=== PATIENT | male | born 1935 | race Caucasian/White ===

== ENCOUNTER → 2016-08-30 | Outpatient (CLI) | payer MEDICARE ==
[2016-08-30 12:40] LABS: Anion Gap 11 mmol/L; Blood Urea Nitrogen 26 mg/dL (9-20); Carbon Dioxide 28 mmol/L (22-30); Chloride 105 mmol/L (98-107); Non-African American GFR(MDRD) >60 (>60 ml/min/1.73 sqM); Potassium 4.6 mmol/L (3.5-5.1); Sodium 144 mmol/L (137-145)
[2016-08-30 12:48] LABS: CH 29.6; CHCM 31.4; HCT 37.3 % (39.0-53.0); HDW 2.33; HGB 11.6 gm/dL (13.0-17.5); MCH 29.5 pg (25.0-35.0); MCHC 31.1 g/dL (31.0-37.0); MCV 94.7 fL (80.0-100.0); Mean Platelet Volume 7.1; RBC 3.94 m/uL (4.30-5.90); RDW 13.8 % (11.5-15.5); WBC 5.5 k/uL (3.8-10.6)
== END | disposition home or self-care (01) ==
LOC: LABPAT 11:54
PROVIDERS: ATTEND Internal Medicine Interventional Cardiology
DX: Z01.812 Encounter for preprocedural laboratory examination (principal); I25.10 Atherosclerotic heart disease of native coronary artery without angina pectoris
CPT/HCPCS: 36415; 80051; 82565; 84520; 85027

== ENCOUNTER 2016-09-08 05:51 | Day surgery (SDC) | payer MEDICARE ==
[2016-09-05 14:41] VITALS: BMI 21.2
[2016-09-08] MEDS ORDERED: ALPRAZolam 0.5 MG TAB PO PRN (05:53)
[2016-09-08] MEDS ORDERED: NITROGLYCERIN SL TABS 0.4 MG TAB SUBLINGUAL PRN (05:53)
[2016-09-08] MEDS ORDERED: ATORVASTATIN 80 MG TAB PO STA (05:53)
[2016-09-08] MEDS ORDERED: ALPRAZolam 0.25 MG TAB PO PRN (05:53)
[2016-09-08] MEDS ORDERED: ASPIRIN 325 MG TAB PO STA (05:53)
[2016-09-08] MEDS ORDERED: SODIUM CHLORIDE 0.9% 1,000 ML in EMPTY BAG 1 BAG IV ONE (05:53)
[2016-09-08 06:21] VITALS: RESP 16; TEMP 98.1
[2016-09-08 06:25] LABS: Glucose,Whole Blood 92 mg/dL (75-99)
[2016-09-08] MEDS ORDERED: MIDAZOLAM 2 MG/2 ML VIAL ONE (06:40)
[2016-09-08] MEDS ORDERED: fentaNYL (PF) 50 MCG/ML 2 ML AMP ONE (06:41)
[2016-09-08] MEDS: BENZOCAINE SPRAY 100 APPLIC/CAN MUCOUS MEM ONE ×2 (06:55→07:00)
[2016-09-08] MEDS ORDERED: SODIUM CHLORIDE 0.9% 1,000 ML IV ONE (07:05)
[2016-09-08] MEDS ORDERED: fentaNYL (PF) 50 MCG/ML 2 ML AMP IV ONE (07:11)
[2016-09-08] MEDS ORDERED: MIDAZOLAM 2 MG/2 ML VIAL IVP ONE (07:11)
[2016-09-08] MEDS ORDERED: LIDOCAINE 2% INJ 20 MG/ML (20 ML MDV) ONE (07:19)
[2016-09-08] MEDS ORDERED: LIDOCAINE 2% INJ 20 MG/ML SQ ONE (07:50)
[2016-09-08] MEDS ORDERED: IOHEXOL 350 MG/ML 125ML BOTTLE INJ ONE (08:24)
[2016-09-08 08:35] LABS: Site PA
[2016-09-08 08:36] LABS: Site RA
[2016-09-08 08:36] LABS: Site FA
[2016-09-08] MEDS ORDERED: RX INFO: IV CONTRAST WAS GIVEN 1 EACH MISC MISCELLANE PRN (08:42)
[2016-09-08] MEDS ORDERED: SODIUM CHLORIDE 0.9% 1,000 ML IV SCH (08:45)
[2016-09-08] MEDS ORDERED: FERROUS SULFATE 325 MG TAB PO SCH (09:00)
[2016-09-08] MEDS ORDERED: HYDROCHLOROTHIAZIDE 12.5 MG CAP PO SCH (09:00)
[2016-09-08] MEDS ORDERED: NON-FORMULARY DRUG (Ubidecarenone [Co Q-10] 200 MG) PO SCH (09:00)
[2016-09-08] MEDS ORDERED: CHOLECALCIFEROL 1,000 UNIT TAB PO SCH (09:00)
[2016-09-08 13:29] VITALS: BP 121/58; PULSE 60
--- NOTE | 2016-09-08 17:30 | CC ---
DATE OF SERVICE: Mr. Contreras is an 81-year-old male who was noted to have progression of his aortic valve stenosis. In view of that, recommendation was made regarding cardiac catheterization. The procedure as well as risks and complications were discussed with the patient, who was in full understanding and agreement. PROCEDURE: Patient was brought to botany laboratory assistant in a fasting, semi-sedated state after receiving fentanyl and Benadryl and achieving moderate conscious sedated state. Using Xylocaine anesthesia and Seldinger technique, a 6 Russian sheath was introduced in the right femoral artery and an 8 Russian sheath in the right femoral vein. Right heart catheterization was performed using [place] catheter. Multiple pressures and samples were obtained. Cardiac output by thermodilution was calculated. Following that, selective right and left coronary angiography was performed with 6 Russian 4 Bend right and left Amairani catheters. Multiple views were taken of the arteries, including hemiaxial views. Following that, a 6 Russian tight pigtail catheter was introduced into the left ventricle and a 30-degree AREVALO view of the left ventricle was obtained. Following that, catheters and sheaths were removed. Hemostasis was obtained with compression of the right groin. There were no immediate complications. Patient was returned to his room in stable condition. FINDINGS HEMODYNAMICS: Pulmonary artery saturation 80%. Right atrial saturation 82%. Femoral artery saturation 97%. Pulmonary artery systolic pressure of 16 with an end-diastolic of 4 and a mean of 7. Pulmonary capillary wedge pressure A wave of 7, V wave of 10, with a mean of 5 mmHg. Right ventricular systolic pressure of 22 with an end-diastolic of 3 mmHg. Right atrial A wave of 3, V wave of 2, with a mean of 2 mmHg. Left ventricular end-diastolic pressure of 8 mmHg. The peak gradient across the aortic valve was 60 mmHg. The cardiac output by thermodilution 5.6 L/minute. Aortic valve area of 0.9 sq cm. FLUOROSCOPY: There is severe calcification involving the aortic valve and the coronary arteries. LEFT MAIN: This is a large-sized vessel bifurcating into left circumflex, left anterior descending artery. Left main coronary artery has a 20% to 30% plaque distally prior to the bifurcation in a long segment. LEFT ANTERIOR DESCENDING ARTERY: This is a large-sized vessel reaching toward the apex with a wrap around the apex segment giving rise to a moderately sized diagonal branch. Left anterior descending artery has diffuse intimal disease with an area of stenosis up to 40%. The takeoff of the diagonal branch has an 80% to 85% stenosis. The rest of the vessel has no high-grade stenosis. LEFT CIRCUMFLEX: This is a non-dominant vessel, large in caliber, giving rise to 2 obtuse marginal branches. The first one has a branching segment. The left circumflex has diffuse intimal disease with an area of stenosis up to 30% to 40% without any evidence of high-grade stenosis. RIGHT CORONARY ARTERY: This is a large dominant vessel bifurcating distally into PDA and posterolateral segment and branches, calcified in the mid segment; has an area of stenosis up to 30%. The rest of the vessel has no high-grade stenosis. LEFT VENTRICULOGRAM: Left ventriculogram was performed in 30-degree AREVALO view and revealed normal left ventricular size and systolic function. The ejection fraction was 60%. There was mild mitral regurgitation. CONCLUSION: 1. Calcified coronary arteries. 2. Heavily calcified aortic valve. 3. Mild disease in the distal left main with significant disease of the ostium of the diagonal branch and mild to moderate triple-vessel disease. 4. Normal left ventricular size and systolic function. 5. Severe aortic stenosis. RECOMMENDATIONS: In view of the findings and anatomy, I have recommended proceeding with evaluation for TAVR. Those findings and recommendations were discussed with the patient and his family, and they are in full understanding and agreement. DURATION OF PROCEDURE: 35 minutes.
--- NOTE | 2016-09-08 17:32 | LTR ---
September 08, 2016 RE: Shaheen Contreras Dear Dr. Arce, I had the pleasure of performing cardiac catheterization on Mr. Contreras at [facility] on September 08, and a full copy of the procedure note will be forwarded to you. In brief, he was found to have mild to moderate triple-vessel coronary artery disease with a severely calcified aortic valve and severe aortic stenosis. Based on those findings, I have recommended proceeding with evaluation for TAVR. I will keep you updated on his progress. Thank you again for allowing me to participate in his care. Sincerely, SIMONA ARANDA MD
[2016-09-08] MEDS ORDERED: ATORVASTATIN 40 MG TAB PO SCH (21:00)
[2016-09-08] MEDS ORDERED: NON-FORMULARY DRUG (Lisinopril [Lisinopril] 40 MG) PO SCH (21:00)
[2016-09-08] MEDS ORDERED: NON-FORMULARY DRUG (Aspirin [Adult Low Dose Aspirin Ec] 81 MG) PO SCH (21:00)
[2016-09-09] MEDS ORDERED: NON-FORMULARY DRUG (Omeprazole [Prilosec] 20 MG) PO SCH (07:30)
--- NOTE | 2016-09-13 09:46 | ECHOT ---
DATE OF SERVICE: CLINICAL INFORMATION: Evaluation of aortic valve. PROCEDURE: After explaining the procedure to the patient as well as the risks and complications, his blood pressure, heart rate, O2 saturation was monitored. The throat was sprayed with Cetacaine. He received 2 mg of intravenous Versed, 50 mcg intravenous fentanyl. After achieving moderate conscious sedation state, the probe was introduced into the esophagus without difficulty. Images were obtained. Following that, the probe was removed. There were no immediate complications. FINDINGS: Left atrial size is normal. Left atrial appendage is normal. Left ventricular size and systolic function normal. The aortic valve is a tricuspid valve heavily calcified with significant reduction in the opening. The aortic valve area by planimetry 0.9 sq cm. The mitral valve revealed mild thickening of the leaflets. The tricuspid valve is normal. Descending thoracic aorta revealed mild atherosclerotic changes. No pericardial effusion was noted. Contrast bubble study was performed and revealed no evidence of shunting across the interatrial septum with Valsalva maneuver. Doppler pulse wave and color Doppler obtained and revealed a mild mitral and tricuspid regurgitation. The peak gradient across the aortic valve was 64 mmHg with a mean of 29 mmHg. There was no shunting by color Doppler study. CONCLUSION: 1. Normal left ventricular size and systolic function and left ventricular hypertrophy. 2. Severe aortic stenosis with tricuspid valve and a peak gradient of 64 mmHg and a valve area of 0.9 sq cm. 3. Mild mitral and tricuspid regurgitation. 4. Mild atherosclerotic changes of the descending thoracic aorta.
== END 2016-09-08 16:09 | disposition home or self-care (01) ==
LOC: CATHCVL 05:51
PROVIDERS: ATTEND Internal Medicine Interventional Cardiology
DX: I25.10 Atherosclerotic heart disease of native coronary artery without angina pectoris (principal); I25.84 Coronary atherosclerosis due to calcified coronary lesion; I08.2 Rheumatic disorders of both aortic and tricuspid valves; I70.0 Atherosclerosis of aorta; I51.7 Cardiomegaly; I10 Essential (primary) hypertension; E78.2 Mixed hyperlipidemia; Z82.49 Family history of ischemic heart disease and other diseases of the circulatory system; E11.9 Type 2 diabetes mellitus without complications; Z79.84 Long term (current) use of oral hypoglycemic drugs; I73.9 Peripheral vascular disease, unspecified; Z79.82 Long term (current) use of aspirin; Z79.899 Other long term (current) drug therapy
CPT/HCPCS: 93312; 93320; 93325; 93460; 85018; 82810; 99152; 99153 ×6; C1769 ×3; C1894 ×2; J2001; J2250; J3010; Q9967

== ENCOUNTER 2018-05-17 17:53 | Inpatient (IN) | payer MEDICARE ==
[2018-05-17] MEDS ORDERED: SODIUM CHLORIDE 0.9% 500 ML 500 ML IV STA (18:21)
[2018-05-17] MEDS ORDERED: SODIUM CHLORIDE 0.9% 1,000 ML IV STA (18:21)
[2018-05-17] MEDS ORDERED: DIPH,PERTUS(ACELL)TETVAC-LF 0.5 ML VIAL IM ONE (18:22)
[2018-05-17 18:56] LABS: Basophils % (A) 0 %; Eosinophils % (A) 0 %; HCT 42.3 % (39.0-53.0); HGB 13.7 gm/dL (13.0-17.5); Lymphocytes # (A) 0.6 k/uL (1.0-4.8); Lymphocytes % (A) 4 %; MCH 29.6 pg (25.0-35.0); MCHC 32.4 g/dL (31.0-37.0); MCV 91.4 fL (80.0-100.0); Mean Platelet Volume 6.8; Monocytes # (A) 0.6 k/uL (0-1.0); Monocytes % (A) 4 %; Neutrophils # (A) 12.7 k/uL (1.3-7.7); Neutrophils % (A) 90 %; RBC 4.62 m/uL (4.30-5.90); RDW 14.2 % (11.5-15.5); WBC 14.1 k/uL (3.8-10.6)
[2018-05-17 18:57] LABS: Platelet Count 91 k/uL (150-450)
--- NOTE | 2018-05-17 19:07 | ED ---
General Adult HPI - General Chief complaint: Weakness Stated complaint: Fall Time Seen by Provider: 05/17/18 17:54 Source: patient, EMS, RN notes reviewed, old records reviewed Mode of arrival: EMS Limitations: no limitations - History of Present Illness Initial comments: 83-year-old male presents with an episode confusion, fall, concern for near- syncope. Patient was found by his son in the bathroom next to the toilet. Patient denied pain complaints, but have some minor trauma to the left great toe. Denied head or neck trauma. States he felt unwell. Denied chest pain or abdominal pain. Denies focal numbness or weakness. Denied headache. States he has not had much to eat or drink throughout the day today. Denies fever or chills. Denies cough or URI symptoms. She states he did feel somewhat confused but this has resolved. - Related Data Home Medications Medication Instructions Recorded Confirmed Omeprazole [PriLOSEC] 20 mg PO DAILY 05/10/14 05/17/18 metFORMIN HCL [Glucophage] 500 mg PO BID 05/10/14 05/17/18 Hydrochlorothiazide [Hydrodiuril] 12.5 mg PO DAILY 09/05/16 05/17/18 Lisinopril 40 mg PO HS 09/05/16 05/17/18 Atorvastatin [Lipitor] 20 mg PO HS 05/17/18 05/17/18 Allergies Allergy/AdvReac Type Severity Reaction Status Date / Time No Known Allergies Allergy Verified 05/17/18 18:11 Review of Systems ROS Statement: Those systems with pertinent positive or pertinent negative responses have been documented in the HPI. ROS Other: All systems not noted in ROS Statement are negative. Past Medical History Past Medical History: Diabetes Mellitus, GERD/Reflux, Hyperlipidemia, Hypertension, Osteoarthritis (OA) Additional Past Medical History / Comment(s): heart murmur, [place], back pain, pacemaker History of Any Multi-Drug Resistant Organisms: None Reported Past Surgical History: Orthopedic Surgery, Tonsillectomy Additional Past Surgical History / Comment(s): right shoulder surgery, rt carotid endarterectomy, luis cataracts, rt foot surgery Past Anesthesia/Blood Transfusion Reactions: No Reported Reaction Past Psychological History: No Psychological Hx Reported Smoking Status: Never smoker Past Alcohol Use History: None Reported Past Drug Use History: None Reported - Past Family History Brother(s) Family Medical History: Cancer General Exam Limitations: no limitations General appearance: alert, in no apparent distress Head exam: Present: atraumatic, normocephalic Eye exam: Present: normal appearance, PERRL, EOMI ENT exam: Present: mucous membranes dry Neck exam: Present: normal inspection. Absent: tenderness, meningismus Respiratory exam: Present: normal lung sounds bilaterally, chest wall tenderness (Abrasion and erythema left posterior chest wall.). Absent: respiratory distress, wheezes Cardiovascular Exam: Present: regular rate, normal rhythm GI/Abdominal exam: Present: soft. Absent: distended, tenderness, guarding Extremities exam: Present: normal capillary refill, other (Blister, plantar surface left great toe, 1cm). Absent: pedal edema Neurological exam: Present: alert, oriented X3, CN II-XII intact. Absent: motor sensory deficit Psychiatric exam: Present: normal affect, normal mood Skin exam: Present: warm, dry, intact. Absent: cyanosis, diaphoretic Course Vital Signs 05/17/18 17:55 Temperature 98 F Pulse Rate 110 H Respiratory 16 Rate Blood Pressure 128/81 O2 Sat by Pulse 98 Oximetry EKG Findings - EKG Comments: EKG Findings:: EKG: Temperature electronic pacemaker, rate 62, QRS duration 154 , QTC 45. Medical Decision Making - Medical Decision Making 83-year-old male presenting with possible fall, concern for prolonged downtime. Patient does have minor abrasion to the left posterior chest wall, and superficial abrasion and blistering of the right great toe, no other injuries noted on exam. According to the son he may have been down for 5 or more hours. Patient has no complaints time my evaluation, vital signs are stable, he is alert and oriented, nonfocal neurologic exam. Imaging is obtained including head CT which is negative for intracranial hemorrhage or mass effect, chest x- ray negative for acute cardiopulmonary disease, pelvis x-ray obtained, negative for fracture or dislocation. Patient has mild leukocytosis with no additional signs of infection at this time. Platelets are 91. Patient has significantly elevated creatinine kinase of 5770. Mild troponin elevation which appears chronic for this patient. Urinalysis pending. Patient will be admitted for IV hydration and repeat laboratory testing including serial cardiac enzymes. Diagnosis: Dehydration, rhabdomyolysis, elevated troponin - Lab Data Result diagrams: 05/17/18 18:39 05/17/18 18:39 Lab Results 05/17/18 05/17/18 05/17/18 Range/Units 18:39 18:39 18:39 WBC 14.1 H (3.8-10.6) k/uL RBC 4.62 (4.30-5.90) m/uL Hgb 13.7 (13.0-17.5) gm/dL Hct 42.3 (39.0-53.0) % MCV 91.4 (80.0-100.0) fL MCH 29.6 (25.0-35.0) pg MCHC 32.4 (31.0-37.0) g/dL RDW 14.2 (11.5-15.5) % Plt Count 91 L (150-450) k/uL Neutrophils % 90 % Lymphocytes % 4 % Monocytes % 4 % Eosinophils % 0 % Basophils % 0 % Neutrophils # 12.7 H (1.3-7.7) k/uL Lymphocytes # 0.6 L (1.0-4.8) k/uL Monocytes # 0.6 (0-1.0) k/uL Eosinophils # 0.0 (0-0.7) k/uL Basophils # 0.0 (0-0.2) k/uL PT (9.0-12.0) sec INR (<1.2) APTT (22.0-30.0) sec Sodium 143 (137-145) mmol/L Potassium 4.0 (3.5-5.1) mmol/L Chloride 108 H (98-107) mmol/L Carbon Dioxide 26 (22-30) mmol/L Anion Gap 9 mmol/L BUN 32 H (9-20) mg/dL Creatinine 1.08 (0.66-1.25) mg/dL Est GFR (CKD-EPI)AfAm 72 (>60 ml/min/1.73 sqM) Est GFR (CKD-EPI)NonAf 63 (>60 ml/min/1.73 sqM) Glucose 126 H (74-99) mg/dL Plasma Lactic Acid Adriel (0.7-2.0) mmol/L Calcium 10.1 (8.4-10.2) mg/dL Magnesium 2.0 (1.6-2.3) mg/dL Total Bilirubin 1.1 (0.2-1.3) mg/dL AST 121 H (17-59) U/L ALT 48 (21-72) U/L Alkaline Phosphatase 57 (38-126) U/L Total Creatine Kinase 5779 H* (55-170) U/L CK-MB (CK-2) 23.8 H (0.0-2.4) ng/mL CK-MB (CK-2) Rel Index Troponin I 0.090 H* (0.000-0.034) ng/mL Total Protein 7.5 (6.3-8.2) g/dL Albumin 4.3 (3.5-5.0) g/dL 05/17/18 05/17/18 Range/Units 18:39 18:39 WBC (3.8-10.6) k/uL RBC (4.30-5.90) m/uL Hgb (13.0-17.5) gm/dL Hct (39.0-53.0) % MCV (80.0-100.0) fL MCH (25.0-35.0) pg MCHC (31.0-37.0) g/dL RDW (11.5-15.5) % Plt Count (150-450) k/uL Neutrophils % % Lymphocytes % % Monocytes % % Eosinophils % % Basophils % % Neutrophils # (1.3-7.7) k/uL Lymphocytes # (1.0-4.8) k/uL Monocytes # (0-1.0) k/uL Eosinophils # (0-0.7) k/uL Basophils # (0-0.2) k/uL PT 10.6 (9.0-12.0) sec INR 1.0 (<1.2) APTT 23.5 (22.0-30.0) sec Sodium (137-145) mmol/L Potassium (3.5-5.1) mmol/L Chloride (98-107) mmol/L Carbon Dioxide (22-30) mmol/L Anion Gap mmol/L BUN (9-20) mg/dL Creatinine (0.66-1.25) mg/dL Est GFR (CKD-EPI)AfAm (>60 ml/min/1.73 sqM) Est GFR (CKD-EPI)NonAf (>60 ml/min/1.73 sqM) Glucose (74-99) mg/dL Plasma Lactic Acid Adriel 1.7 (0.7-2.0) mmol/L Calcium (8.4-10.2) mg/dL Magnesium (1.6-2.3) mg/dL Total Bilirubin (0.2-1.3) mg/dL AST (17-59) U/L ALT (21-72) U/L Alkaline Phosphatase (38-126) U/L Total Creatine Kinase (55-170) U/L CK-MB (CK-2) (0.0-2.4) ng/mL CK-MB (CK-2) Rel Index Troponin I (0.000-0.034) ng/mL Total Protein (6.3-8.2) g/dL Albumin (3.5-5.0) g/dL Disposition Clinical Impression: Dehydration, Rhabdomyolysis, Elevated troponin Disposition: ADMITTED IP TO THIS HOSP Condition: Stable Is patient prescribed a controlled substance at d/c from ED?: No Referrals: Rudy Arce MD [Primary Care Provider] - 1-2 days Time of Disposition: 20:26
[2018-05-17 19:09] LABS: Albumin 4.3 g/dL (3.5-5.0); Calcium 10.1 mg/dL (8.4-10.2); Partial Thromboplastin Time 23.5 sec (22.0-30.0); Prothrombin Time 10.6 sec (9.0-12.0); Total Bilirubin 1.1 mg/dL (0.2-1.3)
[2018-05-17 19:10] LABS: Total Protein 7.5 g/dL (6.3-8.2)
[2018-05-17 19:18] LABS: Creatine Kinase MB 23.8 ng/mL (0.0-2.4)
[2018-05-17 19:31] LABS: Troponin I 0.09 ng/mL (0.000-0.034)
--- NOTE | 2018-05-17 19:37 | XR ---
EXAMINATION TYPE: XR pelvis AP view DATE OF EXAM: 05/17/2018 COMPARISON: NONE HISTORY: Pain TECHNIQUE: Single view FINDINGS: Pelvic ring is intact. Proximal femurs and hip joints are intact. Sacroiliac joints appear normal. IMPRESSION: No acute abnormality of the pelvis. No fracture seen.
--- NOTE | 2018-05-17 19:37 | CT ---
EXAMINATION TYPE: CT brain damon enriquez DATE OF EXAM: 05/17/2018 COMPARISON: None HISTORY: Fall. CT DLP: 1205.6 mGycm Automated exposure control for dose reduction was used. TECHNIQUE: CT scan of the head and cervical spine are performed without contrast. FINDINGS: There is diffuse cerebral cortical atrophy. There is no mass effect nor midline shift. Th ere is no sign of intracranial hemorrhage. The calvarium is intact. There is mild white matter hypode nsity around the lateral ventricles. The cervical vertebra have fairly normal alignment. There is degenerative hypertrophic spurring in th e mid and lower cervical spine. Posterior elements are intact. There is multilevel hypertrophic bilat eral facet arthropathy. The skull base is intact. Prevertebral soft tissues appear normal. IMPRESSION: Cerebral atrophy and chronic small vessel ischemia. No acute intracranial abnormality. Mild spondylotic changes in the cervical spine. No fracture seen. Pleural and pulmonary scarring note d at the lung apices.
--- NOTE | 2018-05-17 19:38 | XR ---
EXAMINATION TYPE: XR chest 2V DATE OF EXAM: 05/17/2018 COMPARISON: NONE HISTORY: Weakness. Fall. TECHNIQUE: Frontal and lateral views of the chest are obtained. FINDINGS: There is no heart failure nor confluent pneumonic infiltrate. Costophrenic angles are ind[place] r. Thoracic aorta is atheromatous. There is left axillary pacemaker with the lead tips in right ventr icle. There are chest leads. There is no sign of pneumothorax. There is spurring in the thoracic spin e. There is left axillary pacemaker noted. IMPRESSION: No active cardiopulmonary disease.
[2018-05-17] MEDS ORDERED: NALOXONE 0.4 MG/ML 1 ML VIAL IV PRN (20:14)
[2018-05-17] MEDS ORDERED: ACETAMINOPHEN TAB 325 MG TAB PO PRN (20:14)
[2018-05-17] MEDS ORDERED: ATORVASTATIN 20 MG TAB PO SCH (21:00)
[2018-05-17 22:24] LABS: Glucose,Whole Blood 104 mg/dL (75-99)
[2018-05-18] MEDS: LISINOPRIL 20 MG TAB PO SCH ×2 (00:37→21:24)
[2018-05-18 01:40] LABS: Creatine Kinase MB 22.6 ng/mL (0.0-2.4)
[2018-05-18 02:09] LABS: Troponin I 0.089 ng/mL (0.000-0.034)
[2018-05-18 06:24] LABS: Basophils % (A) 0 %; Eosinophils # (A) 0.1 k/uL (0-0.7); Eosinophils % (A) 1 %; HCT 36.7 % (39.0-53.0); HGB 11.4 gm/dL (13.0-17.5); Lymphocytes # (A) 0.7 k/uL (1.0-4.8); Lymphocytes % (A) 6 %; MCH 28.7 pg (25.0-35.0); MCHC 30.9 g/dL (31.0-37.0); MCV 92.9 fL (80.0-100.0); Mean Platelet Volume 7.5; Monocytes # (A) 0.6 k/uL (0-1.0); Monocytes % (A) 6 %; Neutrophils % (A) 85 %; RBC 3.95 m/uL (4.30-5.90); WBC 10.5 k/uL (3.8-10.6)
--- NOTE | 2018-05-18 06:27 | P.CRDCN ---
History of Present Illness Consult date: 05/18/18 Chief complaint: Loss of consciousness History of present illness: This is a pleasant 83-year-old gentleman who sees Dr. Talbot in the office as an outpatient with a past medical history significant for permanent pacemaker, mild nonobstructive coronary artery disease, and severe aortic stenosis, was brought to the emergency room by his family after he was found on the floor at home. The patient himself is a very poor historian. The history was taken from the chart, as well as from the nurse taking care of the patient. The patient was found by his son laying down on the bathroom floor for unknown duration. The patient did not have any symptoms of chest pain or chest discomfort, and no shortness of breath, and he does not recall having any feeling of heart racing or fluttering before are on the episode. The patient stated that he fell down. He stated that he was not eating and drinking well for the last several days. The patient was brought to the emergency room and he was diagnosed with rhabdomyolysis. His CK was around 4000. The troponin was slightly elevated but below 1. The EKG showed AV sequential pacing. The patient underwent a chest x-ray which showed no acute abnormalities. The x-ray of the pelvis as well as a computed tomography scan of the brain also came in to be unremarkable. In 2017, he was diagnosed with severe aortic stenosis and at that point he underwent a heart catheterization which revealed extremely calcified aorta and coronary arteries with only mild nonobstructive coronary artery disease. Subsequently he underwent transesophageal echocardiogram which revealed severe aortic stenosis which was confirmed by gradient as well as by area. At that point TAVR was advised. The patient is not sure if he didn't have the procedure. On physical examination today he does have a pansystolic murmur quite prominent over the apex more than the right upper sternal border. I will obtain an echocardiogram for further clarification. The patient himself is not sure if he didn't have any procedure done. We get involved in the care of the patient mailing because of abnormal cardiac enzymes. The patient did not recall having any symptoms of chest pain or chest discomfort nor shortness of breath more than his baseline. Having said that, I would recommend a conservative medical approach. Currently he is on IV fluid which we will continue. He is on statin which I will DC because of the rhabdomyolysis. I would add aspirin to the current medical regimen. No need for any metoprolol because the patient's baseline heart rate has been on the slow side already. Also I would obtain an echocardiogram was Doppler. Past Medical History Past Medical History: Diabetes Mellitus, GERD/Reflux, Hyperlipidemia, Hypertension, Osteoarthritis (OA) Additional Past Medical History / Comment(s): heart murmur, NATIVE, back pain, pacemaker History of Any Multi-Drug Resistant Organisms: None Reported Past Surgical History: Orthopedic Surgery, Tonsillectomy Additional Past Surgical History / Comment(s): right shoulder surgery, rt carotid endarterectomy, luis cataracts, rt foot surgery Past Anesthesia/Blood Transfusion Reactions: No Reported Reaction Past Psychological History: No Psychological Hx Reported Smoking Status: Never smoker Past Alcohol Use History: Occasional Past Drug Use History: None Reported - Past Family History Brother(s) Family Medical History: Cancer Medications and Allergies Home Medications Medication Instructions Recorded Confirmed Type Omeprazole [PriLOSEC] 20 mg PO DAILY 05/10/14 05/17/18 History metFORMIN HCL [Glucophage] 500 mg PO BID 05/10/14 05/17/18 History Hydrochlorothiazide [Hydrodiuril] 12.5 mg PO DAILY 09/05/16 05/17/18 History Lisinopril 40 mg PO HS 09/05/16 05/17/18 History Atorvastatin [Lipitor] 20 mg PO HS 05/17/18 05/17/18 History Allergies Allergy/AdvReac Type Severity Reaction Status Date / Time No Known Allergies Allergy Verified 05/17/18 18:11 Physical Exam Vitals: Vital Signs Temp Pulse Resp BP Pulse Ox 05/18/18 04:30 97.4 F L 59 L 16 126/70 98 05/18/18 04:00 59 L 16 05/18/18 03:30 59 L 18 05/18/18 03:00 61 18 05/18/18 02:30 60 16 144/66 05/18/18 02:00 60 20 05/18/18 01:30 60 14 05/18/18 01:00 61 18 05/18/18 00:31 61 18 05/18/18 00:30 61 20 132/69 05/18/18 00:00 97.4 F L 59 L 18 134/70 98 05/17/18 23:30 60 05/17/18 23:01 16 05/17/18 23:00 97.7 F 62 16 139/77 98 05/17/18 22:58 62 17 05/17/18 22:00 148/85 05/17/18 21:30 61 16 150/75 05/17/18 21:00 62 17 151/80 05/17/18 20:30 63 18 142/71 05/17/18 19:30 141/74 05/17/18 17:55 98 F 110 H 16 128/81 98 Intake and Output 05/17/18 05/17/18 05/18/18 14:59 22:59 06:59 Intake Total 125 1000 Output Total 300 Balance 125 700 Intake: IV 125 1000 Sodium Chloride 0.9% 1, 125 1000 000 ml @ 125 mls/hr IV . Q8H STA Rx#:[id number] Output: Urine 300 Other: Voiding Method Urinal # Voids 0 Weight 77.111 kg - Constitutional General appearance: no acute distress - Respiratory Respiratory: bilateral: CTA - Cardiovascular Rhythm: regular Heart sounds: normal: S1, S2 Abnormal Heart Sounds: systolic murmur Results 05/17/18 18:39 05/17/18 18:39 Cardiac Enzymes 05/17/18 05/17/18 05/18/18 Range/Units 18:39 18:39 00:37 AST 121 H (17-59) U/L CK-MB (CK-2) 23.8 H 22.6 H (0.0-2.4) ng/mL Troponin I 0.090 H* 0.089 H* (0.000-0.034) ng/mL Coagulation 05/17/18 Range/Units 18:39 PT 10.6 (9.0-12.0) sec APTT 23.5 (22.0-30.0) sec CBC 05/17/18 Range/Units 18:39 WBC 14.1 H (3.8-10.6) k/uL RBC 4.62 (4.30-5.90) m/uL Hgb 13.7 (13.0-17.5) gm/dL Hct 42.3 (39.0-53.0) % Plt Count 91 L (150-450) k/uL Comprehensive Metabolic Panel 05/17/18 Range/Units 18:39 Sodium 143 (137-145) mmol/L Potassium 4.0 (3.5-5.1) mmol/L Chloride 108 H (98-107) mmol/L Carbon Dioxide 26 (22-30) mmol/L BUN 32 H (9-20) mg/dL Creatinine 1.08 (0.66-1.25) mg/dL Glucose 126 H (74-99) mg/dL Calcium 10.1 (8.4-10.2) mg/dL AST 121 H (17-59) U/L ALT 48 (21-72) U/L Alkaline Phosphatase 57 (38-126) U/L Total Protein 7.5 (6.3-8.2) g/dL Albumin 4.3 (3.5-5.0) g/dL Current Medications Generic Name Dose Route Start Last Admin Trade Name Freq PRN Reason Stop Dose Admin Acetaminophen 650 mg 05/17/18 20:14 Tylenol Tab PO Q6HR PRN Mild Pain or Fever > 100.5 Atorvastatin Calcium 20 mg 05/17/18 21:00 05/18/18 00:37 Lipitor PO 20 mg HS ANGEL Administration Hydrochlorothiazide 12.5 mg 05/18/18 09:00 Hydrodiuril PO DAILY ANGEL Lisinopril 40 mg 05/17/18 21:00 05/18/18 00:37 Zestril PO 40 mg HS ANGEL Administration Metformin HCl 500 mg 05/18/18 07:30 Glucophage PO BID-W/MEALS ANGEL Naloxone HCl 0.2 mg 05/17/18 20:14 Narcan IV Q2M PRN Opioid Reversal Pantoprazole Sodium 40 mg 05/18/18 07:30 Protonix PO AC-BRKFST ANGEL Intake and Output 05/17/18 05/17/18 05/18/18 14:59 22:59 06:59 Intake Total 125 1000 Output Total 300 Balance 125 700 Intake: IV 125 1000 Sodium Chloride 0.9% 1, 125 1000 000 ml @ 125 mls/hr IV . Q8H STA Rx#:[id number] Output: Urine 300 Other: Voiding Method Urinal # Voids 0 Weight 77.111 kg Patient Weight 05/18/18 06:59 Weight 77.111 kg 05/17/18 18:39 05/17/18 18:39 Assessment and Plan Assessment: Assessment #1 status post fall #2 pre-syncope/syncope #3 rhabdomyolysis secondary to the above #4 mildly abnormal cardiac enzymes #5 status post permanent pacemaker implantation Plan #1 conservative medical approach #2 continue IV fluid #3 continue monitor the kidney function and electrolytes #4 DC statin at this point #4 add aspirin to her current medical regimen #6 obtain an echocardiogram was Doppler #7 follow-up with the patient. Thank you for allowing us participate in his care
[2018-05-18 06:31] LABS: Platelet Count 84 k/uL (150-450)
[2018-05-18 06:33] LABS: Albumin 3.4 g/dL (3.5-5.0); Magnesium 1.9 mg/dL (1.6-2.3); Potassium 3.8 mmol/L (3.5-5.1); Total Bilirubin 0.9 mg/dL (0.2-1.3); Total Protein 6.2 g/dL (6.3-8.2)
[2018-05-18 06:56] LABS: Creatine Kinase MB 18.8 ng/mL (0.0-2.4)
[2018-05-18] MEDS: PANTOPRAZOLE 40 MG TABLET PO SCH (06:58)
[2018-05-18] MEDS: metFORMIN 500 MG TAB PO SCH ×2 (06:58→17:10)
[2018-05-18] MEDS ORDERED: POTASSIUM CHLORIDE ER 20 MEQ TAB.ER PO SCH (07:00)
[2018-05-18 07:07] LABS: Troponin I 0.078 ng/mL (0.000-0.034)
[2018-05-18] MEDS: HYDROCHLOROTHIAZIDE 12.5 MG CAP PO SCH (10:08)
[2018-05-18] MEDS: ASPIRIN 81 MG PO SCH (10:08)
--- NOTE | 2018-05-18 14:41 | P.HPIM ---
History of Present Illness H&P Date: 05/18/18 Chief Complaint: Fall and weakness This is a very pleasant 83-year-old gentleman who comes in for above-mentioned complaints. At the time of examination the patient is alert oriented 3 but was hard of hearing. He said that he had a fall yesterday he doesn't know the circumstances under which she fell. Apparently the son found him near the toilet. The downtime was apparently about 5 hours. Not sure whether the patient lost consciousness or no at that time. Patient denies any chest pain or racing heart, no cough no shortness of breath, no abdominal pain, nausea and vomiting, no diarrhea constipation, no tingling numbness of any of the extremities, no itch or rash. ER course-patient's vitals were stable lab work was done which showed WBC 14.1 hemoglobin 13.7 platelets 91 sodium 143 potassium 4.0 B1 32 creatinine 1.08. AST 121 ALP 48 CPK levels 5779 troponin 0.09. Patient was started on IV fluids , cardiology was consulted and patient was admitted to the hospitalist service for further evaluation and management. Review of Systems All systems: negative Past Medical History Past Medical History: Diabetes Mellitus, GERD/Reflux, Hyperlipidemia, Hypertension, Osteoarthritis (OA) Additional Past Medical History / Comment(s): heart murmur, ST[place], back pain, pacemaker History of Any Multi-Drug Resistant Organisms: None Reported Past Surgical History: Orthopedic Surgery, Tonsillectomy Additional Past Surgical History / Comment(s): right shoulder surgery, rt carotid endarterectomy, luis cataracts, rt foot surgery Past Anesthesia/Blood Transfusion Reactions: No Reported Reaction Past Psychological History: No Psychological Hx Reported Smoking Status: Never smoker Past Alcohol Use History: Occasional Past Drug Use History: None Reported - Past Family History Brother(s) Family Medical History: Cancer Medications and Allergies Home Medications Medication Instructions Recorded Confirmed Type Omeprazole [PriLOSEC] 20 mg PO DAILY 05/10/14 05/17/18 History metFORMIN HCL [Glucophage] 500 mg PO BID 05/10/14 05/17/18 History Hydrochlorothiazide [Hydrodiuril] 12.5 mg PO DAILY 09/05/16 05/17/18 History Lisinopril 40 mg PO HS 09/05/16 05/17/18 History Atorvastatin [Lipitor] 20 mg PO HS 05/17/18 05/17/18 History Allergies Allergy/AdvReac Type Severity Reaction Status Date / Time No Known Allergies Allergy Verified 05/17/18 18:11 Physical Exam Vitals: Vital Signs Temp Pulse Resp BP Pulse Ox 05/18/18 12:00 97.5 F L 65 16 117/64 98 05/18/18 11:30 60 05/18/18 11:00 63 05/18/18 10:30 60 05/18/18 10:00 64 05/18/18 09:30 82 L 05/18/18 09:00 97 05/18/18 08:30 97 05/18/18 08:00 97.4 F L 62 18 110/58 95 05/18/18 07:30 60 18 96 05/18/18 07:00 59 L 18 95 05/18/18 06:30 61 17 94 L 05/18/18 06:00 66 14 93 L 05/18/18 05:30 60 17 97 05/18/18 05:00 59 L 16 95 05/18/18 04:30 97.4 F L 59 L 16 126/70 98 05/18/18 04:00 59 L 16 05/18/18 03:30 59 L 18 05/18/18 03:00 61 18 05/18/18 02:30 60 16 144/66 05/18/18 02:00 60 20 05/18/18 01:30 60 14 05/18/18 01:00 61 18 05/18/18 00:31 61 18 05/18/18 00:30 61 20 132/69 05/18/18 00:00 97.4 F L 59 L 18 134/70 98 05/17/18 23:30 60 05/17/18 23:01 16 05/17/18 23:00 97.7 F 62 16 139/77 98 05/17/18 22:58 62 17 05/17/18 22:00 148/85 05/17/18 21:30 61 16 150/75 05/17/18 21:00 62 17 151/80 05/17/18 20:30 63 18 142/71 05/17/18 19:30 141/74 05/17/18 17:55 98 F 110 H 16 128/81 98 Intake and Output 05/17/18 05/18/18 05/18/18 22:59 06:59 14:59 Intake Total 125 1000 1000 Output Total 300 0 Balance 905 919 5726 Intake: IV 125 1000 1000 Sodium Chloride 0.9% 1, 125 1000 1000 000 ml @ 125 mls/hr IV . Q8H STA Rx#:[id number] Output: Urine 300 0 Other: Voiding Method Urinal Bedside Commode Urinal # Voids 0 0 # Bowel Movements 1 Weight 77.111 kg 70.3 kg On exam, alert and oriented x3. HEENT: Conjunctivae normal. eyes normal. NECK: No JVD. No thyroid enlargement. No LNs CARDIOVASCULAR: S1, S2 positive, systolic murmur appreciated RESPIRATION: Breath sounds diminished in the bases. No rhonchi or crackles. No bronchial breathing. ABDOMEN: Soft, nontender . No guarding. no masses palpable. No ascites, No hepatosplenomegaly.Bowel sounds heard. LEGS: No edema. no swelling NERVOUS SYSTEM: Cranial N 2-12 grossly normal. Moves all 4 limbs. No focal deficits. No sensory deficit. No signs of cerebellar dysfucntion. Skin: no ulcer no rash Joints: No active swelling. No inflammation. Lymphatic system. No LN neck axilla or groin. Results CBC & Chem 7: 05/18/18 05:36 05/18/18 05:36 Labs: Abnormal Lab Results - Last 24 Hours (Table) 05/17/18 05/17/18 05/17/18 Range/Units 18:39 18:39 18:39 WBC 14.1 H (3.8-10.6) k/uL RBC (4.30-5.90) m/uL Hgb (13.0-17.5) gm/dL Hct (39.0-53.0) % MCHC (31.0-37.0) g/dL Plt Count 91 L (150-450) k/uL Neutrophils # 12.7 H (1.3-7.7) k/uL Lymphocytes # 0.6 L (1.0-4.8) k/uL Chloride 108 H (98-107) mmol/L BUN 32 H (9-20) mg/dL Glucose 126 H (74-99) mg/dL POC Glucose (mg/dL) (75-99) mg/dL AST 121 H (17-59) U/L Total Creatine Kinase 5779 H* (55-170) U/L CK-MB (CK-2) 23.8 H (0.0-2.4) ng/mL Troponin I 0.090 H* (0.000-0.034) ng/mL Total Protein (6.3-8.2) g/dL Albumin (3.5-5.0) g/dL 05/17/18 05/18/18 05/18/18 Range/Units 22:13 00:37 05:36 WBC (3.8-10.6) k/uL RBC 3.95 L (4.30-5.90) m/uL Hgb 11.4 L (13.0-17.5) gm/dL Hct 36.7 L (39.0-53.0) % MCHC 30.9 L (31.0-37.0) g/dL Plt Count 84 L (150-450) k/uL Neutrophils # 9.0 H (1.3-7.7) k/uL Lymphocytes # 0.7 L (1.0-4.8) k/uL Chloride (98-107) mmol/L BUN (9-20) mg/dL Glucose (74-99) mg/dL POC Glucose (mg/dL) 104 H (75-99) mg/dL AST (17-59) U/L Total Creatine Kinase 5318 H* (55-170) U/L CK-MB (CK-2) 22.6 H (0.0-2.4) ng/mL Troponin I 0.089 H* (0.000-0.034) ng/mL Total Protein (6.3-8.2) g/dL Albumin (3.5-5.0) g/dL 05/18/18 05/18/18 Range/Units 05:36 05:36 WBC (3.8-10.6) k/uL RBC (4.30-5.90) m/uL Hgb (13.0-17.5) gm/dL Hct (39.0-53.0) % MCHC (31.0-37.0) g/dL Plt Count (150-450) k/uL Neutrophils # (1.3-7.7) k/uL Lymphocytes # (1.0-4.8) k/uL Chloride 110 H (98-107) mmol/L BUN 31 H (9-20) mg/dL Glucose (74-99) mg/dL POC Glucose (mg/dL) (75-99) mg/dL AST 123 H (17-59) U/L Total Creatine Kinase 4820 H* (55-170) U/L CK-MB (CK-2) 18.8 H (0.0-2.4) ng/mL Troponin I 0.078 H* (0.000-0.034) ng/mL Total Protein 6.2 L (6.3-8.2) g/dL Albumin 3.4 L (3.5-5.0) g/dL Thrombosis Risk Factor Assmnt - Choose All That Apply Any of the Below Risk Factors Present?: Yes Each Factor Represents 1 point: Medical pt on bed rest Other Risk Factors: No Other congenital or acquired thrombophilia - If yes, enter type in comment: No Thrombosis Risk Factor Assessment Total Risk Factor Score: 1 Thrombosis Risk Factor Assessment Level: Low Risk Assessment and Plan Assessment: - Fall need to rule out the cause - Presyncope/syncope - Rhabdomyolysis secondary to above - Increased troponin levels - Hypertension - Diabetes - Severe aortic stenosis - Leukocytosis which is resolved probably reactive Plan - We'll admit the patient to ICU - Continue IV fluids - Monitor CPK and troponin levels - Cardiology consulted. Appreciate the recommendations - We will resume patient's home medications - We'll order for PT OT consult - DVT and GI prophylaxis - Lab work in the morning - Expected length of stay is more than 2 midnights - Patient is full code Time with Patient: Greater than 30
[2018-05-19 05:09] LABS: Basophils % (A) 0 %; Eosinophils # (A) 0.2 k/uL (0-0.7); Eosinophils % (A) 2 %; HCT 35.8 % (39.0-53.0); HGB 11.3 gm/dL (13.0-17.5); Hypochromasia Slight; Lymphocytes # (A) 0.8 k/uL (1.0-4.8); Lymphocytes % (A) 10 %; MCH 29.8 pg (25.0-35.0); MCHC 31.6 g/dL (31.0-37.0); MCV 94.4 fL (80.0-100.0); Mean Platelet Volume 7.2; Monocytes # (A) 0.5 k/uL (0-1.0); Monocytes % (A) 6 %; Neutrophils # (A) 6.2 k/uL (1.3-7.7); Neutrophils % (A) 80 %; RBC 3.79 m/uL (4.30-5.90); RDW 13.7 % (11.5-15.5); WBC 7.9 k/uL (3.8-10.6)
[2018-05-19 05:12] LABS: Platelet Count 79 k/uL (150-450)
[2018-05-19 05:19] LABS: ALT 55 U/L (21-72); AST 107 U/L (17-59); Alkaline Phosphatase 52 U/L (38-126); Anion Gap 4 mmol/L; Blood Urea Nitrogen 26 mg/dL (9-20); Calcium 8.7 mg/dL (8.4-10.2); Carbon Dioxide 24 mmol/L (22-30); Chloride 112 mmol/L (98-107); Glucose 100 mg/dL (74-99); Potassium 3.9 mmol/L (3.5-5.1); Sodium 140 mmol/L (137-145); Total Bilirubin 0.9 mg/dL (0.2-1.3); Total Protein 5.7 g/dL (6.3-8.2)
[2018-05-19] MEDS: PANTOPRAZOLE 40 MG TABLET PO SCH (07:24)
[2018-05-19] MEDS: metFORMIN 500 MG TAB PO SCH ×2 (07:24→17:26)
--- NOTE | 2018-05-19 08:31 | ECHOF ---
Referral Reason:heart function evaluation MEASUREMENTS -------- HEIGHT: 188.0 cm WEIGHT: 77.1 kg BP: 126/70 IVSd: 1.4 cm (0.6 - 1.1) LVIDd: 4.0 cm (3.9 - 5.3) LVPWd: 1.4 cm (0.6 - 1.1) IVSs: 1.9 cm LVIDs: 2.7 cm LVPWs: 2.1 cm LA Diam: 3.4 cm (2.7 - 3.8) RVIDd: 3.0 cm (< 3.3) Ao Diam: 2.6 cm (2.0 - 3.7) AV Cusp: 1.3 cm (1.5 - 2.6) EPSS: 1.0 cm MV E Patrick: 0.74 m/s MV DecT: 390 ms MV A Patrick: 0.74 m/s MV E/A Ratio: 1.00 AV maxP.84 mmHg AV meanP.19 mmHg RAP: 5.00 mmHg RVSP: 25.25 mmHg MV EF SLOPE: 33.97 mm/s (70 - 150) MV EXCURSION: 12.84 mm (> 18.000) FINDINGS -------- Paced rhythm. This was a technically adequate study. The left ventricular size is normal. There is moderate concentric left ventricular hypertrophy. O verall left ventricular systolic function is normal with, an EF between 55 - 60 %. The right ventricle is normal in size. The left atrial size is normal. The right atrium is normal in size. Peak/mean gradient across the Aortic Valve is 9.84mmHg / 4.19mmHg. Normally functioning bioprosthet ic valve. There is trace mitral regurgitation. Mild tricuspid regurgitation present. Right ventricular systolic pressure is normal at < 35 mmHg. There is no pulmonic regurgitation present. The aortic root size is normal. Normal inferior vena cava with normal inspiratory collapse consistent with estimated right atrial pre ssure of 5 mmHg. The inferior vena cava is mildly dilated. There is no pericardial effusion. CONCLUSIONS -------- 1. Paced rhythm. 2. This was a technically adequate study. 3. The left ventricular size is normal. 4. There is moderate concentric left ventricular hypertrophy. 5. Overall left ventricular systolic function is normal with, an EF between 55 - 60 %. 6. The right ventricle is normal in size. 7. The left atrial size is normal. 8. The right atrium is normal in size. 9. Peak/mean gradient across the Aortic Valve is 9.84mmHg / 4.19mmHg. 10. Normally functioning bioprosthetic valve. 11. There is trace mitral regurgitation. 12. Mild tricuspid regurgitation present. 13. Right ventricular systolic pressure is normal at < 35 mmHg. 14. There is no pulmonic regurgitation present. 15. The aortic root size is normal. 16. Normal inferior vena cava with normal inspiratory collapse consistent with estimated right atrial pressure of 5 mmHg. 17. The inferior vena cava is mildly dilated. 18. There is no pericardial effusion. D[employer] MARKETING MANAGER: Penelope Adame RDCS
[2018-05-19] MEDS: ASPIRIN 81 MG PO SCH (09:31)
[2018-05-19] MEDS: HYDROCHLOROTHIAZIDE 12.5 MG CAP PO SCH ×2 (09:31)
--- NOTE | 2018-05-19 13:01 | PN ---
PROGRESS NOTE Mr. Contreras is an 83-year-old male, status post aortic valve replacement by TAVR, history of permanent pacemaker implantation, who presented with progressive fatigue and was found to have rhabdomyolysis. He is feeling well. Apparently, he fell. He is not sure if he passed out. He had change in mental status. He is back to his baseline at this time. He denies any dizziness, palpitation. He denies any nausea. He had an echocardiogram performed that revealed a preserved systolic function with normal functioning of his bioprosthetic valve. He continues to be on aspirin once a day, hydrochlorothiazide 12.5 mg daily, lisinopril 40 mg daily, metformin, and Protonix. PHYSICAL EXAMINATION: Blood pressure 136/50 with a heart in 70s. LUNGS: Clear. HEART: Regular rate and rhythm, S1, S2, no S3 with systolic murmur, no diastolic murmur. ABDOMEN: Soft, nontender. EXTREMITIES: No edema. LAB DATA: Revealed BUN and creatinine 26 and 0.76. Hemoglobin of 11.3, potassium 3.9. IMPRESSION: 1. Rhabdomyolysis after a fall, resolved. 2. Status post TAVR, stable. 3. Status post permanent pacemaker implantation. 4. Hypertension. RECOMMENDATION: From the cardiac standpoint, the patient is stable. I will increase his level of activity. Follow his renal function. Hopefully, he should be able to be discharged home soon and followed as an outpatient. RON / KIRSTEN: [id number] /
--- NOTE | 2018-05-19 15:09 | P.PN ---
Subjective Progress Note Date: 05/19/18 83-year-old pleasant gentleman was hard of hearing is admitted for rhabdomyolysis secondary to fall. Workup in progress for presyncopal episode. Cardiology following the patient Patient says that he's feeling better but still weak in his legs. He understands he needs physical therapy. He does not complain of any chest pain or racing heart, no cough no shortness of breath, no bowel pain, no nausea and vomiting, Objective - Vital Signs Vital signs: Vital Signs Temp 97.8 F 05/19/18 04:21 Pulse 60 05/19/18 06:15 Resp 21 05/19/18 06:15 BP 136/46 05/19/18 06:15 Pulse Ox 95 05/19/18 06:15 Intake & Output 05/18/18 05/19/18 05/19/18 18:59 06:59 18:59 Intake Total 1625 1260 20 Output Total 0 350 Balance 1625 910 20 Weight 74.1 kg Intake: IV 1625 1260 20 0.9 10 20 Sodium Chloride 0.9% 1, 1625 1250 000 ml @ 125 mls/hr IV . Q8H STA Rx#:[id number] Output: Urine 0 350 Other: Voiding Method Toilet Toilet Urinal # Voids 1 0 1 # Bowel Movements 1 - Exam On exam, alert and oriented x3. HEENT: Conjunctivae normal. eyes normal. NECK: No JVD. No thyroid enlargement. No LNs CARDIOVASCULAR: S1, S2 positive systolic murmur appreciated RESPIRATION: Breath sounds diminished in the bases. No rhonchi or crackles. No bronchial breathing. ABDOMEN: Soft, nontender . No guarding. no masses palpable. No ascites, No hepatosplenomegaly.Bowel sounds heard. LEGS: No edema. no swelling NERVOUS SYSTEM: Cranial N 2-12 grossly normal. Moves all 4 limbs. No focal deficits. No sensory deficit. No signs of cerebellar dysfucntion. Skin: no ulcer no rash Joints: No active swelling. No inflammation. Lymphatic system. No LN neck axilla or groin. - Labs CBC & Chem 7: 05/19/18 04:29 05/19/18 04:29 Labs: Abnormal Lab Results - Last 24 Hours (Table) 05/19/18 05/19/18 Range/Units 04:29 04:29 RBC 3.79 L (4.30-5.90) m/uL Hgb 11.3 L (13.0-17.5) gm/dL Hct 35.8 L (39.0-53.0) % Plt Count 79 L (150-450) k/uL Lymphocytes # 0.8 L (1.0-4.8) k/uL Chloride 112 H (98-107) mmol/L BUN 26 H (9-20) mg/dL Glucose 100 H (74-99) mg/dL AST 107 H (17-59) U/L Total Protein 5.7 L (6.3-8.2) g/dL Albumin 3.0 L (3.5-5.0) g/dL Assessment and Plan Assessment: - Fall need to rule out the cause - Presyncope/syncope - Rhabdomyolysis secondary to above - Increased troponin levels - Hypertension - Diabetes - Severe aortic stenosis - Leukocytosis which is resolved probably reactive Plan - We'll continue to monitor the CPK levels - PTOT consulted - Patient might need to go to rehab facility depending upon physical therapy recommendations - We'll continue the patient's home medications - DVT and GI prophylaxis - We'll continue to follow up on the patient Time with Patient: Greater than 30
[2018-05-19 18:42] LABS: Appearance,Urine Clear (Clear); Bilirubin,Urine Negative (Negative); Blood,Urine Trace (Negative); Color,Urine Yellow; Glucose,Urine (UA) Trace (Negative); Ketones,Urine Negative (Negative); Leukocyte Esterase,Urine Negative (Negative); Mucus,Urine Rare /hpf; Nitrite,Urine Negative (Negative); PH, Urine 5.5 (5.0-8.0); Protein,Urine Negative (Negative); RBC,Urine 2 /hpf (0-5); Specific Gravity,Urine 1.016 (1.001-1.035); Urobilinogen,Urine <2.0 mg/dL (<2.0); WBC,Urine 1 /hpf (0-5)
[2018-05-19] MEDS: LISINOPRIL 20 MG TAB PO SCH (19:47)
[2018-05-20 06:26] LABS: Glucose,Whole Blood 98 mg/dL (75-99)
[2018-05-20] MEDS: metFORMIN 500 MG TAB PO SCH ×2 (06:50→17:19)
[2018-05-20] MEDS: PANTOPRAZOLE 40 MG TABLET PO SCH (06:50)
[2018-05-20 08:04] LABS: Anion Gap 5 mmol/L; Blood Urea Nitrogen 18 mg/dL (9-20); Calcium 8.9 mg/dL (8.4-10.2); Carbon Dioxide 30 mmol/L (22-30); Chloride 107 mmol/L (98-107); Glucose 96 mg/dL (74-99); Potassium 3.7 mmol/L (3.5-5.1); Sodium 142 mmol/L (137-145)
[2018-05-20 08:19] LABS: Creatine Kinase 1280 U/L (55-170)
[2018-05-20] MEDS: ASPIRIN 81 MG PO SCH (09:01)
[2018-05-20] MEDS: HYDROCHLOROTHIAZIDE 12.5 MG CAP PO SCH (09:01)
--- NOTE | 2018-05-20 11:50 | PN ---
PROGRESS NOTE Mr. Contreras is an 83-year-old male with a history of aortic valve replacement by TAVR, who presented with progressive fatigue and lack of energy. He is feeling stronger today. His breathing is better. He is being any chest pain. He has underwent physical therapy. He denies any dizziness or palpitation. The plan is to transfer him to rehab tomorrow. He continues to be on aspirin 81 mg daily, hydrochlorothiazide 12.5 mg, lisinopril 40 mg daily, metformin 500 mg twice a day and Protonix. PHYSICAL EXAMINATION: Blood pressure 148/70 with a heart rate in 70s. LUNGS: Clear. Heart: Regular rate and rhythm. S1, S2. No S3. No rub with a systolic murmur. ABDOMEN: Soft, nontender. EXTREMITIES: No edema. LAB DATA: Lab data revealed a BUN and creatinine of 18 and 0.78, potassium 3.7. CK of 1280. IMPRESSION: 1. Rhabdomyolysis, resolved. 2. Status post aortic valve replacement with TAVR, stable. 3. Hypertension. 4. Generalized weakness. RECOMMENDATION: From the cardiac standpoint, he should be able to be transferred to rehab tomorrow and continue his physical therapy. MMODL / IJN: [id number] /
--- NOTE | 2018-05-20 12:24 | P.PN ---
Subjective Progress Note Date: 05/20/18 83-year-old pleasant gentleman was hard of hearing is admitted for rhabdomyolysis secondary to fall. Workup in progress for presyncopal episode. Cardiology following the patient Patient says that he's feeling better but still weak in his legs. He understands he needs physical therapy. He does not complain of any chest pain or racing heart, no cough no shortness of breath, no bowel pain, no nausea and vomiting, 2/3 Transferred from ICU yesterday He says that he still feels weak but much better than before. His part is participating in physical therapy He denies any chest pain racing heart, no cough no shortness of breath Objective - Vital Signs Vital signs: Vital Signs Temp 97.2 F L 05/20/18 08:20 Pulse 70 05/20/18 08:20 Resp 16 05/20/18 08:20 BP 148/70 05/20/18 08:20 Pulse Ox 97 05/20/18 08:20 Intake & Output 05/19/18 05/20/18 05/20/18 18:59 06:59 18:59 Intake Total 400 Output Total 825 850 Balance -425 -850 Weight 76 kg Intake: IV 50 0.9 50 Oral 350 Output: Urine 825 850 Other: Voiding Method Toilet Toilet Urinal Urinal # Voids 1 1 - Exam On exam, alert and oriented x3. HEENT: Conjunctivae normal. eyes normal. NECK: No JVD. No thyroid enlargement. No LNs CARDIOVASCULAR: S1, S2 positive systolic murmur appreciated RESPIRATION: Breath sounds diminished in the bases. No rhonchi or crackles. No bronchial breathing. ABDOMEN: Soft, nontender . No guarding. no masses palpable. No ascites, No hepatosplenomegaly.Bowel sounds heard. LEGS: No edema. no swelling NERVOUS SYSTEM: Cranial N 2-12 grossly normal. Moves all 4 limbs. No focal deficits. No sensory deficit. No signs of cerebellar dysfucntion. Skin: no ulcer no rash Joints: No active swelling. No inflammation. Lymphatic system. No LN neck axilla or groin. - Labs CBC & Chem 7: 05/19/18 04:29 05/20/18 07:05 Labs: Abnormal Lab Results - Last 24 Hours (Table) 05/19/18 05/20/18 Range/Units 18:22 07:05 Creatine Kinase 1280 H* (55-170) U/L Urine Glucose (UA) Trace H (Negative) Urine Blood Trace H (Negative) Urine Mucus Rare H (None) /hpf Assessment and Plan Assessment: - Fall need to rule out the cause - Presyncope/syncope - Rhabdomyolysis secondary to above - Increased troponin levels - Hypertension - Diabetes - Severe aortic stenosis - Leukocytosis which is resolved probably reactive Plan -CPK level 1280. Improved from before -Encouraged to drink a lot of oral fluids -We'll probably go to rehab tomorrow - Continue rest of the medications - DVT and GI prophylaxis - We'll order for lab work in the morning Time with Patient: Greater than 30
[2018-05-20] MEDS ORDERED: ALPRAZolam 0.25 MG TAB PO STA (17:27)
[2018-05-20] MEDS: LISINOPRIL 20 MG TAB PO SCH (20:33)
[2018-05-21 06:00] LABS: HCT 36.1 % (39.0-53.0); HGB 11.7 gm/dL (13.0-17.5); MCH 29.6 pg (25.0-35.0); MCHC 32.4 g/dL (31.0-37.0); MCV 91.4 fL (80.0-100.0); Mean Platelet Volume 6.8; Platelet Count 108 k/uL (150-450); RBC 3.95 m/uL (4.30-5.90); RDW 13.7 % (11.5-15.5); WBC 7.2 k/uL (3.8-10.6)
[2018-05-21 06:12] LABS: Anion Gap 5 mmol/L; Blood Urea Nitrogen 16 mg/dL (9-20); Calcium 9.4 mg/dL (8.4-10.2); Carbon Dioxide 30 mmol/L (22-30); Chloride 106 mmol/L (98-107); Creatine Kinase 837 U/L (55-170); Glucose 100 mg/dL (74-99); Potassium 3.8 mmol/L (3.5-5.1); Sodium 141 mmol/L (137-145)
[2018-05-21 06:18] LABS: Glucose,Whole Blood 97 mg/dL (75-99)
[2018-05-21] MEDS: metFORMIN 500 MG TAB PO SCH ×2 (07:50→17:28)
[2018-05-21] MEDS: PANTOPRAZOLE 40 MG TABLET PO SCH (07:50)
[2018-05-21] MEDS: HYDROCHLOROTHIAZIDE 12.5 MG CAP PO SCH (08:11)
[2018-05-21] MEDS: ASPIRIN 81 MG PO SCH (08:11)
--- NOTE | 2018-05-21 14:41 | P.PN ---
Subjective Progress Note Date: 05/21/18 This is an 83-year-old gentleman who follows regularly with Dr. Talbot in the office. He has past medical history significant for prior pacemaker implantation, mild nonobstructive coronary artery disease, severe aortic stenosis, who underwent TAVR, was initially brought into the hospital after the patient had experienced a fall at home. He was diagnosed with rhabdomyolysis. Patient was seen and examined overall feeling stronger. Denies any chest discomfort, breathing is stable. Working with physical therapy. Arrangements are being made for the patient to be transferred to rehab today. Objective - Vital Signs Vital signs: Vital Signs Temp 97.2 F L 05/21/18 04:00 Pulse 61 05/21/18 12:05 Resp 18 05/21/18 12:05 BP 115/50 05/21/18 12:05 Pulse Ox 100 05/21/18 12:05 Intake & Output 05/20/18 05/21/18 05/21/18 18:59 06:59 18:59 Intake Total 720 220 240 Output Total 250 500 Balance 470 -280 240 Weight 72.5 kg Intake: IV 20 0.9 20 Oral 720 200 240 Output: Urine 250 500 Other: Voiding Method Toilet Toilet Urinal Urinal Urinal Diaper # Voids 1 1 - Exam PHYSICAL EXAMINATION: GENERAL: 83-year-old gentleman in no acute distress at the time of my examination HEENT: Head is atraumatic, normocephalic. Pupils equal, round. Sclera anicteric. Conjunctiva are clear. Mucous membranes of the mouth are moist. Neck is supple. There is no elevated jugular venous pressure.] bruit is heard. HEART EXAMINATION: Heart S1 S2 1 systolic murmur is heard. CHEST EXAMINATION: Lungs are clear to auscultation and precussion. No chest wall tenderness is noted on palpation or with deep breathing. ABDOMEN: Soft, nontender. Bowel sounds are heard. No organomegaly noted. EXTREMITIES: 2+ peripheral pulses with no evidence of peripheral edema and no calf tenderness noted. NEUROLOGIC patient is awake, alert and oriented 3 . . - Labs CBC & Chem 7: 05/21/18 05:33 05/21/18 05:33 Labs: Abnormal Lab Results - Last 24 Hours (Table) 05/21/18 05/21/18 Range/Units 05:33 05:33 RBC 3.95 L (4.30-5.90) m/uL Hgb 11.7 L (13.0-17.5) gm/dL Hct 36.1 L (39.0-53.0) % Plt Count 108 L (150-450) k/uL Glucose 100 H (74-99) mg/dL Creatine Kinase 837 H (55-170) U/L Assessment and Plan Plan: Assessment and plan #1 rhabdomyolysis, resolved #2 history of severe aortic stenosis, status post aortic valve replacement with TAVR #3 hypertension #4 generalized weakness Plan From cardiology's perspective, patient may be transferred to rehab today. We' ll make a follow-up appointment in the office post discharge. DNP note has been reviewed, I agree with a documented findings and plan of care. Patient was seen and examined.
[2018-05-21] MEDS: LISINOPRIL 20 MG TAB PO SCH (19:44)
[2018-05-22 06:17] LABS: Glucose,Whole Blood 106 mg/dL (75-99)
[2018-05-22] MEDS: metFORMIN 500 MG TAB PO SCH ×2 (06:31→17:57)
[2018-05-22] MEDS: PANTOPRAZOLE 40 MG TABLET PO SCH (06:31)
--- NOTE | 2018-05-22 08:52 | PN ---
PROGRESS NOTE Mr. Contreras is an 83-year-old male, status post aortic valve replacement with TAVR, history of hypertension who presented with progressive weakness and evidence of rhabdomyolysis. He is still weak, but feels better. His appetite is stable. He is denying any chest pain. No dizziness. He has been evaluated to undergo transfer to rehab. He continues on aspirin once a day, hydrochlorothiazide 12.5 mg daily, lisinopril 40 mg daily, metformin 500 mg twice a day, and Protonix 40 mg daily. PHYSICAL EXAMINATION: Blood pressure 112/60 with a heart rate in the 60s. LUNGS: Clear. HEART: Regular rate and rhythm, S1, S2. No S3 with systolic murmur, no diastolic murmur, no rub. ABDOMEN: Soft, nontender. EXTREMITIES: No edema. LAB DATA: Revealed BUN and creatinine of 16 and 0.8, potassium 3.8. His CK is down to 837. IMPRESSION: 1. Rhabdomyolysis, resolved. 2. Status post aortic valve replacement with TAVR. 3. Diabetes mellitus. RECOMMENDATION: From the cardiac standpoint, he should be able to be transferred to the rehab unit, continue with his medical regimen. Increase his activity gradually and depending on his progress, further recommendation will be made. MMODL / IJN: [id number] /
[2018-05-22] MEDS: HYDROCHLOROTHIAZIDE 12.5 MG CAP PO SCH (08:57)
[2018-05-22] MEDS: ASPIRIN 81 MG PO SCH (08:57)
--- NOTE | 2018-05-22 14:36 | P.DS ---
Providers Date of admission: 05/17/18 20:26 Expected date of discharge: 05/22/18 Attending physician: Sebastian Flood MD Consults: 05/17/18 20:15 Consult Physician Routine Consulting Provider: Won Roberto Consult Reason/Comments: Elevated troponin Do you want consulting provider notified?: Yes Primary care physician: [place] Hospital Course: Discharge Diagnosis - Presyncope/syncope. Possible dehydration and volume depletion. - Rhabdomyolysis secondary to above - Increased troponin levels. Unlikely ACS. - Hypertension - Diabetes with history of TaVR - Severe aortic stenosis - Leukocytosis which is resolved probably reactive. Resolved Hospital course. 83-year-old pleasant gentleman was hard of hearing is admitted for rhabdomyolysis secondary to fall. Workup in progress for presyncopal episode. Cardiology following the patient Patient says that he's feeling better but still weak in his legs. He understands he needs physical therapy. He does not complain of any chest pain or racing heart, no cough no shortness of breath, no bowel pain, no nausea and vomiting, 2/3 Transferred from ICU yesterday He says that he still feels weak but much better than before. His part is participating in physical therapy He denies any chest pain racing heart, no cough no shortness of breath 2/5 Pt is sittingh on the chair. no c/o Dizziness. Rhabdo improving. able to ambulate. no CP/SOB. tolerating oral diet. no fever/chills. stable for rehab transfer. PHYSICAL EXAMINATION: Patient is lying in the bed comfortably, no acute distress, awake alert and oriented.. HEENT: Normocephalic. Neck is supple. Pupils reactive. Nostrils clear. Oral cavity is moist. Ears reveal no drainage. Neck reveals no JVD, carotid bruits, or thyromegaly. CHEST EXAMINATION: Trachea is central. Symmetrical expansion. Lung felton clear to auscultation and percussion. CARDIAC: Normal S1, S2 with no gallops. No murmurs ABDOMEN: Soft. Bowel sounds normal. No organomegaly. No abdominal bruits. Extremities: reveal no edema. No clubbing or cyanosis Neurologically awake, alert, oriented x3 with well-coordinated movements. No focal deficits noted. Hard of hearing. Vital Signs 05/22/18 05/22/18 05/22/18 08:00 08:30 09:01 Temperature 98.1 F Pulse Rate [ 66 66 73 Pulse Oximetery ] Respiratory 13 13 13 Rate Blood Pressure 112/67 [Right Arm] O2 Sat by Pulse 99 Oximetry 05/22/18 12:00 Temperature 97.8 F Pulse Rate [ 65 Pulse Oximetery ] Respiratory 16 Rate Blood Pressure 115/56 [Right Arm] O2 Sat by Pulse 99 Oximetry Skin: No rash or skin lesions. Healed lesions from fall. Psychiatric: Coperative. Nonsuicidal Musculoskeletal: No joint swelling or deformity. Normal range of motion. Total time taken greater than 35 minutes including 18 minutes for counseling and coordination of care. Patient Condition at Discharge: Stable Plan - Discharge Summary New Discharge Prescriptions: New Aspirin 81 mg PO DAILY chew Continue metFORMIN HCL [Glucophage] 500 mg PO BID Omeprazole [PriLOSEC] 20 mg PO DAILY Lisinopril 40 mg PO HS Hydrochlorothiazide [Hydrodiuril] 12.5 mg PO DAILY Atorvastatin [Lipitor] 20 mg PO HS Discharge Medication List Omeprazole [PriLOSEC] 20 mg PO DAILY 05/10/14 [History] metFORMIN HCL [Glucophage] 500 mg PO BID 05/10/14 [History] Hydrochlorothiazide [Hydrodiuril] 12.5 mg PO DAILY 09/05/16 [History] Lisinopril 40 mg PO HS 09/05/16 [History] Atorvastatin [Lipitor] 20 mg PO HS 05/17/18 [History] Aspirin 81 mg PO DAILY chew 05/22/18 [Rx] Follow up Appointment(s)/Referral(s): Rudy Arce MD [Primary Care Provider] - 1-2 days Discharge Disposition: TRANSFER TO SNF/ECF
[2018-05-22 16:52] LABS: Glucose,Whole Blood 97 mg/dL (75-99)
[2018-05-22] MEDS: LISINOPRIL 20 MG TAB PO SCH (19:56)
--- NOTE | 2018-05-23 01:13 | P.PN ---
Subjective Progress Note Date: 05/22/18 Principal diagnosis: Status post fall Acute syncopal episode Acute rhabdomyolysis 83-year-old pleasant gentleman was hard of hearing is admitted for rhabdomyolysis secondary to fall. Workup in progress for presyncopal episode. Cardiology following the patient Patient says that he's feeling better but still weak in his legs. He understands he needs physical therapy. He does not complain of any chest pain or racing heart, no cough no shortness of breath, no bowel pain, no nausea and vomiting, 2/3 Transferred from ICU yesterday He says that he still feels weak but much better than before. His part is participating in physical therapy He denies any chest pain racing heart, no cough no shortness of breath 2/5 Pt is sittingh on the chair. no c/o Dizziness. Rhabdo improving. able to ambulate. no CP/SOB. tolerating oral diet. no fever/chills. stable for rehab transfer. Current medications reviewed. Objective - Vital Signs Vital signs: Vital Signs Temp 98.0 F 05/22/18 16:00 Pulse 78 05/22/18 16:00 Resp 16 05/22/18 16:00 BP 127/73 05/22/18 16:00 Pulse Ox 99 05/22/18 16:00 Intake & Output 05/21/18 05/22/18 05/22/18 18:59 06:59 18:59 Intake Total 480 450 Output Total 200 200 Balance 280 -200 450 Weight 69.4 kg Intake: IV 10 Invasive Line 2 10 Oral 480 440 Output: Urine 200 200 Other: Voiding Method Urinal Urinal Toilet # Voids 1 1 1 - Labs CBC & Chem 7: 05/21/18 05:33 05/21/18 05:33 Labs: Abnormal Lab Results - Last 24 Hours (Table) 05/22/18 Range/Units 06:15 POC Glucose (mg/dL) 106 H (75-99) mg/dL Assessment and Plan Assessment: - Presyncope/syncope. Possible dehydration and volume depletion. - Rhabdomyolysis secondary to above - Increased troponin levels. Unlikely ACS. - Hypertension - Diabetes - Severe aortic stenosis with history of TaVR - Leukocytosis which is resolved probably reactive. Resolved Plan: Patient is being continued on aspirin. Continue with lisinopril/ hydrochlorothiazide for blood pressure control. Continue with metformin. Repeat CBC and BMP tomorrow. Patient is otherwise stable to be discharged to rehab. Cardiology is following. Time with Patient: Greater than 30
[2018-05-23 06:12] LABS: Glucose,Whole Blood 95 mg/dL (75-99)
[2018-05-23 06:31] LABS: Basophils % (A) 0 %; Eosinophils # (A) 0.2 k/uL (0-0.7); Eosinophils % (A) 3 %; HCT 35.4 % (39.0-53.0); HGB 11.2 gm/dL (13.0-17.5); Lymphocytes # (A) 1.1 k/uL (1.0-4.8); Lymphocytes % (A) 13 %; MCH 28.8 pg (25.0-35.0); MCHC 31.6 g/dL (31.0-37.0); MCV 91.3 fL (80.0-100.0); Mean Platelet Volume 6.5; Monocytes # (A) 0.4 k/uL (0-1.0); Monocytes % (A) 5 %; Neutrophils % (A) 78 %; Platelet Count 136 k/uL (150-450); RBC 3.87 m/uL (4.30-5.90); RDW 13.8 % (11.5-15.5)
[2018-05-23] MEDS: metFORMIN 500 MG TAB PO SCH ×2 (06:42→18:11)
[2018-05-23] MEDS: PANTOPRAZOLE 40 MG TABLET PO SCH (06:42)
[2018-05-23 06:45] LABS: Anion Gap 4 mmol/L; Blood Urea Nitrogen 24 mg/dL (9-20); Calcium 9.5 mg/dL (8.4-10.2); Carbon Dioxide 28 mmol/L (22-30); Chloride 108 mmol/L (98-107); Glucose 100 mg/dL (74-99); Sodium 140 mmol/L (137-145)
--- NOTE | 2018-05-23 09:08 | PN ---
PROGRESS NOTE Mr. Contreras is an 83-year-old male who presented with severe weakness and fall with rhabdomyolysis. He is status post TAVR. He is feeling well this morning. He is feeling a little bit stronger. He is scheduled to be transferred to rehab. He denies any chest pain. No dizziness or palpitation. No nausea. He continued to be on aspirin 81 mg daily, hydrochlorothiazide 12.5 mg daily, lisinopril 40 mg daily, and metformin 500 mg twice a day. PHYSICAL EXAMINATION: Blood pressure 120/60 with the heart rate in the 70s. LUNGS: Clear. HEART: Regular rate and rhythm. S1, S2. No S3 with a systolic murmur at the base. No diastolic murmur. ABDOMEN: Soft, nontender. EXTREMITIES: No edema. LAB DATA: Lab data revealed a BUN and creatinine 24 and 0.8, potassium 4.0, hemoglobin of 11.2. IMPRESSION: 1. Status post fall and weakness with rhabdomyolysis, resolved. 2. Status post TAVR. 3. Diabetes mellitus. RECOMMENDATION: From the cardiac standpoint, he is stable to be transferred to the rehab unit and he will be followed as an outpatient. MMODL / IJN: [id number] /
[2018-05-23] MEDS: ASPIRIN 81 MG PO SCH (09:22)
[2018-05-23] MEDS: HYDROCHLOROTHIAZIDE 12.5 MG CAP PO SCH (09:22)
[2018-05-23 12:03] LABS: Glucose,Whole Blood 177 mg/dL (75-99)
[2018-05-23 17:13] LABS: Glucose,Whole Blood 143 mg/dL (75-99)
[2018-05-23] MEDS: LISINOPRIL 20 MG TAB PO SCH (20:54)
[2018-05-23 21:06] LABS: Glucose,Whole Blood 90 mg/dL (75-99)
--- NOTE | 2018-05-23 22:39 | P.PN ---
Subjective Progress Note Date: 05/23/18 Principal diagnosis: Status post fall Acute syncopal episode Acute rhabdomyolysis 83-year-old pleasant gentleman was hard of hearing is admitted for rhabdomyolysis secondary to fall. Workup in progress for presyncopal episode. Cardiology following the patient Patient says that he's feeling better but still weak in his legs. He understands he needs physical therapy. He does not complain of any chest pain or racing heart, no cough no shortness of breath, no bowel pain, no nausea and vomiting, 2/3 Transferred from ICU yesterday He says that he still feels weak but much better than before. His part is participating in physical therapy He denies any chest pain racing heart, no cough no shortness of breath 2/5 Pt is sitting on the chair. no c/o Dizziness. Rhabdo improving. able to ambulate. no CP/SOB. tolerating oral diet. no fever/chills. stable for rehab transfer. 05/23/2018 Pt is sitting on the chair. no c/o Dizziness. Rhabdo improving. able to ambulate. no CP/SOB. tolerating oral diet. no fever/chills. stable for rehab transfer. Currently awaiting authorization. Current medications reviewed. Objective - Vital Signs Vital signs: Vital Signs Temp 98.0 F 05/23/18 20:00 Pulse 60 05/23/18 20:00 Resp 18 05/23/18 20:00 BP 107/57 05/23/18 20:00 Pulse Ox 99 05/23/18 20:00 Intake & Output 05/23/18 05/23/18 05/24/18 06:59 18:59 06:59 Intake Total 480 Balance 480 Weight 69.7 kg 69.7 kg Intake: Oral 480 Other: Voiding Method Toilet Urinal Toilet Urinal # Voids 0 1 - Exam PHYSICAL EXAMINATION: Patient is lying in the bed comfortably, no acute distress, awake alert and oriented. Hard of hearing. HEENT: Normocephalic. Neck is supple. Pupils reactive. Nostrils clear. Oral cavity is moist. Ears reveal no drainage. Neck reveals no JVD, carotid bruits, or thyromegaly. CHEST EXAMINATION: Trachea is central. Symmetrical expansion. Lung felton clear to auscultation and percussion. CARDIAC: Normal S1, S2 with no gallops. No murmurs ABDOMEN: Soft. Bowel sounds normal. No organomegaly. No abdominal bruits. Extremities: reveal no edema. No clubbing or cyanosis Neurologically awake, alert, oriented x3 with well-coordinated movements. No focal deficits noted Skin: No rash or skin lesions. Psychiatric: Coperative. Nonsuicidal Musculoskeletal: No joint swelling or deformity. Normal range of motion. - Labs CBC & Chem 7: 05/23/18 06:03 05/23/18 06:03 Labs: Abnormal Lab Results - Last 24 Hours (Table) 05/23/18 05/23/18 05/23/18 Range/Units 06:03 06:03 11:50 RBC 3.87 L (4.30-5.90) m/uL Hgb 11.2 L (13.0-17.5) gm/dL Hct 35.4 L (39.0-53.0) % Plt Count 136 L (150-450) k/uL Chloride 108 H (98-107) mmol/L BUN 24 H (9-20) mg/dL Glucose 100 H (74-99) mg/dL POC Glucose (mg/dL) 177 H (75-99) mg/dL 05/23/18 Range/Units 16:58 RBC (4.30-5.90) m/uL Hgb (13.0-17.5) gm/dL Hct (39.0-53.0) % Plt Count (150-450) k/uL Chloride (98-107) mmol/L BUN (9-20) mg/dL Glucose (74-99) mg/dL POC Glucose (mg/dL) 143 H (75-99) mg/dL Assessment and Plan Assessment: - Presyncope/syncope. Possible dehydration and volume depletion. - Rhabdomyolysis secondary to above - Increased troponin levels. Unlikely ACS. - Hypertension - Diabetes - Severe aortic stenosis with history of TaVR - Leukocytosis which is resolved probably reactive. Resolved Plan: Patient is being continued on aspirin. Continue with lisinopril/ hydrochlorothiazide for blood pressure control. Continue with metformin. Repeat CBC and BMP tomorrow. Patient is otherwise stable to be discharged to rehab. Cardiology is following. Time with Patient: Greater than 30
[2018-05-24 05:57] LABS: Glucose,Whole Blood 97 mg/dL (75-99)
[2018-05-24] MEDS: PANTOPRAZOLE 40 MG TABLET PO SCH (06:40)
[2018-05-24] MEDS: metFORMIN 500 MG TAB PO SCH ×2 (06:40→20:36)
[2018-05-24] MEDS: HYDROCHLOROTHIAZIDE 12.5 MG CAP PO SCH (08:53)
[2018-05-24] MEDS: ASPIRIN 81 MG PO SCH (08:53)
--- NOTE | 2018-05-24 09:39 | PN ---
PROGRESS NOTE Mr. Contreras is an 83-year-old male with history of aortic stenosis status post TAVR, who presented with a fall and rhabdomyolysis with generalized weakness. He is feeling better. He is ambulating but continues to be quite weak in his ambulation. His transfer to rehab has been held by his insurance company, we are awaiting the final decision. Otherwise, he has no symptoms of chest pain. No dizziness or palpitation. He continues to be on aspirin once a day, hydrochlorothiazide 12.5 mg daily, lisinopril 40 mg daily, metformin 5 mg twice a day and Protonix. PHYSICAL EXAMINATION: Blood pressure 05/16 over seen 60 with a heart rate in the 70s. LUNGS: Clear. HEART: Regular rate and rhythm, S1, S2 with systolic murmur, no diastolic murmur. No rub. ABDOMEN: Soft, nontender. EXTREMITIES: No edema. IMPRESSION: 1. Status post TAVR stable. 2. Generalized weakness with recent fall and rhabdomyolysis. 3. Diabetes mellitus. RECOMMENDATION: From the cardiac standpoint, I am hoping that he will be transferred to rehab today. We will see him on as needed basis. Please feel free to call us for any question. MMODL / IJN: [id number] /
[2018-05-24] MEDS: LISINOPRIL 20 MG TAB PO SCH (20:36)
[2018-05-25 05:58] LABS: Glucose,Whole Blood 112 mg/dL (75-99)
[2018-05-25] MEDS: PANTOPRAZOLE 40 MG TABLET PO SCH (06:43)
[2018-05-25] MEDS: metFORMIN 500 MG TAB PO SCH ×2 (06:43→16:34)
[2018-05-25] MEDS: HYDROCHLOROTHIAZIDE 12.5 MG CAP PO SCH (08:54)
[2018-05-25] MEDS: ASPIRIN 81 MG PO SCH (08:55)
--- NOTE | 2018-05-25 14:31 | P.PN ---
Subjective Progress Note Date: 05/25/18 83-year-old pleasant gentleman was hard of hearing is admitted for rhabdomyolysis secondary to fall. Workup in progress for presyncopal episode. Cardiology following the patient Patient says that he's feeling better but still weak in his legs. He understands he needs physical therapy. He does not complain of any chest pain or racing heart, no cough no shortness of breath, no bowel pain, no nausea and vomiting, Patient says that he is doing better today. He is still feeling really weak. He cannot get up out of the chair or the bed without any help. She will while walking he needs assistance as he is a fall risk. Objective - Vital Signs Vital signs: Vital Signs Temp 97.1 F L 05/25/18 12:29 Pulse 80 05/25/18 12:29 Resp 20 05/25/18 12:29 BP 133/64 05/25/18 12:29 Pulse Ox 97 05/25/18 07:53 Intake & Output 05/24/18 05/25/18 05/25/18 18:59 06:59 18:59 Intake Total 480 480 Output Total 600 550 Balance -120 -550 480 Weight 67.7 kg Intake: Oral 480 480 Output: Urine 600 550 Other: Voiding Method Toilet Toilet Urinal Urinal # Voids 1 1 # Bowel Movements 1 - Exam On exam, alert and oriented x3. HEENT: Conjunctivae normal. eyes normal. NECK: No JVD. No thyroid enlargement. No LNs CARDIOVASCULAR: S1, S2 positive systolic murmur appreciated RESPIRATION: Breath sounds diminished in the bases. No rhonchi or crackles. No bronchial breathing. ABDOMEN: Soft, nontender . No guarding. no masses palpable. No ascites, No hepatosplenomegaly.Bowel sounds heard. LEGS: No edema. no swelling NERVOUS SYSTEM: Cranial N 2-12 grossly normal. Moves all 4 limbs. No focal deficits. No sensory deficit. No signs of cerebellar dysfucntion. Skin: no ulcer no rash Joints: No active swelling. No inflammation. Lymphatic system. No LN neck axilla or groin. - Labs CBC & Chem 7: 05/23/18 06:03 05/23/18 06:03 Labs: Abnormal Lab Results - Last 24 Hours (Table) 05/25/18 Range/Units 05:57 POC Glucose (mg/dL) 112 H (75-99) mg/dL Assessment and Plan Assessment: - Fall need to rule out the cause - Presyncope/syncope - Rhabdomyolysis secondary to above - Increased troponin levels - Hypertension - Diabetes - Severe aortic stenosis - Leukocytosis which is resolved probably reactive Plan - Patient's CPK are back to almost baseline - Patient will need PTOT as he stays alone at home. He needs assistance and help getting up out of the bed and out of the chair. He uses a walker to walk but he's afraid as it might slip away and he might fall again. I was there when he was walking and he is a fall risk, he is wobbly and requires 1 person assist. - He is awaiting insurance approval for rehab placement - Risk of sending the patient back home as he might fall again and be readmitted again for something more serious. - We will continue to follow the patient and make appropriate decisions Time with Patient: Greater than 30
[2018-05-25 16:34] LABS: Glucose,Whole Blood 99 mg/dL (75-99)
[2018-05-25] MEDS: LISINOPRIL 20 MG TAB PO SCH (23:25)
[2018-05-26 07:35] LABS: Glucose,Whole Blood 86 mg/dL (75-99)
[2018-05-26] MEDS: ASPIRIN 81 MG PO SCH (08:57)
[2018-05-26] MEDS: PANTOPRAZOLE 40 MG TABLET PO SCH (08:58)
[2018-05-26] MEDS: metFORMIN 500 MG TAB PO SCH ×2 (08:58→17:55)
[2018-05-26] MEDS: HYDROCHLOROTHIAZIDE 12.5 MG CAP PO SCH (10:16)
[2018-05-26 11:31] LABS: Glucose,Whole Blood 109 mg/dL (75-99)
--- NOTE | 2018-05-26 15:47 | P.PN ---
Subjective 83-year-old pleasant gentleman was hard of hearing is admitted for rhabdomyolysis secondary to fall. Workup in progress for presyncopal episode. Cardiology following the patient Patient says that he's feeling better but still weak in his legs. He understands he needs physical therapy. He does not complain of any chest pain or racing heart, no cough no shortness of breath, no bowel pain, no nausea and vomiting, Patient says that he is doing better today. He is still feeling really weak. He cannot get up out of the chair or the bed without any help. Whenever he walks, he is wobbly Objective - Vital Signs Vital signs: Vital Signs Temp 97.5 F L 05/26/18 12:36 Pulse 59 L 05/26/18 12:36 Resp 17 05/26/18 12:36 BP 171/77 05/26/18 12:36 Pulse Ox 97 05/26/18 12:36 Intake & Output 05/25/18 05/26/18 05/26/18 18:59 06:59 18:59 Intake Total 840 Output Total 1400 Balance 840 -1400 Weight 70.5 kg Intake: Oral 840 Output: Urine 1400 Other: Voiding Method Toilet Urinal Urinal # Voids 1 3 3 # Bowel Movements 1 1 - Exam On exam, alert and oriented x3. HEENT: Conjunctivae normal. eyes normal. NECK: No JVD. No thyroid enlargement. No LNs CARDIOVASCULAR: S1, S2 positive systolic murmur appreciated RESPIRATION: Breath sounds diminished in the bases. No rhonchi or crackles. No bronchial breathing. ABDOMEN: Soft, nontender . No guarding. no masses palpable. No ascites, No hepatosplenomegaly.Bowel sounds heard. LEGS: No edema. no swelling NERVOUS SYSTEM: Cranial N 2-12 grossly normal. Moves all 4 limbs. No focal deficits. No sensory deficit. No signs of cerebellar dysfucntion. Skin: no ulcer no rash Joints: No active swelling. No inflammation. Lymphatic system. No LN neck axilla or groin. - Labs CBC & Chem 7: 05/23/18 06:03 05/23/18 06:03 Labs: Abnormal Lab Results - Last 24 Hours (Table) 05/26/18 Range/Units 11:29 POC Glucose (mg/dL) 109 H (75-99) mg/dL Assessment and Plan Assessment: - Fall need to rule out the cause - Presyncope/syncope - Rhabdomyolysis secondary to above - Increased troponin levels - Hypertension - Diabetes - Severe aortic stenosis - Leukocytosis which is resolved probably reactive Plan - Patient's CPK are back to almost baseline - Still needs assistance to get up and walk. He also needs 1 person assist while walking as he is a fall risk - Awaiting transfer to rehab facility. - Very high risk of fall if he goes home
[2018-05-26 16:48] LABS: Glucose,Whole Blood 145 mg/dL (75-99)
[2018-05-26 19:46] LABS: Glucose,Whole Blood 103 mg/dL (75-99)
[2018-05-26] MEDS: LISINOPRIL 20 MG TAB PO SCH (21:01)
[2018-05-27 07:09] LABS: Glucose,Whole Blood 95 mg/dL (75-99)
[2018-05-27] MEDS: PANTOPRAZOLE 40 MG TABLET PO SCH (09:44)
[2018-05-27] MEDS: ASPIRIN 81 MG PO SCH (09:44)
[2018-05-27] MEDS: metFORMIN 500 MG TAB PO SCH ×2 (09:44→17:06)
[2018-05-27] MEDS: HYDROCHLOROTHIAZIDE 12.5 MG CAP PO SCH (09:44)
[2018-05-27 11:10] LABS: Glucose,Whole Blood 133 mg/dL (75-99)
--- NOTE | 2018-05-27 12:22 | P.PN ---
Subjective 83-year-old pleasant gentleman was hard of hearing is admitted for rhabdomyolysis secondary to fall. Workup in progress for presyncopal episode. Cardiology following the patient Patient says that he's feeling better but still weak in his legs. He understands he needs physical therapy. He does not complain of any chest pain or racing heart, no cough no shortness of breath, no bowel pain, no nausea and vomiting, Patient says that he is doing better today. He is still feeling really weak. He cannot get up out of the chair or the bed without any help. Whenever he walks, he is wobbly 05/27/2018 Patient says that he is doing good Still awaiting insurance approval for transfer Objective - Vital Signs Vital signs: Vital Signs Temp 97.7 F 05/27/18 06:03 Pulse 65 05/27/18 06:03 Resp 18 05/27/18 06:03 BP 149/81 05/27/18 06:03 Pulse Ox 99 05/27/18 06:03 Intake & Output 05/26/18 05/27/18 05/27/18 18:59 06:59 18:59 Intake Total 480 Output Total 650 Balance -170 Intake: Oral 480 Output: Urine 650 Other: Voiding Method Urinal Urinal Urinal # Voids 3 3 - Exam On exam, alert and oriented x3. HEENT: Conjunctivae normal. eyes normal. NECK: No JVD. No thyroid enlargement. No LNs CARDIOVASCULAR: S1, S2 positive systolic murmur appreciated RESPIRATION: Breath sounds diminished in the bases. No rhonchi or crackles. No bronchial breathing. ABDOMEN: Soft, nontender . No guarding. no masses palpable. No ascites, No hepatosplenomegaly.Bowel sounds heard. LEGS: No edema. no swelling NERVOUS SYSTEM: Cranial N 2-12 grossly normal. Moves all 4 limbs. No focal deficits. No sensory deficit. No signs of cerebellar dysfucntion. Skin: no ulcer no rash Joints: No active swelling. No inflammation. Lymphatic system. No LN neck axilla or groin. - Labs CBC & Chem 7: 05/23/18 06:03 05/23/18 06:03 Labs: Abnormal Lab Results - Last 24 Hours (Table) 05/26/18 05/26/18 05/27/18 Range/Units 16:47 19:44 11:08 POC Glucose (mg/dL) 145 H 103 H 133 H (75-99) mg/dL Assessment and Plan Assessment: - Fall need to rule out the cause - Presyncope/syncope - Rhabdomyolysis secondary to above - Increased troponin levels - Hypertension - Diabetes - Severe aortic stenosis - Leukocytosis which is resolved probably reactive Plan - Patient awaiting insurance approval for transfeR - Probably go to rehab - We'll continue to monitor to the
[2018-05-27] MEDS: LISINOPRIL 20 MG TAB PO SCH (21:34)
[2018-05-28 07:22] LABS: Glucose,Whole Blood 92 mg/dL (75-99)
[2018-05-28] MEDS: metFORMIN 500 MG TAB PO SCH ×2 (09:28→18:29)
[2018-05-28] MEDS: PANTOPRAZOLE 40 MG TABLET PO SCH (09:28)
[2018-05-28] MEDS: ASPIRIN 81 MG PO SCH (09:29)
[2018-05-28] MEDS: HYDROCHLOROTHIAZIDE 12.5 MG CAP PO SCH (09:29)
[2018-05-28 11:12] LABS: Glucose,Whole Blood 90 mg/dL (75-99)
--- NOTE | 2018-05-28 21:57 | P.PN ---
Subjective this is a pleasant 83 yo M with pmh of aortic stenosis ,s/p TAVR. who present with syncope , fall and rhabdomyolysis. he was treated with hydration , creatine kinase is trending down. pt also had elevated troponin, pt was evaluated by pest control chemical technician. Echo: normal function biopresthetic valve. EF 55-60% . moderate LVH. pt with generalized weakness , and he needs rehab upon discharge pending insurance approval . pt is diabetic with sugar is controlled. wbc 9K. Objective - Vital Signs Vital signs: Vital Signs Temp 97.7 F 05/28/18 05:00 Pulse 70 05/28/18 12:49 Resp 16 05/28/18 12:49 BP 118/60 05/28/18 12:49 Pulse Ox 99 05/28/18 12:49 Intake & Output 05/28/18 05/28/18 05/29/18 06:59 18:59 06:59 Other: Voiding Method Urinal Urinal # Voids 3 6 # Bowel Movements 1 - Exam -GENERAL: The patient is alert and oriented x3, not in any acute distress. generally weak HEENT: Pupils are round and equally reacting to light. EOMI. No scleral icterus. No conjunctival pallor. Normocephalic, atraumatic. No pharyngeal erythema. No thyromegaly. CARDIOVASCULAR: S1 and S2 present. No murmurs, rubs, or gallops. PULMONARY: Chest is clear to auscultation, no wheezing or crackles. ABDOMEN: Soft, nontender, nondistended, normoactive bowel sounds. No palpable organomegaly. MUSCULOSKELETAL: No joint swelling or deformity. EXTREMITIES: No cyanosis, clubbing, or pedal edema. NEUROLOGICAL: Gross neurological examination did not reveal any focal deficits. SKIN: No rashes. - Labs CBC & Chem 7: 05/23/18 06:03 05/23/18 06:03 Assessment and Plan Assessment: -general weakness - Fall - Presyncope/syncope - Rhabdomyolysis secondary to above, improved - Increased troponin levels - Hypertension - Diabetes - Severe aortic stenosis, s/p TAVR - Leukocytosis , resolved Plan: Labs and medication were reviewed.. Continue same treatment. Continue with symptomatic treatment. Resume home medication. Monitor lytes and vitals. DVT and GI prophylaxis. Further recommendations of the clinical course of the patient DVT prophylaxis: Subcutaneous heparin GI Prophylaxis: Pepcid prognosis is guarded
[2018-05-28 22:17] LABS: Calcium 9.6 mg/dL (8.4-10.2); Potassium 4.6 mmol/L (3.5-5.1)
[2018-05-28 22:18] LABS: Basophils % (A) 0 %; Eosinophils # (A) 0.2 k/uL (0-0.7); Eosinophils % (A) 2 %; HGB 11.5 gm/dL (13.0-17.5); Lymphocytes # (A) 1.4 k/uL (1.0-4.8); Lymphocytes % (A) 16 %; MCH 29.7 pg (25.0-35.0); MCHC 32.1 g/dL (31.0-37.0); MCV 92.5 fL (80.0-100.0); Mean Platelet Volume 7.3; Monocytes # (A) 0.4 k/uL (0-1.0); Monocytes % (A) 5 %; Neutrophils # (A) 6.3 k/uL (1.3-7.7); Neutrophils % (A) 74 %; Platelet Count 157 k/uL (150-450); RBC 3.89 m/uL (4.30-5.90); RDW 14.2 % (11.5-15.5); WBC 8.5 k/uL (3.8-10.6)
[2018-05-29] MEDS: LISINOPRIL 20 MG TAB PO SCH ×2 (00:13→20:36)
[2018-05-29] MEDS: HEPARIN SODIUM,PORCINE 5,000 UNIT/ML 1 ML VIAL SQ SCH ×3 (00:13→20:37)
[2018-05-29 07:20] LABS: Glucose,Whole Blood 96 mg/dL (75-99)
[2018-05-29] MEDS: ASPIRIN 81 MG PO SCH (08:09)
[2018-05-29] MEDS: PANTOPRAZOLE 40 MG TABLET PO SCH (08:09)
[2018-05-29] MEDS: metFORMIN 500 MG TAB PO SCH ×2 (08:09→17:30)
[2018-05-29] MEDS: HYDROCHLOROTHIAZIDE 12.5 MG CAP PO SCH (08:10)
[2018-05-29] MEDS ORDERED: FAMOTIDINE 20 MG/2 ML VIAL IV SCH (09:00)
--- NOTE | 2018-05-29 10:22 | XR ---
EXAMINATION TYPE: XR chest 1V DATE OF EXAM: 05/29/2018 COMPARISON: Prior chest x-ray 05/17/2017, 05/10/2014, CT 8 12/09/2014 HISTORY: Elevated troponin, abnormal chest x-ray TECHNIQUE: Single frontal view of the chest is obtained. FINDINGS: Pacemaker is present in the left pectoral region, there are leads in the right atrium and v entricle. Stent is present at the level of the aortic valve. Biapical pleural thickening is present. Scattered nodular densities are present in the right upper lobe as on prior. Aorta is dense. There is no focal air space opacity, pleural effusion, or pneumothorax seen. The cardiac silhouette size is within normal limits. The osseous structures are intact, there is arthropathy in the left shoulder, patient is rotated. IMPRESSION: No acute process. Old granulomatous disease.
--- NOTE | 2018-05-29 18:46 | P.PN ---
Subjective this is a pleasant 83 yo M with pmh of aortic stenosis ,s/p TAVR. who present with syncope , fall and rhabdomyolysis. he was treated with hydration , creatine kinase is trending down. pt also had elevated troponin, pt was evaluated by interventional radiologist. Echo: normal function biopresthetic valve. EF 55-60% . moderate LVH. pt with generalized weakness , and he needs rehab upon discharge pending insurance approval . pt is diabetic with sugar is controlled. wbc 9K. 05/29/2018 Patient remains in the general medical floor, he denies chest pain or dyspnea or change in urine or bowel habits. Patient is tolerating diet well. Patient has no more chest pain, no more dizziness or syncope. He feels generally weak although this is slightly improving which could be related to his rhabdomyolysis. However repeat labs shows stable CBC and BMP. Sugar is controlled. Creatine kinase came down down to 44. Hemoglobin is stable. Echo shows normal functioning bioprosthetic valve with ejection fraction 55-60% with moderate LVH. Patient is medically stable for discharge pending insurance approval. Objective - Vital Signs Vital signs: Vital Signs Temp 98.7 F 05/29/18 12:30 Pulse 78 05/29/18 12:30 Resp 16 05/29/18 12:30 BP 105/58 05/29/18 12:30 Pulse Ox 98 05/29/18 12:30 Intake & Output 05/28/18 05/29/18 05/29/18 18:59 06:59 18:59 Intake Total 1440 Output Total 1450 100 Balance -10 -100 Intake: Oral 1440 Output: Urine 1450 100 Other: Voiding Method Urinal Urinal Urinal # Voids 6 1 # Bowel Movements 1 1 - Exam -GENERAL: The patient is alert and oriented x3, not in any acute distress. generally weak HEENT: Pupils are round and equally reacting to light. EOMI. No scleral icterus. No conjunctival pallor. Normocephalic, atraumatic. No pharyngeal erythema. No thyromegaly. CARDIOVASCULAR: S1 and S2 present. No murmurs, rubs, or gallops. PULMONARY: Chest is clear to auscultation, no wheezing or crackles. ABDOMEN: Soft, nontender, nondistended, normoactive bowel sounds. No palpable organomegaly. MUSCULOSKELETAL: No joint swelling or deformity. EXTREMITIES: No cyanosis, clubbing, or pedal edema. NEUROLOGICAL: Gross neurological examination did not reveal any focal deficits. SKIN: No rashes. - Labs CBC & Chem 7: 05/28/18 21:53 05/28/18 21:53 Labs: Abnormal Lab Results - Last 24 Hours (Table) 05/28/18 05/28/18 Range/Units 21:53 21:53 RBC 3.89 L (4.30-5.90) m/uL Hgb 11.5 L (13.0-17.5) gm/dL Hct 36.0 L (39.0-53.0) % BUN 39 H (9-20) mg/dL Glucose 101 H (74-99) mg/dL Creatine Kinase 44 L (55-170) U/L Assessment and Plan Assessment: -general weakness - Fall - Presyncope/syncope - Rhabdomyolysis secondary to above, improved - Increased troponin levels - Hypertension - Diabetes - Severe aortic stenosis, s/p TAVR - Leukocytosis , resolved Plan: Labs and medication were reviewed.. Continue same treatment. Continue with symptomatic treatment. Resume home medication. Monitor lytes and vitals. DVT and GI prophylaxis. Further recommendations of the clinical course of the patient DVT prophylaxis: Subcutaneous heparin GI Prophylaxis: Pepcid prognosis is guarded
[2018-05-29] MEDS: FAMOTIDINE 20 MG TAB PO SCH (20:36)
[2018-05-30 07:13] LABS: Glucose,Whole Blood 100 mg/dL (75-99)
[2018-05-30] MEDS: PANTOPRAZOLE 40 MG TABLET PO SCH (09:36)
[2018-05-30] MEDS: metFORMIN 500 MG TAB PO SCH ×2 (09:36→17:26)
[2018-05-30] MEDS: ASPIRIN 81 MG PO SCH (09:37)
[2018-05-30] MEDS: HYDROCHLOROTHIAZIDE 12.5 MG CAP PO SCH (09:37)
[2018-05-30] MEDS: HEPARIN SODIUM,PORCINE 5,000 UNIT/ML 1 ML VIAL SQ SCH ×2 (09:37→21:05)
[2018-05-30] MEDS: FAMOTIDINE 20 MG TAB PO SCH ×2 (09:37→21:03)
--- NOTE | 2018-05-30 11:26 | P.PN ---
Subjective this is a pleasant 83 yo M with pmh of aortic stenosis ,s/p TAVR. who present with syncope , fall and rhabdomyolysis. he was treated with hydration , creatine kinase is trending down. pt also had elevated troponin, pt was evaluated by getter operator. Echo: normal function biopresthetic valve. EF 55-60% . moderate LVH. pt with generalized weakness , and he needs rehab upon discharge pending insurance approval . pt is diabetic with sugar is controlled. wbc 9K. 05/29/2018 Patient remains in the general medical floor, he denies chest pain or dyspnea or change in urine or bowel habits. Patient is tolerating diet well. Patient has no more chest pain, no more dizziness or syncope. He feels generally weak although this is slightly improving which could be related to his rhabdomyolysis. However repeat labs shows stable CBC and BMP. Sugar is controlled. Creatine kinase came down down to 44. Hemoglobin is stable. Echo shows normal functioning bioprosthetic valve with ejection fraction 55-60% with moderate LVH. Patient is medically stable for discharge pending insurance approval. 05/30/2018 pt is clinically the same , no chest pain or dyspnea. No abdominal pain. Tolerating diet well. Patient is still waiting authorization from his insurance to rehab for his generalized weakness.no more syncope and rhabdomyolysis is improving. Objective - Vital Signs Vital signs: Vital Signs Temp 97.2 F L 05/30/18 07:16 Pulse 98 05/30/18 07:16 Resp 16 05/30/18 07:16 BP 111/64 05/30/18 07:16 Pulse Ox 96 05/30/18 08:02 Intake & Output 05/29/18 05/30/18 05/30/18 18:59 06:59 18:59 Output Total 100 Balance -100 Output: Urine 100 Other: Voiding Method Urinal Urinal Toilet # Voids 1 # Bowel Movements 1 - Exam -GENERAL: The patient is alert and oriented x3, not in any acute distress. generally weak HEENT: Pupils are round and equally reacting to light. EOMI. No scleral icterus. No conjunctival pallor. Normocephalic, atraumatic. No pharyngeal erythema. No thyromegaly. CARDIOVASCULAR: S1 and S2 present. No murmurs, rubs, or gallops. PULMONARY: Chest is clear to auscultation, no wheezing or crackles. ABDOMEN: Soft, nontender, nondistended, normoactive bowel sounds. No palpable organomegaly. MUSCULOSKELETAL: No joint swelling or deformity. EXTREMITIES: No cyanosis, clubbing, or pedal edema. NEUROLOGICAL: Gross neurological examination did not reveal any focal deficits. SKIN: No rashes. - Labs CBC & Chem 7: 05/28/18 21:53 05/28/18 21:53 Labs: Abnormal Lab Results - Last 24 Hours (Table) 05/30/18 Range/Units 07:12 POC Glucose (mg/dL) 100 H (75-99) mg/dL Assessment and Plan Assessment: -general weakness - Fall - Presyncope/syncope - Rhabdomyolysis secondary to above, improved - Increased troponin levels - Hypertension - Diabetes - Severe aortic stenosis, s/p TAVR - Leukocytosis , resolved Plan: Labs and medication were reviewed.. Continue same treatment. Continue with symptomatic treatment. Resume home medication. Monitor lytes and vitals. DVT and GI prophylaxis. Further recommendations of the clinical course of the patient DVT prophylaxis: Subcutaneous heparin GI Prophylaxis: Pepcid prognosis is guarded
[2018-05-30 14:52] VITALS: BMI 19.9
[2018-05-30] MEDS: LISINOPRIL 20 MG TAB PO SCH (21:04)
[2018-05-31 07:00] LABS: Glucose,Whole Blood 95 mg/dL (75-99)
--- NOTE | 2018-05-31 07:55 | P.PN ---
Subjective this is a pleasant 83 yo M with pmh of aortic stenosis ,s/p TAVR. who present with syncope , fall and rhabdomyolysis. he was treated with hydration , creatine kinase is trending down. pt also had elevated troponin, pt was evaluated by cherry dipper. Echo: normal function biopresthetic valve. EF 55-60% . moderate LVH. pt with generalized weakness , and he needs rehab upon discharge pending insurance approval . pt is diabetic with sugar is controlled. wbc 9K. 05/29/2018 Patient remains in the general medical floor, he denies chest pain or dyspnea or change in urine or bowel habits. Patient is tolerating diet well. Patient has no more chest pain, no more dizziness or syncope. He feels generally weak although this is slightly improving which could be related to his rhabdomyolysis. However repeat labs shows stable CBC and BMP. Sugar is controlled. Creatine kinase came down down to 44. Hemoglobin is stable. Echo shows normal functioning bioprosthetic valve with ejection fraction 55-60% with moderate LVH. Patient is medically stable for discharge pending insurance approval. 05/30/2018 pt is clinically the same , no chest pain or dyspnea. No abdominal pain. Tolerating diet well. Patient is still waiting authorization from his insurance to rehab for his generalized weakness.no more syncope and rhabdomyolysis is improving. 05/31/2018 No change in the patient's clinical condition. No pain in his chest or belly. No headache. No dyspnea. He is eating diet well. Pending authorization by his insurance for rehab placement. Objective - Vital Signs Vital signs: Vital Signs Temp 96.9 F L 05/31/18 07:12 Pulse 60 05/31/18 07:12 Resp 15 05/31/18 07:12 BP 121/71 05/31/18 07:12 Pulse Ox 98 05/31/18 07:12 Intake & Output 05/30/18 05/31/18 05/31/18 18:59 06:59 18:59 Output Total 100 400 Balance -100 -400 Weight 70.5 kg Output: Urine 100 400 Other: Voiding Method Toilet Urinal # Voids 3 - Exam -GENERAL: The patient is alert and oriented x3, not in any acute distress. generally weak HEENT: Pupils are round and equally reacting to light. EOMI. No scleral icterus. No conjunctival pallor. Normocephalic, atraumatic. No pharyngeal erythema. No thyromegaly. CARDIOVASCULAR: S1 and S2 present. No murmurs, rubs, or gallops. PULMONARY: Chest is clear to auscultation, no wheezing or crackles. ABDOMEN: Soft, nontender, nondistended, normoactive bowel sounds. No palpable organomegaly. MUSCULOSKELETAL: No joint swelling or deformity. EXTREMITIES: No cyanosis, clubbing, or pedal edema. NEUROLOGICAL: Gross neurological examination did not reveal any focal deficits. SKIN: No rashes. - Labs CBC & Chem 7: 05/28/18 21:53 05/28/18 21:53 Assessment and Plan Assessment: -general weakness - Fall - Presyncope/syncope - Rhabdomyolysis secondary to above, improved - Increased troponin levels - Hypertension - Diabetes - Severe aortic stenosis, s/p TAVR - Leukocytosis , resolved Plan: Labs and medication were reviewed.. Continue same treatment. Continue with symptomatic treatment. Resume home medication. Monitor lytes and vitals. DVT and GI prophylaxis. Further recommendations of the clinical course of the patient DVT prophylaxis: Subcutaneous heparin GI Prophylaxis: Pepcid prognosis is guarded
[2018-05-31] MEDS: PANTOPRAZOLE 40 MG TABLET PO SCH (08:58)
[2018-05-31] MEDS: ASPIRIN 81 MG PO SCH (08:58)
[2018-05-31] MEDS: metFORMIN 500 MG TAB PO SCH (08:58)
[2018-05-31] MEDS: FAMOTIDINE 20 MG TAB PO SCH (08:59)
[2018-05-31] MEDS: HYDROCHLOROTHIAZIDE 12.5 MG CAP PO SCH (08:59)
[2018-05-31] MEDS: HEPARIN SODIUM,PORCINE 5,000 UNIT/ML 1 ML VIAL SQ SCH (08:59)
[2018-05-31 12:03] VITALS: BP 108/51; PULSE 60; RESP 15; TEMP 98.1
[2018-05-31 22:12] LABS: Hemoglobin A1C 5.9 % (4.0-6.0)
--- NOTE | 2018-06-01 10:21 | P.DS ---
Providers Date of admission: 05/17/18 20:26 Attending physician: Sebastian Flood MD Consults: 05/17/18 20:15 Consult Physician Routine Consulting Provider: Won Roberto Consult Reason/Comments: Elevated troponin Do you want consulting provider notified?: Yes Primary care physician: Rudy Arce [facility] Course: Discharge Diagnosis -s/p fall - Presyncope/syncope. Possible dehydration and volume depletion. - Rhabdomyolysis secondary to above - generalized weakness - Increased troponin levels. Unlikely ACS. - Hypertension - Diabetes with history of TaVR - Severe aortic stenosis - Leukocytosis probably reactive. Resolved Hospital course. 83-year-old pleasant gentleman was hard of hearing is admitted for rhabdomyolysis secondary to fall. Workup in progress for presyncopal episode. Cardiology evaluated the patient. Patient says that he's feeling better but still weak in his legs. He understands he needs physical therapy. He does not complain of any chest pain or racing heart, no cough no shortness of breath, no bowel pain, no nausea and vomiting, patient was cleared by cardiology for discharge Patient was found stable and can be discharged to [facility] and guarded prognosis. However he needs follow-up as an outpatient Gen: patient is a AAOx3, no distress. Generally weak CVS: S1-S2, RRR, no murmur Lungs: B/L CTA, no wheezing Abdomen: soft, no distention, no tenderness, positive bowel sounds Extremity: no leg edema or induration Time spent more than 35 minutes Patient Condition at Discharge: Stable Plan - Discharge Summary New Discharge Prescriptions: New Aspirin 81 mg PO DAILY chew Acetaminophen Tab [Tylenol] 325 mg PO Q6HR PRN tab PRN Reason: Mild Pain Or Fever > 100.5 Heparin Sodium,Porcine [Heparin Sodium] 5,000 unit SQ Q12HR vial Continue metFORMIN HCL [Glucophage] 500 mg PO BID Omeprazole [PriLOSEC] 20 mg PO DAILY Lisinopril 40 mg PO HS Hydrochlorothiazide [Hydrodiuril] 12.5 mg PO DAILY Atorvastatin [Lipitor] 20 mg PO HS Discharge Medication List Omeprazole [PriLOSEC] 20 mg PO DAILY 05/10/14 [History] metFORMIN HCL [Glucophage] 500 mg PO BID 05/10/14 [History] Hydrochlorothiazide [Hydrodiuril] 12.5 mg PO DAILY 09/05/16 [History] Lisinopril 40 mg PO HS 09/05/16 [History] Atorvastatin [Lipitor] 20 mg PO HS 05/17/18 [History] Aspirin 81 mg PO DAILY chew 05/22/18 [Rx] Acetaminophen Tab [Tylenol] 325 mg PO Q6HR PRN tab 05/31/18 [Rx] Heparin Sodium,Porcine [Heparin Sodium] 5,000 unit SQ Q12HR vial 05/31/18 [Rx] Follow up Appointment(s)/Referral(s): [facility] [Provider Group] - 1 Week Rudy Arce MD [Primary Care Provider] - 1-2 days Patient Instructions/Handouts: Dehydration (DC), Rhabdomyolysis (DC) Discharge Disposition: TRANSFER TO SNF/ECF
== END 2018-05-31 16:25 | DRG 641 ==
LOC: EC 17:53 → 2SICU 20:26 → 3SCARD 05-19 16:41 → 3NMEDONC 05-25 21:15 → 3SCARD 05-29 21:48
PROVIDERS: ADMIT Internal Medicine; ATTEND Internal Medicine
DX: E86.0 Dehydration (principal); E86.9 Volume depletion, unspecified; D72.829 Elevated white blood cell count, unspecified; E11.9 Type 2 diabetes mellitus without complications; E78.5 Hyperlipidemia, unspecified; H91.90 Unspecified hearing loss, unspecified ear; I10 Essential (primary) hypertension; I25.10 Atherosclerotic heart disease of native coronary artery without angina pectoris; I35.0 Nonrheumatic aortic (valve) stenosis; K21.9 Gastro-esophageal reflux disease without esophagitis; T79.6XXA Traumatic ischemia of muscle, initial encounter; W19.XXXA Unspecified fall, initial encounter; Z79.82 Long term (current) use of aspirin; Z79.84 Long term (current) use of oral hypoglycemic drugs; Z79.899 Other long term (current) drug therapy; Z95.0 Presence of cardiac pacemaker; Z95.2 Presence of prosthetic heart valve; Z98.42 Cataract extraction status, left eye; Z98.41 Cataract extraction status, right eye; R74.8 Abnormal levels of other serum enzymes; M19.90 Unspecified osteoarthritis, unspecified site; R53.1 Weakness
CPT/HCPCS: 36415; 70450; 71045; 71046; 72125; 72170; 80048; 80053; 81001; 82550; 82553; 83036; 83605; 83735; 84484; 85025; 85027; 85610; 85730; 90471; 90715; 93005; 93306; 94760; 96360; 96361; 99285

== ENCOUNTER 2018-07-26 17:17 | Inpatient (IN) | payer MEDICARE ==
[2018-07-26] MEDS ORDERED: SODIUM CHLORIDE 0.9% 500 ML 500 ML IV ONE ×2 (17:34→19:30)
--- NOTE | 2018-07-26 17:53 | ED ---
General Adult HPI - General Chief complaint: Fall Stated complaint: fall/altered Time Seen by Provider: 07/26/18 17:30 Source: patient, family, RN notes reviewed, old records reviewed Mode of arrival: wheelchair Limitations: no limitations - History of Present Illness Initial comments: 83-year-old male presents status post fall. 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 He has had some mild confusion, he was recently diagnosed with urinary tract infection, was initiated on antibiotics but has not received his first dose. No fever chills, no chest pain. He did have minor head trauma, no headache or neck pain currently. Denies any pain complaints. No vomiting or diarrhea. No fever or chills. - Related Data Home Medications Medication Instructions Recorded Confirmed Omeprazole [PriLOSEC] 20 mg PO DAILY 05/10/14 07/26/18 metFORMIN HCL [Glucophage] 500 mg PO BID 05/10/14 07/26/18 Hydrochlorothiazide [Hydrodiuril] 12.5 mg PO DAILY 09/05/16 07/26/18 Lisinopril 40 mg PO DAILY 09/05/16 07/26/18 Atorvastatin [Lipitor] 20 mg PO HS 05/17/18 07/26/18 Cephalexin [Keflex] 500 mg PO Q8H 07/26/18 07/26/18 Collagenase [Santyl] 1 applic TOPICAL DAILY 07/26/18 07/26/18 Ferrous Sulfate [Feosol] 325 mg PO HS 07/26/18 07/26/18 Mirtazapine [Remeron] 15 mg PO HS 07/26/18 07/26/18 Allergies Allergy/AdvReac Type Severity Reaction Status Date / Time No Known Allergies Allergy Verified 07/26/18 18:04 Review of Systems ROS Statement: Those systems with pertinent positive or pertinent negative responses have been documented in the HPI. ROS Other: All systems not noted in ROS Statement are negative. Past Medical History Past Medical History: Diabetes Mellitus, GERD/Reflux, Hyperlipidemia, Hypertension, Osteoarthritis (OA) Additional Past Medical History / Comment(s): heart murmur, [place], back pain, pacemaker History of Any Multi-Drug Resistant Organisms: MRSA Date of last positivie culture/infection: 06/01/18 MDRO Source:: Left Foot Past Surgical History: Orthopedic Surgery, Tonsillectomy Additional Past Surgical History / Comment(s): right shoulder surgery, rt carotid endarterectomy, luis cataracts, rt foot surgery Past Anesthesia/Blood Transfusion Reactions: No Reported Reaction Past Psychological History: No Psychological Hx Reported Smoking Status: Never smoker Past Alcohol Use History: Occasional Past Drug Use History: None Reported - Past Family History Brother(s) Family Medical History: Cancer General Exam Limitations: no limitations General appearance: alert, in no apparent distress Head exam: Present: atraumatic, normocephalic Eye exam: Present: normal appearance ENT exam: Present: mucous membranes dry Neck exam: Present: normal inspection. Absent: tenderness, meningismus Respiratory exam: Present: normal lung sounds bilaterally. Absent: respiratory distress Cardiovascular Exam: Present: regular rate, normal rhythm, systolic murmur GI/Abdominal exam: Present: soft. Absent: distended, tenderness, guarding Extremities exam: Present: other (Ecchymosis left wrist). Absent: pedal edema Neurological exam: Present: alert, oriented X3, CN II-XII intact. Absent: motor sensory deficit Skin exam: Present: warm, dry, intact. Absent: cyanosis, diaphoretic Course Vital Signs 07/26/18 07/26/18 17:25 18:44 Temperature 97.8 F 97.9 F Pulse Rate 85 80 Respiratory 20 18 Rate Blood Pressure 113/66 127/70 O2 Sat by Pulse 99 97 Oximetry EKG Findings - EKG Comments: EKG Findings:: EKG: Atrial sensed ventricular paced rhythm, rate 80, UT interval 188, QRS duration 176, QTC 514 Medical Decision Making - Medical Decision Making 83-year-old male presents status post fall, generalized weakness. Chest x-ray and pelvis x-ray obtained status post fall, negative for acute bony of her body, no focal pneumonia. CT head obtained negative for intracranial hemorrhage or mass effect, negative cervical spine. Patient has mild leukocytosis 12.7, hemoglobin 11.3, creatinine is elevated above baseline 1.37 from baseline of 0.98. Patient has significant urinary tract infection. Patient does live alone. Will be admitted for IV hydration, IV antibiotics. Blood culture and urine culture are pending. - Lab Data Result diagrams: 07/26/18 18:09 07/26/18 18:09 Lab Results 07/26/18 07/26/18 07/26/18 Range/Units 18:09 18:09 18:09 WBC 12.7 H (3.8-10.6) k/uL RBC 3.88 L (4.30-5.90) m/uL Hgb 11.3 L (13.0-17.5) gm/dL Hct 35.8 L (39.0-53.0) % MCV 92.3 (80.0-100.0) fL MCH 29.2 (25.0-35.0) pg MCHC 31.7 (31.0-37.0) g/dL RDW 14.5 (11.5-15.5) % Plt Count 111 L (150-450) k/uL Neutrophils % 84 % Lymphocytes % 8 % Monocytes % 5 % Eosinophils % 1 % Basophils % 0 % Neutrophils # 10.7 H (1.3-7.7) k/uL Lymphocytes # 1.0 (1.0-4.8) k/uL Monocytes # 0.6 (0-1.0) k/uL Eosinophils # 0.1 (0-0.7) k/uL Basophils # 0.0 (0-0.2) k/uL Sodium 141 (137-145) mmol/L Potassium 4.0 (3.5-5.1) mmol/L Chloride 106 (98-107) mmol/L Carbon Dioxide 24 (22-30) mmol/L Anion Gap 11 mmol/L BUN 39 H (9-20) mg/dL Creatinine 1.37 H (0.66-1.25) mg/dL Est GFR (CKD-EPI)AfAm 54 (>60 ml/min/1.73 sqM) Est GFR (CKD-EPI)NonAf 47 (>60 ml/min/1.73 sqM) Glucose 103 H (74-99) mg/dL Plasma Lactic Acid Adriel 1.2 (0.7-2.0) mmol/L Calcium 9.5 (8.4-10.2) mg/dL Magnesium 1.5 L (1.6-2.3) mg/dL Total Bilirubin 1.1 (0.2-1.3) mg/dL AST 44 (17-59) U/L ALT 26 (21-72) U/L Alkaline Phosphatase 71 (38-126) U/L Creatine Kinase 745 H (55-170) U/L Total Protein 6.9 (6.3-8.2) g/dL Albumin 4.0 (3.5-5.0) g/dL Urine Color Urine Appearance (Clear) Urine pH (5.0-8.0) Ur Specific [place] (1.001-1.035) Urine Protein (Negative) Urine Glucose (UA) (Negative) Urine Ketones (Negative) Urine Blood (Negative) Urine Nitrite (Negative) Urine Bilirubin (Negative) Urine Urobilinogen (<2.0) mg/dL Ur Leukocyte Esterase (Negative) Urine RBC (0-5) /hpf Urine WBC (0-5) /hpf Urine WBC Clumps (None) /hpf Urine Bacteria (None) /hpf Hyaline Casts (0-2) /lpf Urine Mucus (None) /hpf 07/26/18 Range/Units 18:56 WBC (3.8-10.6) k/uL RBC (4.30-5.90) m/uL Hgb (13.0-17.5) gm/dL Hct (39.0-53.0) % MCV (80.0-100.0) fL MCH (25.0-35.0) pg MCHC (31.0-37.0) g/dL RDW (11.5-15.5) % Plt Count (150-450) k/uL Neutrophils % % Lymphocytes % % Monocytes % % Eosinophils % % Basophils % % Neutrophils # (1.3-7.7) k/uL Lymphocytes # (1.0-4.8) k/uL Monocytes # (0-1.0) k/uL Eosinophils # (0-0.7) k/uL Basophils # (0-0.2) k/uL Sodium (137-145) mmol/L Potassium (3.5-5.1) mmol/L Chloride (98-107) mmol/L Carbon Dioxide (22-30) mmol/L Anion Gap mmol/L BUN (9-20) mg/dL Creatinine (0.66-1.25) mg/dL Est GFR (CKD-EPI)AfAm (>60 ml/min/1.73 sqM) Est GFR (CKD-EPI)NonAf (>60 ml/min/1.73 sqM) Glucose (74-99) mg/dL Plasma Lactic Acid Adriel (0.7-2.0) mmol/L Calcium (8.4-10.2) mg/dL Magnesium (1.6-2.3) mg/dL Total Bilirubin (0.2-1.3) mg/dL AST (17-59) U/L ALT (21-72) U/L Alkaline Phosphatase (38-126) U/L Creatine Kinase (55-170) U/L Total Protein (6.3-8.2) g/dL Albumin (3.5-5.0) g/dL Urine Color Yellow Urine Appearance Cloudy (Clear) Urine pH 5.5 (5.0-8.0) Ur Specific [place] 1.017 (1.001-1.035) Urine Protein Trace H (Negative) Urine Glucose (UA) Negative (Negative) Urine Ketones Negative (Negative) Urine Blood Moderate H (Negative) Urine Nitrite Negative (Negative) Urine Bilirubin Negative (Negative) Urine Urobilinogen <2.0 (<2.0) mg/dL Ur Leukocyte Esterase Large H (Negative) Urine RBC 30 H (0-5) /hpf Urine WBC >182 H (0-5) /hpf Urine WBC Clumps Many H (None) /hpf Urine Bacteria Rare H (None) /hpf Hyaline Casts 1 (0-2) /lpf Urine Mucus Rare H (None) /hpf Critical Care Time Critical Care Time: Yes Disposition Clinical Impression: Dehydration, UTI (urinary tract infection), Generalized weakness Disposition: ADMITTED IP TO THIS [facility] Condition: Stable Is patient prescribed a controlled substance at d/c from ED?: No Referrals: Rudy Arce MD [Primary Care Provider] - 1-2 days Decision to Admit Reason: Admit from EC Decision Date: 07/26/18 Decision Time: 19:41
--- NOTE | 2018-07-26 18:25 | CT ---
EXAMINATION TYPE: CT brain damon ramirez con DATE OF EXAM: 07/26/2018 COMPARISON: 05/17/2018 HISTORY: Fall with altered mental status. CT DLP: 1265.5 mGycm Automated exposure control for dose reduction was used. TECHNIQUE: CT scan of the head and cervical spine are performed without contrast. FINDINGS: There is cerebral cortical atrophy. There is enlargement of the ventricles. There is patc hy hypodensity in the periventricular white matter. There is no mass effect nor midline shift. There is no sign of intracranial hemorrhage. The calvarium is intact. The cervical vertebra have normal alignment. There is multilevel spondylotic changes in the cervical spine. There is no compression fracture. There is multilevel hypertrophic cervical facet arthropathy. The skull base is intact. There is no evidence of cervical spine fracture. There is some thickening and calcification of the transverse ligament. IMPRESSION: Cerebral atrophy and chronic small vessel ischemia. No acute intracranial abnormality. Spondylotic ch anges in the cervical spine. No fracture. No change compared to old exam.
[2018-07-26 18:27] LABS: Basophils % (A) 0 %; Eosinophils # (A) 0.1 k/uL (0-0.7); Eosinophils % (A) 1 %; HCT 35.8 % (39.0-53.0); HGB 11.3 gm/dL (13.0-17.5); Lymphocytes % (A) 8 %; MCH 29.2 pg (25.0-35.0); MCHC 31.7 g/dL (31.0-37.0); MCV 92.3 fL (80.0-100.0); Mean Platelet Volume 7.4; Monocytes # (A) 0.6 k/uL (0-1.0); Monocytes % (A) 5 %; Neutrophils # (A) 10.7 k/uL (1.3-7.7); Neutrophils % (A) 84 %; Platelet Count 111 k/uL (150-450); RBC 3.88 m/uL (4.30-5.90); RDW 14.5 % (11.5-15.5); WBC 12.7 k/uL (3.8-10.6)
--- NOTE | 2018-07-26 18:29 | XR ---
EXAMINATION TYPE: XR chest 1V portable DATE OF EXAM: 07/26/2018 COMPARISON: 05/29/2018 HISTORY: Fall TECHNIQUE: Single frontal view of the chest is obtained. FINDINGS: There is no heart failure nor confluent pneumonic infiltrate. Heart size is normal. There is left axillary pacemaker. There is aortic valve surgery. There is mild pleural thickening at the ri ght lung apex. Costophrenic angles are clear. IMPRESSION: No active cardiopulmonary disease. No change compared to old exam.
--- NOTE | 2018-07-26 18:31 | XR ---
EXAMINATION TYPE: XR pelvis AP view DATE OF EXAM: 07/26/2018 COMPARISON: 05/17/2018 HISTORY: Fall TECHNIQUE: Single view FINDINGS: Pelvic ring is intact. Proximal femurs and hip joints are intact. Sacroiliac joints appear normal. Hip joint spaces appear normal for age. IMPRESSION: No acute abnormality of the pelvis. No fracture seen. No change.
[2018-07-26 18:37] LABS: Calcium 9.5 mg/dL (8.4-10.2); Magnesium 1.5 mg/dL (1.6-2.3); Total Bilirubin 1.1 mg/dL (0.2-1.3); Total Protein 6.9 g/dL (6.3-8.2)
[2018-07-26] MEDS ORDERED: MAGNESIUM SULFATE-D5W PMX 1 GM in DEXTROSE/WATER 1 100ML.BAG IVPB ONE (19:24)
[2018-07-26 19:28] LABS: Appearance,Urine Cloudy (Clear); Bacteria,Urine Rare /hpf; Bilirubin,Urine Negative (Negative); Blood,Urine Moderate (Negative); Color,Urine Yellow; Glucose,Urine (UA) Negative (Negative); Hyaline Casts,Urine 1 /lpf (0-2); Ketones,Urine Negative (Negative); Leukocyte Esterase,Urine Large (Negative); Mucus,Urine Rare /hpf; Nitrite,Urine Negative (Negative); PH, Urine 5.5 (5.0-8.0); Protein,Urine Trace (Negative); RBC,Urine 30 /hpf (0-5); Specific Gravity,Urine 1.017 (1.001-1.035); Urobilinogen,Urine <2.0 mg/dL (<2.0); WBC,Urine >182 /hpf (0-5)
[2018-07-26] MEDS ORDERED: cefTRIAXone IN SWFI 1,000 MG/10 ML SYRINGE IVP STA (19:30)
[2018-07-26] MEDS ORDERED: VANCOMYCIN IV PER PHARMACY 1 EACH MISC MISCELLANE PRN (19:37)
[2018-07-26] MEDS ORDERED: VANCOMYCIN 1,500 MG in SODIUM CHLORIDE 0.9% 250 ML IVPB STA (21:01)
[2018-07-26] MEDS ORDERED: NALOXONE 0.4 MG/ML 1 ML VIAL IV PRN (21:02)
[2018-07-26] MEDS ORDERED: ACETAMINOPHEN TAB 325 MG TAB PO PRN (21:02)
[2018-07-26] MEDS: SODIUM CHLORIDE 0.9% 1,000 ML IV SCH (22:00)
[2018-07-27] MEDS: SODIUM CHLORIDE 0.9% 1,000 ML IV SCH ×2 (07:21→21:34)
[2018-07-27 11:34] VITALS: BMI 21.5
[2018-07-27] MEDS ORDERED: VANCOMYCIN 1,500 MG in SODIUM CHLORIDE 0.9% 250 ML IVPB SCH (13:00)
[2018-07-27 17:37] LABS: Glucose,Whole Blood 106 mg/dL (75-99)
[2018-07-27] MEDS: INSULIN ASPART (NovoLOG) 100 UNIT/ML VIAL SQ SCH ×2 (18:21→22:09)
[2018-07-27 19:25] LABS: Glucose,Whole Blood 144 mg/dL (75-99)
[2018-07-27] MEDS: FERROUS SULFATE 325 MG TAB PO SCH (21:29)
[2018-07-27] MEDS: MIRTAZAPINE 15 MG TAB PO SCH (21:29)
[2018-07-27] MEDS: metFORMIN 500 MG TAB PO SCH (21:30)
[2018-07-27] MEDS: ATORVASTATIN 20 MG TAB PO SCH (21:30)
--- NOTE | 2018-07-27 22:53 | HP ---
HISTORY AND PHYSICAL DATE OF ADMISSION: 07/26/2018. DATE OF SERVICE: 07/27/2018. PRESENTING COMPLAINT: Fall. HISTORY OF PRESENTING COMPLAINT: This is a very pleasant 83-year-old patient who follows with Dr. Arce. Chronic stable medical conditions include hypertension, diabetes, GERD, hyperlipidemia, osteoarthritis, chronic back pain, has a walker. The patient has been having falls at home which have been progressively getting worse. The patient did have a fall just very recently and somebody was checking on him. The patient was diagnosed to have a UTI. The patient had not yet started his antibiotics. The patient was brought into the ER. The patient states he has been progressively getting weak in his legs. No other focal weakness. No palpitations. No chest pain. Appetite is okay. No obvious dizziness or lightheadedness. Feels tired and run down. The patient is found to have a UTI in the ER growing enterococcus. Was started on vancomycin. Also found to have new renal failure, admitted for the same. Patient's two sons are at the bedside. The patient does lives by himself. REVIEW OF SYSTEMS: CONSTITUTIONAL: Tired. HEENT: Decreased hearing. RESPIRATORY: None. GASTROINTESTINAL: None. GENITOURINARY: Urinary symptoms. DERMATOLOGICAL, HEMATOLOGIC, LYMPHATICS: None. PSYCHIATRY: Slightly forgetful. NEUROLOGICAL: None. MUSCULOSKELETAL: Weakness in the muscles. PAST MEDICAL HISTORY: Diabetes mellitus type 2, GERD, hard of hearing, hyperlipidemia, hypertension, osteoarthritis, aortic stenosis, peripheral artery disease, bilateral hearing aids, wears right foot brace. PAST SURGICAL HISTORY: Pacemaker, tonsillectomy, right foot surgery, right carotid endarterectomy, bilateral cataract removal with lens implant. SOCIAL HISTORY: Lives alone. Has two sons that check in on him often. Has a cane and a walker. 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 No smoking. Alcohol occasionally. FAMILY HISTORY: Mother of cancer, type unknown. HOME MEDICATIONS: 1. Glucophage 500 mg b.i.d. 2. Prilosec 20 mg daily. 3. Remeron 50 mg at bedtime. 4. Lisinopril 40 mg p.o. daily. 5. Hydrochlorothiazide 12.5 p.o. daily. 6. Iron 325 p.o. at bedtime. 7. Bentyl 1 application topical daily to the foot. 8. Keflex 100 mg every 8. 9. Lipitor 20 mg at bedtime. ALLERGIES: None. PHYSICAL EXAMINATION: Vital signs on presentation, temperature 97.8, pulse 55, respirations 20, blood pressure 103/66, pulse ox 99 percent room air. GENERAL APPEARANCE: Average built, sitting up, awake. HEENT: Pupils equal. Conjunctivae normal. External nose and ears normal. Oral cavity normal. NECK: JVD not raised. Mass not palpable. Respiratory effort normal. LUNGS: Clear. CARDIOVASCULAR: 1st and 2nd heart sounds normal. No edema. ABDOMEN: Soft, nontender. Liver and spleen not palpable. LYMPHATIC: No lymph nodes palpable in neck or axillae. PSYCHIATRY: The patient is able answer simple questions. NEUROLOGICAL: Pupils equal. Cranial nerves intact. Power and sensation grossly intact. MUSCULOSKELETAL: Evidence of osteoarthritis. Some proximal muscle weakness, especially in the legs. INVESTIGATIONS: White count 12.7, hemoglobin 11.3, potassium 4.0, BUN 39, creatinine 1.37. UA positive for leukocyte esterase, WBC, WBC clumps. Urine culture is growing group D Enterococcus. ASSESSMENT: 1. Acute urinary tract infection from cystitis from group D Enterococcus. 2. 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 3. Diabetes mellitus type 2 on oral hypoglycemic. 4. Essential hypertension. 5. Gastroesophageal reflux disease. 6. Hyperlipidemia. 7. Primary osteoarthritis. 8. Chronic gait dysfunction, uses a walker. PLAN: Patient initially started on vancomycin and ceftriaxone. Given the renal function, we will DC the vancomycin. Given the renal failure, we will hold off patient's hydrochlorothiazide and MAUREEN inhibitor. Give IV fluids. When renal function is better the MAUREEN inhibitor can be reintroduced. In the meantime, PT and OT has been consulted. Had a very lengthy talk with the patient and the two sons at the bedside. The patient needs to be going into assisted living and the sons have already looked into the same. Will give Lovenox for DVT prophylaxis. MMODL / IJN: [id number] /
[2018-07-28 06:56] LABS: Glucose,Whole Blood 98 mg/dL (75-99)
[2018-07-28] MEDS: INSULIN ASPART (NovoLOG) 100 UNIT/ML VIAL SQ SCH ×4 (07:18→20:53)
[2018-07-28] MEDS: PANTOPRAZOLE 40 MG TABLET PO SCH (07:38)
[2018-07-28] MEDS: metFORMIN 500 MG TAB PO SCH ×2 (07:38→21:32)
[2018-07-28] MEDS: COLLAGENASE 250 UNIT/GM OINTMENT 30 GM TUBE TOPICAL SCH (07:47)
[2018-07-28 08:04] LABS: Calcium 8.7 mg/dL (8.4-10.2); Potassium 3.9 mmol/L (3.5-5.1)
[2018-07-28] MEDS ORDERED: LISINOPRIL 20 MG TAB PO SCH (09:00)
[2018-07-28] MEDS ORDERED: HYDROCHLOROTHIAZIDE 12.5 MG CAP PO SCH (09:00)
[2018-07-28] MEDS: SODIUM CHLORIDE 0.9% 1,000 ML IV SCH (11:11)
[2018-07-28 11:21] LABS: Glucose,Whole Blood 107 mg/dL (75-99)
[2018-07-28 12:21] LABS: Glucose,Whole Blood 85 mg/dL (75-99)
[2018-07-28 16:15] VITALS: RESP 16
[2018-07-28 17:11] LABS: Glucose,Whole Blood 133 mg/dL (75-99)
[2018-07-28] MEDS: AMPICILLIN-SULBACTAM 1.5 GM in SODIUM CHLORIDE 0.9% 50 ML IVPB SCH ×2 (18:00→23:44)
--- NOTE | 2018-07-28 19:33 | CONS ---
CONSULTATION DATE OF SERVICE: 07/28/2018. REASON FOR CONSULTATION: Urinary tract infection with mental status changes. HISTORY OF PRESENT ILLNESS: The patient is an 83-year-old male who was brought into the ER at [facility] yesterday evening after apparently the patient did have a fall in the morning and the patient was unable to get up for approximately 6 hours. The patient noticed to have mild confusion. Apparently the patient has been diagnosed in the outpatient setting with UTI. The patient was started on antibiotic and has taken only one dose. The patient's symptoms remains to be generalized weakness and no energy. Denies having any headache or URI symptoms. No chest pain. No shortness of breath. No cough. No abdominal pain. Some difficulty and burning of urine but no suprapubic or flank pain. With these symptoms, the patient was evaluated by the ER physician. On arrival to the ER, the patient has been afebrile. The patient's white count was mildly elevated at 12.7. The patient UA was positive with large leukocyte esterase, more than WBCs with many bacteria. The patient has been started on Rocephin and admitted to the hospital. Infectious Disease was consulted for further recommendations regarding antibiotic therapy. Did receive a dose of vancomycin in the ER as well. REVIEW OF SYSTEMS: All positive points have been mentioned in HPI. Rest of the systems are negative. PAST MEDICAL HISTORY: Significant for diabetes mellitus, gastroesophageal reflux disease, hyperlipidemia, hypertension, osteoarthritis and history of an MRSA infection from the left foot. PAST SURGICAL HISTORY: Tonsillectomy, pacemaker placement, right shoulder surgery, right carotid endarterectomy, bilateral cataract surgery. SOCIAL HISTORY: No history of smoking. Occasionally drinks. No drug use. FAMILY HISTORY: No pertinent findings noticed. ALLERGIES: No known drug allergies. MEDICATION: Medications include the patient is currently on Protonix, Narcan, Remeron, Glucophage, NovoLog, iron sulfate, Rocephin, Lipitor, and Tylenol. PHYSICAL EXAMINATION: Blood pressure 145/73 with a pulse of 66, temperature 98. He is 98% on room air. General description is an elderly male up in the chair in no distress. No tachypnea or accessory muscles of respiration use. HEENT: Shows pallor. No scleral icterus. Oral mucosa membranes are dry. Neck trachea central. No thyromegaly. Lungs unlabored breathing. Clear to auscultation anteriorly. No wheeze or crackles. Heart S1, S2. Regular rate and rhythm. ABDOMEN: Soft, no tenderness. No guarding or rigidity. EXTREMITIES: No edema of the feet. Skin examination: No rash or mass palpable. Neurologic: The patient is awake, alert, oriented times three. Mood and affect normal. LABS: Hemoglobin 11.2, white count 12.7, BUN of 23, creatinine 1.14. Electrolytes have been normal. Urine was positive. Culture now showing Enterococcus species. DIAGNOSTIC IMPRESSION AND PLAN: Patient admitted to the hospital with fall, mental status changes which is likely multifactorial in this patient who does have a component of urinary tract infection, urine showing Enterococcus species. No evidence of any gram-negative infection. PLAN: 1. Discontinue the Rocephin. 2. We will start the patient on Unasyn 1.5 gram q.6 hours. 3. Gentle IV fluid. 4. We will follow up on clinical condition as well as culture to finalize to determine his discharge antibiotic. Thank you for this consultation. We will follow this patient along with you. MMODL / IJN: [id number] /
[2018-07-28 20:52] LABS: Glucose,Whole Blood 102 mg/dL (75-99)
[2018-07-28] MEDS: FERROUS SULFATE 325 MG TAB PO SCH (21:32)
[2018-07-28] MEDS: MIRTAZAPINE 15 MG TAB PO SCH (21:32)
[2018-07-28] MEDS: ATORVASTATIN 20 MG TAB PO SCH (21:32)
[2018-07-29] MEDS: SODIUM CHLORIDE 0.9% 1,000 ML IV SCH ×2 (01:25→16:53)
[2018-07-29] MEDS: AMPICILLIN-SULBACTAM 1.5 GM in SODIUM CHLORIDE 0.9% 50 ML IVPB SCH ×3 (05:40→16:52)
[2018-07-29] MEDS: PANTOPRAZOLE 40 MG TABLET PO SCH (07:02)
[2018-07-29] MEDS: metFORMIN 500 MG TAB PO SCH ×2 (07:02→21:02)
[2018-07-29] MEDS: COLLAGENASE 250 UNIT/GM OINTMENT 30 GM TUBE TOPICAL SCH (07:04)
[2018-07-29] MEDS: INSULIN ASPART (NovoLOG) 100 UNIT/ML VIAL SQ SCH ×4 (07:05→21:16)
[2018-07-29 07:18] LABS: Glucose,Whole Blood 90 mg/dL (75-99)
[2018-07-29 07:58] LABS: Calcium 8.6 mg/dL (8.4-10.2); Potassium 3.8 mmol/L (3.5-5.1)
[2018-07-29 08:48] LABS: Basophils % (A) 0 %; Eosinophils # (A) 0.2 k/uL (0-0.7); Eosinophils % (A) 3 %; HCT 29.8 % (39.0-53.0); Lymphocytes # (A) 0.7 k/uL (1.0-4.8); Lymphocytes % (A) 9 %; MCH 28.4 pg (25.0-35.0); MCHC 31.1 g/dL (31.0-37.0); MCV 91.5 fL (80.0-100.0); Mean Platelet Volume 7.6; Monocytes # (A) 0.5 k/uL (0-1.0); Monocytes % (A) 6 %; Neutrophils # (A) 6.3 k/uL (1.3-7.7); Neutrophils % (A) 80 %; RBC 3.25 m/uL (4.30-5.90); RDW 14.3 % (11.5-15.5); WBC 7.8 k/uL (3.8-10.6)
[2018-07-29 08:52] LABS: HGB 9.2 gm/dL (13.0-17.5)
[2018-07-29 10:48] LABS: Platelet Count 99 k/uL (150-450)
[2018-07-29 11:46] LABS: Glucose,Whole Blood 107 mg/dL (75-99)
--- NOTE | 2018-07-29 15:15 | P.PN ---
Subjective Progress Note Date: 07/28/18 Principal diagnosis: UTI Covering for Dr. Cordero over the weekend 83-year-old male with chronic medical conditions admitted to the hospital after having a fall. Patient was diagnosed to have a UTI and currently on IV antibiotics. He also had acute kidney injury that is currently resolving with IV fluids. Today the patient is sitting up in a chair by the bedside appears to be no acute distress. Patient's 2 sons are at the bedside. Patient denies having any fevers chills or rigors. No dysuria or hematuria. He denies having any chest pain or palpitations. No cough or difficulty in breathing. No abdominal pain nausea vomiting or diarrhea. He denies having any swelling of his lower extremities. Patient's labs and medications have been reviewed Active Medications Acetaminophen (Tylenol Tab) 650 mg PO Q6HR PRN PRN Reason: Mild Pain or Fever > 100.5 Atorvastatin Calcium (Lipitor) 20 mg PO [facility] Last Admin: 07/27/18 21:30 Dose: 20 mg Documented by: Ferrous Sulfate (Feosol) 325 mg PO [facility] Last Admin: 07/27/18 21:29 Dose: 325 mg Documented by: Sodium Chloride (Saline 0.9%) 1,000 mls @ 75 mls/hr IV .[id number] [facility] Last Admin: 07/28/18 11:11 Dose: 75 mls/hr Documented by: Ampicillin Sodium/Sulbactam (Sodium 1.5 gm/ Sodium Chloride) 50 mls @ 100 mls/hr IVPB Q6HR [facility] Insulin Aspart (Novolog) 0 unit SQ ACHS [facility]; Protocol Last Admin: 07/28/18 11:11 Dose: Not Given Documented by: Metformin HCl (Glucophage) 500 mg PO BID [facility] Last Admin: 07/28/18 07:38 Dose: 500 mg Documented by: Mirtazapine (Remeron) 15 mg PO [facility] Last Admin: 07/27/18 21:29 Dose: 15 mg Documented by: Naloxone HCl (Narcan) 0.2 mg IV Q2M PRN PRN Reason: Opioid Reversal Collagenase 250 Unit /Gm Ointment 30 Gm Tube 1 each TOPICAL DAILY [facility] Last Admin: 07/28/18 07:47 Dose: Not Given Documented by: Pantoprazole Sodium (Protonix) 40 mg PO AC-BRKFST [facility] Last Admin: 07/28/18 07:38 Dose: 40 mg Documented by: Objective - Vital Signs Vital signs: Vital Signs Temp 98.0 F 07/28/18 15:00 Pulse 85 07/28/18 15:00 Resp 16 07/28/18 15:00 BP 158/79 07/28/18 15:00 Pulse Ox 99 07/28/18 15:00 Intake & Output 07/27/18 07/28/18 07/28/18 18:59 06:59 18:59 Intake Total 500 Balance 500 Intake: Intake, IV Titration 500 Amount Sodium Chloride 0.9% 1, 450 000 ml @ 75 mls/hr IV . [id number] [facility] Rx#:[id number] cefTRIAXone 1 gm In 50 Sodium Chloride 0.9% 50 ml @ 100 mls/hr IVPB Q24H [facility] Rx#:[id number] Other: Voiding Method Toilet Toilet # Voids 0 3 - Exam GEN. APPEARANCE: Elderly male sitting up in a chair by the bedside. No acute distress. HEAD EXAM: atraumatic, normocephalic, normal inspection EYE EXAM: normal appearance, PERRL, EOMI. Absent: scleral icterus, conjunctival injection, periorbital swelling ENT EXAM: normal exam, mucous membranes moist NECK EXAM: normal inspection. Absent: tenderness, meningismus, full ROM, lymphadenopathy RESPIRATORY EXAM: normal lung sounds bilaterally. Absent: respiratory distress, wheezes, rales, rhonchi, stridor CARDIOVASCULAR EXAM: regular rate, normal rhythm, normal heart sounds. Absent: systolic murmur, diastolic murmur, rubs, gallop, clicks GI/ABDOMINAL EXAM: soft, normal bowel sounds. Absent: distended, tenderness, guarding, rebound, rigid EXTREMITIES EXAM: normal inspection, full ROM, normal capillary refill. Absent: tenderness, pedal edema, joint swelling, calf tenderness BACK EXAM: normal inspection NEUROLOGICAL EXAM: alert, oriented X2, no focal neurological deficits SKIN EXAM: warm, dry, intact, normal color. Absent: rash - Labs CBC & Chem 7: 07/26/18 18:09 07/28/18 07:21 Labs: Abnormal Lab Results - Last 24 Hours (Table) 07/27/18 07/27/18 07/28/18 Range/Units 17:26 19:24 07:21 Chloride 112 H (98-107) mmol/L BUN 23 H (9-20) mg/dL POC Glucose (mg/dL) 106 H 144 H (75-99) mg/dL 07/28/18 Range/Units 11:09 Chloride (98-107) mmol/L BUN (9-20) mg/dL POC Glucose (mg/dL) 107 H (75-99) mg/dL Microbiology - Last 24 Hours (Table) 07/26/18 18:00 Blood Culture - Preliminary Blood No Growth after 24 hours 07/26/18 18:56 Urine Culture - Preliminary Urine,Voided Group D Enterococcus Assessment and Plan Assessment: ASSESSMENT Acute urinary tract infection from group D enterococcus 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 Patient's creatinine has been slowly trending down with IV fluids. As per the discussion with the patient's son is his mentation is back to his baseline. They are looking forward to have him placed in an assisted living facility and psychiatric social worker supervisor aware of the situation and working on it. Continue with DVT prophylaxis. Further recommendations to follow depending on the progress of the patient.
--- NOTE | 2018-07-29 15:18 | P.PN ---
Subjective Progress Note Date: 07/29/18 Principal diagnosis: UTI Covering for Dr. Cordero over the weekend 83-year-old male with chronic medical conditions admitted to the hospital after having a fall. Patient was diagnosed to have a UTI and currently on IV antibiotics. He also had acute kidney injury that is currently resolving with IV fluids. Today the patient is sitting up in a chair by the bedside appears to be no acute distress. On review of systems- Patient denies having any fevers chills or rigors. No dysuria or hematuria. He denies having any chest pain or palpitations. No cough or difficulty in breathing. No abdominal pain nausea vomiting or diarrhea. He denies having any swelling of his lower extremities. Patient's labs and medications have been reviewed Active Medications Generic Name Dose Route Start Last Admin Trade Name Freq PRN Reason Stop Dose Admin Acetaminophen 650 mg 07/26/18 21:02 Tylenol Tab PO Q6HR PRN Mild Pain or Fever > 100.5 Atorvastatin Calcium 20 mg 07/27/18 21:00 07/28/18 21:32 Lipitor PO 20 mg HS [facility] Administration Ferrous Sulfate 325 mg 07/27/18 21:00 07/28/18 21:32 Feosol PO 325 mg HS [facility] Administration Sodium Chloride 1,000 mls @ 75 mls/hr 07/26/18 19:45 07/29/18 01:25 Saline 0.9% IV Not Given .[id number] [facility] Ampicillin Sodium/Sulbactam 50 mls @ 100 mls/hr 07/28/18 18:00 07/29/18 11:49 Sodium 1.5 gm/ Sodium Chloride IVPB 100 mls/hr Q6HR [facility] Administration Insulin Aspart 0 unit 07/27/18 17:30 07/29/18 11:44 Novolog SQ Not Given ACHS [facility] Protocol Metformin HCl 500 mg 07/27/18 21:00 07/29/18 07:02 Glucophage PO 500 mg BID [facility] Administration Mirtazapine 15 mg 07/27/18 21:00 07/28/18 21:32 Remeron PO 15 mg HS [facility] Administration Naloxone HCl 0.2 mg 07/26/18 21:02 Narcan IV Q2M PRN Opioid Reversal Collagenase 250 Unit 1 each 07/28/18 09:00 07/29/18 07:04 /Gm Ointment 30 Gm TOPICAL Not Given Tube DAILY [facility] Pantoprazole Sodium 40 mg 07/28/18 07:30 07/29/18 07:02 Protonix PO 40 mg AC-BRKFST [facility] Administration Objective - Vital Signs Vital signs: Vital Signs Temp 97.9 F 07/29/18 14:52 Pulse 62 07/29/18 14:52 Resp 16 07/29/18 14:52 BP 150/62 07/29/18 14:52 Pulse Ox 100 07/29/18 14:52 Intake & Output 07/28/18 07/29/18 07/29/18 18:59 06:59 18:59 Intake Total 150 Balance 150 Intake: Intake, IV Titration 150 Amount Sodium Chloride 0.9% 1, 150 000 ml @ 75 mls/hr IV . [id number] [facility] Rx#:[id number] Other: Voiding Method Toilet Toilet Toilet # Voids 1 3 - Exam GEN. APPEARANCE: Elderly male sitting up in a chair by the bedside. No acute distress. HEAD EXAM: atraumatic, normocephalic, normal inspection EYE EXAM: No pallor or icterus. ENT EXAM: normal exam, mucous membranes moist RESPIRATORY EXAM: normal lung sounds bilaterally. CARDIOVASCULAR EXAM: regular rate, normal rhythm, normal heart sounds. GI/ABDOMINAL EXAM: soft, normal bowel sounds. Absent: distended, tenderness, guarding, rebound, rigid EXTREMITIES EXAM: no edema BACK EXAM: normal inspection NEUROLOGICAL EXAM: alert, oriented X2, no focal neurological deficits SKIN EXAM: warm, dry, intact, normal color. Absent: rash - Labs CBC & Chem 7: 07/29/18 06:59 07/29/18 06:59 Labs: Abnormal Lab Results - Last 24 Hours (Table) 07/28/18 07/28/18 07/29/18 Range/Units 16:59 20:40 06:59 RBC 3.25 L (4.30-5.90) m/uL Hgb 9.2 L D (13.0-17.5) gm/dL Hct 29.8 L (39.0-53.0) % Plt Count 99 L (150-450) k/uL Lymphocytes # 0.7 L (1.0-4.8) k/uL Chloride (98-107) mmol/L BUN (9-20) mg/dL Creatinine (0.66-1.25) mg/dL POC Glucose (mg/dL) 133 H 102 H (75-99) mg/dL 07/29/18 07/29/18 Range/Units 06:59 11:32 RBC (4.30-5.90) m/uL Hgb (13.0-17.5) gm/dL Hct (39.0-53.0) % Plt Count (150-450) k/uL Lymphocytes # (1.0-4.8) k/uL Chloride 111 H (98-107) mmol/L BUN 21 H (9-20) mg/dL Creatinine 1.27 H (0.66-1.25) mg/dL POC Glucose (mg/dL) 107 H (75-99) mg/dL Microbiology - Last 24 Hours (Table) 07/26/18 18:56 Urine Culture - Final Urine,Voided Enterococcus faecalis 07/26/18 18:00 Blood Culture - Preliminary Blood No Growth after 48 hours Assessment and Plan Assessment: ASSESSMENT Acute urinary tract infection from group D enterococcus 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 Dawkins yesterday , for his UTI. Patient's creatinine back to his baseline. IV fluids have been discontinued today. Family looking forward to have him placed in an assisted living facility and social studies teacher aware of the situation and working on it. Continue with DVT prophylaxis. Dr. Cordero to follow the patient from tomorrow.
[2018-07-29 17:00] LABS: Glucose,Whole Blood 104 mg/dL (75-99)
[2018-07-29 20:48] LABS: Glucose,Whole Blood 135 mg/dL (75-99)
[2018-07-29] MEDS: ATORVASTATIN 20 MG TAB PO SCH (21:01)
[2018-07-29] MEDS: FERROUS SULFATE 325 MG TAB PO SCH (21:01)
[2018-07-29] MEDS: MIRTAZAPINE 15 MG TAB PO SCH (21:02)
--- NOTE | 2018-07-29 22:13 | PN ---
PROGRESS NOTE DATE OF SERVICE: 07/29/2018. REASON FOR FOLLOWUP: Enterococcus faecalis and urinary tract infection. INTERVAL HISTORY: The patient is currently afebrile. The patient has been breathing comfortably. He is more awake, alert. Denies having any chest pain or cough. No abdominal pain. No diarrhea. EXAMINATION: Blood pressure 150/62 with a pulse of 62. Temperature 97.9. He is 100% on room air. General description is an elderly male up in the chair in no distress. Respiratory system: Unlabored breathing. Clear to auscultation anteriorly. Heart S1, S2. Regular rate and rhythm. Abdomen soft. No tenderness. LABS: Hemoglobin 9.2, white count 7.8, BUN of 21, creatinine 1.27. Urine has been finalized with Enterococcus faecalis that is sensitive pathogen. DIAGNOSTIC IMPRESSION AND PLAN: Patient with enterococcus faecalis urinary tract infection. Patient currently covered with Unasyn. Blood cultures have been negative. PLAN: We will finish therapy with oral Augmentin. Continue supportive care. MMODL / IJN: [id number] /
[2018-07-30] MEDS: AMPICILLIN-SULBACTAM 1.5 GM in SODIUM CHLORIDE 0.9% 50 ML IVPB SCH ×3 (00:50→11:39)
[2018-07-30 06:54] LABS: Glucose,Whole Blood 88 mg/dL (75-99)
[2018-07-30 07:44] LABS: HCT 28.1 % (39.0-53.0); HGB 9.1 gm/dL (13.0-17.5); MCH 29.4 pg (25.0-35.0); MCHC 32.2 g/dL (31.0-37.0); MCV 91.3 fL (80.0-100.0); Mean Platelet Volume 7.6; Platelet Count 100 k/uL (150-450); RBC 3.08 m/uL (4.30-5.90); RDW 14.3 % (11.5-15.5)
[2018-07-30 07:53] LABS: Calcium 8.8 mg/dL (8.4-10.2); Potassium 3.9 mmol/L (3.5-5.1)
[2018-07-30 08:03] VITALS: BP 112/57; PULSE 63; TEMP 97.9
[2018-07-30] MEDS: INSULIN ASPART (NovoLOG) 100 UNIT/ML VIAL SQ SCH ×2 (08:53→11:44)
[2018-07-30] MEDS: COLLAGENASE 250 UNIT/GM OINTMENT 30 GM TUBE TOPICAL SCH (08:57)
[2018-07-30] MEDS: PANTOPRAZOLE 40 MG TABLET PO SCH (09:04)
[2018-07-30] MEDS: metFORMIN 500 MG TAB PO SCH (09:04)
--- NOTE | 2018-07-30 10:13 | CDI ---
Documentation Clarification Form Date: 07/30/2018 10:00:51 AM From: Martha Love RN CCDS Admit Date: 07/26/2018 9:03:00 PM Patient Name: Shaheen Contreras Visit Number: [id number] Discharge Date: ATTENTION: The Clinical Documentation Specialists (CDI) and [facility] Coding Staff appreciate your assistance in clarifying documentation. Please respond to the clarification below the line at the bottom and electronically sign. The CDI & [facility] Coding staff will review the response and follow-up if needed. Please note: Queries are made part of the Legal Health Record. If you have any questions, please contact the author of this message via ITS. Dr. Raghav Dawkins Mental Status was documented in your Consult 07/28/2018 History/Risk Factors: 83 year old female presents to the ED after a fall. Medical Hx DM2, GERD , PAD, Clinical Indicators: Per your consult Patient admitted to the hospital with fall, mental status changes which is likely multifactorial in this patient who does have a component of urinary tract infection, urine showing Enterococcus species.No evidence of any gram-negative infection. Labs: wbc 12.7, Urine culture Enterococcus faecalis CT Brain - no acute intracranial process Treatment: Unasyn ivpb In your professional opinion, please clarify the etiology of the Altered Mental Status, if known. * Acute Metabolic Encephalopathy secondary to UTI * Other condition (please specify) * Unable to determine (Last Revision: July 2017) MTDD
[2018-07-30] MEDS: SODIUM CHLORIDE 0.9% 1,000 ML IV SCH (11:44)
[2018-07-30 11:47] LABS: Glucose,Whole Blood 98 mg/dL (75-99)
[2018-07-30] MEDS ORDERED: amLODIPine 5 MG TAB PO STA (14:17)
--- NOTE | 2018-07-30 17:41 | PN ---
PROGRESS NOTE DATE OF SERVICE: 07/30/2018. REASON FOR FOLLOWUP: 1. Enterococcus urinary tract infection. 2. Bilateral feet plantar wound. INTERVAL HISTORY: The patient is currently afebrile. The patient has been breathing comfortably. Denies having any chest pain or any cough. No nausea, no vomiting. No abdominal pain. No diarrhea. PHYSICAL EXAMINATION: Blood pressure 112/57 with a pulse of 63. Temperature 97.9. He is 93% on room air. General description is an elderly male up in the room in no distress. The patient's respiratory system: Unlabored breathing. Clear to auscultation. Bilateral feet plantar aspect did have a wound with no slough tissue. No surrounding redness or any drainage. LABS: Hemoglobin is 9.1, white count 7.0, BUN of 20, creatinine 1.22. DIAGNOSTIC IMPRESSION AND PLAN: 1. Patient with enterococcus faecalis urinary tract infection. Currently covered with Unasyn that will be transitioned to oral Augmentin to finish a course of therapy. Patient on presentation did have encephalopathy more likely metabolic secondary to acute urinary tract infection and has shown overall improvement after treatment for his urinary tract infection. 2. The patient with bilateral foot plantar wound. Local care with Aquacel Silver dressing to be changed q.48 hours. MMODL / IJN: [id number] /
[2018-07-30 20:23] LABS: Hemoglobin A1C 5.8 % (4.0-6.0)
--- NOTE | 2018-07-31 05:43 | DS ---
DISCHARGE SUMMARY DATE OF ADMISSION: 07/26/2018 DATE OF DISCHARGE: 07/30/2018 FINAL DIAGNOSES: 1. Acute urinary tract infection from cystitis from group D Enterococcus. 2. 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 3. Diabetes mellitus type 2 on oral hypoglycemics. 4. Essential hypertension. 5. Gastroesophageal reflux disease. 6. Hyperlipidemia. 7. Primary osteoarthritis. 8. Chronic gait dysfunction, uses a walker. 9. Bilateral foot plantar wound, present on admission, probably stage III decubitus ulcer. 10.Acute urinary tract infection from cystitis with Enterococcus faecalis. HOSPITAL COURSE: This patient presented with increasing falls, found to have acute UTI from group D Enterococcus. Also felt to have some proximal lower extremity myopathy, probably from diabetes. The patient had been living with himself. The patient is now going to living set up. Antibiotics reported by Dr. Dawkins. The patient is tolerating a diet. CONSULTATION: Dr. Dawkins from Infectious Disease. PHYSICAL EXAMINATION: On examination, temperature 97.9, pulse 63, respirations 16, blood pressure 112/57, pulse ox 96% on room air. ABDOMEN: Soft, nontender. Able to answer simple questions. Hemoglobin 9.1, white count 7. BUN and creatinine normal. DISCHARGE MEDICATIONS: 1. Prilosec 20 mg p.o. daily. 2. Glucophage 500 mg p.o. b.i.d. 3. Hydrochlorothiazide 12.5 p.o. daily. 4. Lisinopril 40 mg p.o. daily. 5. Lipitor 20 mg q.h.s. 6. Iron 325 p.o. q.h.s. 7. Remeron 15 mg q.h.s. 8. Augmentin 875 one tablet q.12, fourteen tablets. 9. Norvasc 5 mg p.o. daily. Follow with Dr. Rudy Arce in 3 days. Follow up with Dr. Dawkins on 08/06/2018. [facility] to continue. Aquacel silver dressing to bilateral foot plantar wound to be changed every 48 hours. MMODL / IJN: [id number] /
== END 2018-07-30 14:58 | disposition home health service (06) | DRG 689 ==
LOC: EC 17:17 → 4SSUR 21:03 → 4MS4W 21:46 → 4SSUR 07-27 11:12
PROVIDERS: ADMIT Hospitalist; ATTEND Hospitalist
DX: N30.00 Acute cystitis without hematuria (principal); L89.893 Pressure ulcer of other site, stage 3; G93.41 Metabolic encephalopathy; N17.9 Acute kidney failure, unspecified; E86.0 Dehydration; S09.90XA Unspecified injury of head, initial encounter; E11.8 Type 2 diabetes mellitus with unspecified complications; G72.89 Other specified myopathies; I35.0 Nonrheumatic aortic (valve) stenosis; B95.2 Enterococcus as the cause of diseases classified elsewhere; E78.5 Hyperlipidemia, unspecified; G89.29 Other chronic pain; H91.93 Unspecified hearing loss, bilateral; I10 Essential (primary) hypertension; K21.9 Gastro-esophageal reflux disease without esophagitis; M15.9 Polyosteoarthritis, unspecified; R29.6 Repeated falls; R26.9 Unspecified abnormalities of gait and mobility; M54.9 Dorsalgia, unspecified; Z79.84 Long term (current) use of oral hypoglycemic drugs; Z79.899 Other long term (current) drug therapy; Z95.0 Presence of cardiac pacemaker; Z86.14 Personal history of Methicillin resistant Staphylococcus aureus infection; Z80.9 Family history of malignant neoplasm, unspecified; W19.XXXA Unspecified fall, initial encounter
CPT/HCPCS: 36415; 70450; 71045; 72125; 72170; 80048; 80053; 81001; 82550; 83036; 83605; 83735; 85025; 85027; 87040; 87077; 87086; 87186; 93005; 94760; 96361; 96365; 96366; 96367; 96375; 99285

== ENCOUNTER 2018-11-12 19:40 | Emergency (ER) | payer MEDICARE ==
--- NOTE | 2018-11-12 21:20 | XR ---
EXAMINATION TYPE: XR Hip LT and AP Pelvis DATE OF EXAM: 11/12/2018 COMPARISON: 07/26/2018 HISTORY: Hip pain TECHNIQUE: A single AP view of the pelvis is obtained. Two views of the left hip are obtained. FINDINGS: The pelvic ring is intact. Proximal left femur and hip joint are intact. There is acetabular spurring . Sacroiliac joints are intact. There is some vascular calcification. IMPRESSION: Degenerative hypertrophic spurring at the hip joints without significant joint space narrowing. No ch ramos compared to pelvis x-ray 07/26/2018.
[2018-11-12] MEDS ORDERED: SODIUM CHLORIDE 0.9% 1,000 ML IV STA (22:23)
[2018-11-12 22:40] LABS: HCT 31.1 % (39.0-53.0); HGB 10.2 gm/dL (13.0-17.5); MCH 29.2 pg (25.0-35.0); MCHC 32.6 g/dL (31.0-37.0); MCV 89.3 fL (80.0-100.0); Mean Platelet Volume 7.7; Platelet Count 125 k/uL (150-450); RBC 3.48 m/uL (4.30-5.90); RDW 13.8 % (11.5-15.5); WBC 10.2 k/uL (3.8-10.6)
[2018-11-12 22:51] LABS: Albumin 3.9 g/dL (3.5-5.0); Calcium 9.5 mg/dL (8.4-10.2); Potassium 4.8 mmol/L (3.5-5.1); Total Bilirubin 0.3 mg/dL (0.2-1.3); Total Protein 6.8 g/dL (6.3-8.2)
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
[2018-11-12 23:34] VITALS: BP 112/53; PULSE 60; RESP 18; TEMP 98
== END 2018-11-13 | disposition home or self-care (01) ==
LOC: EC 19:40
DX: R60.0 Localized edema (principal); M79.89 Other specified soft tissue disorders; E11.51 Type 2 diabetes mellitus with diabetic peripheral angiopathy without gangrene; K21.9 Gastro-esophageal reflux disease without esophagitis; H91.93 Unspecified hearing loss, bilateral; E78.5 Hyperlipidemia, unspecified; I10 Essential (primary) hypertension; Z79.84 Long term (current) use of oral hypoglycemic drugs; Z79.899 Other long term (current) drug therapy; Z86.14 Personal history of Methicillin resistant Staphylococcus aureus infection; Z87.39 Personal history of other diseases of the musculoskeletal system and connective tissue; W01.0XXA Fall on same level from slipping, tripping and stumbling without subsequent striking against object, initial encounter; Y92.009 Unspecified place in unspecified non-institutional (private) residence as the place of occurrence of the external cause
CPT/HCPCS: 36415; 73502; 80053; 85027; 96360; 99283

== ENCOUNTER → 2019-04-27 | Outpatient (CLI) | payer MEDICARE ==
[2019-04-27 17:40] LABS: Chol/HDL Ratio 2.26; LDL Cholesterol,Calculated 73.8 mg/dL (0.0-131.0); VLDL Calculation 14.2 mg/dL (5.00-40.00)
== END | disposition home or self-care (01) ==
LOC: LABWHC1 10:07
PROVIDERS: ATTEND Nurse Practitioner Adult Health
DX: E78.2 Mixed hyperlipidemia (principal)
CPT/HCPCS: 36415; 80061; 84450; 84460

== ENCOUNTER → 2019-05-07 | Outpatient (CLI) | payer MEDICARE ==
[2019-05-08 01:12] LABS: African American GFR (CKD) 57.7 (60.0-200.0); Anion Gap 9.4 mmol/L (4.00-12.00); BUN/Creat Ratio 21.54 Ratio (12.00-20.00); Calcium 9.4 mg/dL (8.7-10.3); Carbon Dioxide 27.6 mmol/L (21.6-31.8); Non-African American GFR(CKD) 49.8 (60.0-200.0); Potassium 4.5 mmol/L (3.5-5.5)
== END | disposition home or self-care (01) ==
LOC: LABWHC1 16:49
PROVIDERS: ATTEND Nurse Practitioner Adult Health
DX: I48.0 Paroxysmal atrial fibrillation (principal); I10 Essential (primary) hypertension
CPT/HCPCS: 36415; 80048

== ENCOUNTER 2019-11-27 18:07 | Inpatient (IN) | payer MEDICARE ==
[2019-11-27 18:52] LABS: Glucose,Whole Blood 138 mg/dL (75-99)
[2019-11-27] MEDS ORDERED: SODIUM CHLORIDE 0.9% 1,000 ML IV ONE ×3 (18:52→20:35)
[2019-11-27 19:10] LABS: Basophils % (A) 0 %; Eosinophils # (A) 0.1 k/uL (0-0.7); Eosinophils % (A) 1 %; HCT 37.4 % (39.0-53.0); HGB 11.8 gm/dL (13.0-17.5); Lymphocytes # (A) 0.9 k/uL (1.0-4.8); Lymphocytes % (A) 9 %; MCH 28.4 pg (25.0-35.0); MCHC 31.6 g/dL (31.0-37.0); MCV 89.7 fL (80.0-100.0); Mean Platelet Volume 8.4; Monocytes # (A) 0.6 k/uL (0-1.0); Monocytes % (A) 6 %; Neutrophils # (A) 8.8 k/uL (1.3-7.7); Neutrophils % (A) 83 %; Platelet Count 126 k/uL (150-450); RBC 4.17 m/uL (4.30-5.90); RDW 12.9 % (11.5-15.5); WBC 10.6 k/uL (3.8-10.6)
[2019-11-27 19:18] LABS: Partial Thromboplastin Time 28.1 sec (22.0-30.0); Prothrombin Time 10.6 sec (9.0-12.0)
[2019-11-27 19:21] LABS: Calcium 9.3 mg/dL (8.4-10.2); Potassium 4.7 mmol/L (3.5-5.1); Total Bilirubin 0.7 mg/dL (0.2-1.3); Total Protein 6.8 g/dL (6.3-8.2)
--- NOTE | 2019-11-27 19:25 | XR ---
EXAMINATION TYPE: XR chest 2V DATE OF EXAM: 11/27/2019 COMPARISON: Chest x-ray July 26, 2018 HISTORY: Altered mental status, dehydration, weakness. TECHNIQUE: Frontal and lateral views of the chest are obtained. FINDINGS: There is chronic parenchymal changes greatest in the lung apices bilaterally without suspi cious new focal air space opacity, pleural effusion, or pneumothorax seen bilaterally. The cardiac s ilhouette size is stable and upper limits of normal with dual lead pacemaker along with atherosclerot ic thoracic aorta and metallic stent graft at the aortic root all redemonstrated. The osseous struc tures remain demineralized. Advanced degenerative change right glenohumeral joint partially imaged. IMPRESSION: Chronic changes without acute pulmonary process.
--- NOTE | 2019-11-27 19:41 | CT ---
EXAMINATION TYPE: CT brain wo con DATE OF EXAM: 11/27/2019 HISTORY: ams CT DLP: 1113.4 mGycm. Automated Exposure Control for Dose Reduction was Utilized. TECHNIQUE: CT scan of the head is performed without contrast. COMPARISON: CT brain July 26, 2018.. FINDINGS: There is no acute intracranial hemorrhage or midline shift identified. There is diffuse v entricular and sulcal prominence consistent with diffuse age-related cerebral atrophy. There is low- attenuation in the periventricular white matter consistent with chronic small vessel ischemic change. Patchy soft tissue density bilateral external auditory canals is felt to reflect cerumen . The jermaine bes are intact and the visualized sinuses are clear. IMPRESSION: No acute intracranial hemorrhage or midline shift. There is moderate diffuse cerebral a trophy and chronic small vessel ischemic change redemonstrated. No significant change from prior.
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
[2019-11-27 20:02] LABS: Appearance,Urine Clear (Clear); Bilirubin,Urine Negative (Negative); Blood,Urine Negative (Negative); Color,Urine Yellow; Glucose,Urine (UA) Negative (Negative); Ketones,Urine Negative (Negative); Leukocyte Esterase,Urine Trace (Negative); Mucus,Urine Rare /hpf; Nitrite,Urine Negative (Negative); PH, Urine 5.5 (5.0-8.0); Protein,Urine Negative (Negative); RBC,Urine 1 /hpf (0-5); Specific Gravity,Urine 1.017 (1.001-1.035); Urobilinogen,Urine <2.0 mg/dL (<2.0); WBC,Urine 1 /hpf (0-5)
[2019-11-27 20:32] LABS: Amphetamine Screen,Urine Not Detected (NotDetected); Barbiturate Screen,Urine Not Detected (NotDetected); Benzodiazepines Screen,Urine Detected (NotDetected); Cocaine Screen,Urine Not Detected (NotDetected); Methadone Screen, Urine Not Detected (NotDetected); Opiate Screen,Urine Not Detected (NotDetected); Oxycodone Screen, Urine Not Detected (NotDetected); Phencyclidine Screen,Urine Not Detected (NotDetected); Tricyclic Antidepressant,Urine Not Detected (NotDetected); Urn Cannabinoid Scrn Not Detected (NotDetected)
[2019-11-28] MEDS: APIXABAN 2.5 MG TABLET PO SCH ×3 (00:02→19:34)
[2019-11-28] MEDS: MIRTAZAPINE 15 MG TAB PO SCH ×2 (00:02→19:35)
[2019-11-28] MEDS: ATORVASTATIN 20 MG TAB PO SCH ×2 (00:02→19:35)
[2019-11-28 08:55] LABS: Glucose,Whole Blood 103 mg/dL (75-99)
[2019-11-28] MEDS: INSULIN ASPART (NovoLOG) 100 UNIT/ML VIAL SQ SCH ×4 (09:09→20:06)
[2019-11-28] MEDS ORDERED: lisinopriL 20 MG TAB PO SCH (09:30)
[2019-11-28] MEDS ORDERED: amLODIPine 5 MG TAB PO SCH (09:30)
[2019-11-28] MEDS: metFORMIN 500 MG TAB PO SCH ×2 (10:56→19:34)
[2019-11-28] MEDS: PANTOPRAZOLE 40 MG TABLET PO SCH (10:56)
[2019-11-28 11:04] LABS: Glucose,Whole Blood 91 mg/dL (75-99)
[2019-11-28 12:05] LABS: Basophils % (A) 0 %; Eosinophils # (A) 0.2 k/uL (0-0.7); Eosinophils % (A) 3 %; HCT 37.1 % (39.0-53.0); HGB 11.6 gm/dL (13.0-17.5); Lymphocytes # (A) 1.2 k/uL (1.0-4.8); Lymphocytes % (A) 14 %; MCH 28.4 pg (25.0-35.0); MCHC 31.3 g/dL (31.0-37.0); MCV 90.5 fL (80.0-100.0); Mean Platelet Volume 7.7; Monocytes # (A) 0.4 k/uL (0-1.0); Monocytes % (A) 4 %; Neutrophils # (A) 7.1 k/uL (1.3-7.7); Neutrophils % (A) 78 %; Platelet Count 108 k/uL (150-450); RDW 12.8 % (11.5-15.5)
[2019-11-28 12:23] LABS: African American GFR (CKD) >90 (>60 ml/min/1.73 sqM); Anion Gap 5 mmol/L; Blood Urea Nitrogen 19 mg/dL (9-20); Calcium 8.8 mg/dL (8.4-10.2); Carbon Dioxide 26 mmol/L (22-30); Chloride 109 mmol/L (98-107); Glucose 95 mg/dL (74-99); Non-African American GFR(CKD) 81 (>60 ml/min/1.73 sqM); Potassium 4.2 mmol/L (3.5-5.1); Sodium 140 mmol/L (137-145)
[2019-11-28 17:34] LABS: Glucose,Whole Blood 112 mg/dL (75-99)
[2019-11-28] MEDS: FERROUS SULFATE 325 MG TAB PO SCH (19:34)
[2019-11-28 20:07] LABS: Glucose,Whole Blood 162 mg/dL (75-99)
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
[2019-11-29 06:43] LABS: Glucose,Whole Blood 89 mg/dL (75-99)
[2019-11-29] MEDS: INSULIN ASPART (NovoLOG) 100 UNIT/ML VIAL SQ SCH ×4 (07:39→22:15)
[2019-11-29] MEDS: lisinopriL 10 MG TAB PO SCH (08:52)
[2019-11-29] MEDS: CYANOCOBALAMIN 500 MCG TAB PO SCH (08:52)
[2019-11-29] MEDS: APIXABAN 2.5 MG TABLET PO SCH ×2 (08:52→20:44)
[2019-11-29] MEDS: metFORMIN 500 MG TAB PO SCH ×2 (08:52→20:44)
[2019-11-29] MEDS: PANTOPRAZOLE 40 MG TABLET PO SCH (08:53)
[2019-11-29] MEDS ORDERED: CYANOCOBALAMIN 1,000 MCG/ML 1 ML VIAL IM ONE (09:00)
[2019-11-29 11:08] LABS: Glucose,Whole Blood 112 mg/dL (75-99)
[2019-11-29 16:54] LABS: Glucose,Whole Blood 89 mg/dL (75-99)
[2019-11-29] MEDS: ATORVASTATIN 20 MG TAB PO SCH (20:44)
[2019-11-29] MEDS: MIRTAZAPINE 15 MG TAB PO SCH (20:45)
[2019-11-29] MEDS: FERROUS SULFATE 325 MG TAB PO SCH (20:45)
[2019-11-29 23:06] LABS: Glucose,Whole Blood 93 mg/dL (75-99)
[2019-11-30 07:02] LABS: Glucose,Whole Blood 93 mg/dL (75-99)
[2019-11-30] MEDS: INSULIN ASPART (NovoLOG) 100 UNIT/ML VIAL SQ SCH ×4 (07:04→20:04)
[2019-11-30] MEDS: PANTOPRAZOLE 40 MG TABLET PO SCH (09:14)
[2019-11-30] MEDS: CYANOCOBALAMIN 500 MCG TAB PO SCH (09:14)
[2019-11-30] MEDS: metFORMIN 500 MG TAB PO SCH ×2 (09:14→19:45)
[2019-11-30] MEDS: lisinopriL 10 MG TAB PO SCH (09:14)
[2019-11-30] MEDS: APIXABAN 2.5 MG TABLET PO SCH ×2 (09:14→19:45)
[2019-11-30 10:54] LABS: Basophils % (A) 0 %; Eosinophils # (A) 0.2 k/uL (0-0.7); Eosinophils % (A) 2 %; HCT 35.6 % (39.0-53.0); HGB 11.4 gm/dL (13.0-17.5); Lymphocytes # (A) 1.2 k/uL (1.0-4.8); Lymphocytes % (A) 14 %; MCH 28.8 pg (25.0-35.0); MCHC 32.1 g/dL (31.0-37.0); MCV 89.6 fL (80.0-100.0); Mean Platelet Volume 7.5; Monocytes # (A) 0.4 k/uL (0-1.0); Monocytes % (A) 4 %; Neutrophils # (A) 6.5 k/uL (1.3-7.7); Neutrophils % (A) 78 %; Platelet Count 137 k/uL (150-450); RBC 3.97 m/uL (4.30-5.90); RDW 12.7 % (11.5-15.5); WBC 8.3 k/uL (3.8-10.6)
[2019-11-30 11:08] LABS: Albumin 3.7 g/dL (3.5-5.0); Calcium 9.6 mg/dL (8.4-10.2); Potassium 4.7 mmol/L (3.5-5.1); Total Bilirubin 0.7 mg/dL (0.2-1.3); Total Protein 6.5 g/dL (6.3-8.2)
[2019-11-30 11:36] LABS: Glucose,Whole Blood 98 mg/dL (75-99)
[2019-11-30] MEDS: SODIUM CHLORIDE 0.9% 1,000 ML IV SCH (15:00)
[2019-11-30 17:20] LABS: Glucose,Whole Blood 88 mg/dL (75-99)
[2019-11-30] MEDS: FERROUS SULFATE 325 MG TAB PO SCH (19:44)
[2019-11-30] MEDS: ATORVASTATIN 20 MG TAB PO SCH (19:44)
[2019-11-30] MEDS: MIRTAZAPINE 15 MG TAB PO SCH (19:45)
[2019-11-30 20:01] LABS: Glucose,Whole Blood 168 mg/dL (75-99)
[2019-12-01 07:23] LABS: Glucose,Whole Blood 94 mg/dL (75-99)
[2019-12-01] MEDS: INSULIN ASPART (NovoLOG) 100 UNIT/ML VIAL SQ SCH ×4 (07:29→21:58)
[2019-12-01] MEDS: CYANOCOBALAMIN 500 MCG TAB PO SCH ×2 (08:03→09:49)
[2019-12-01] MEDS: lisinopriL 10 MG TAB PO SCH ×2 (08:03→09:49)
[2019-12-01] MEDS: PANTOPRAZOLE 40 MG TABLET PO SCH ×2 (08:03→09:49)
[2019-12-01] MEDS: APIXABAN 2.5 MG TABLET PO SCH ×3 (08:03→19:28)
[2019-12-01] MEDS: metFORMIN 500 MG TAB PO SCH ×3 (08:03→19:28)
[2019-12-01] MEDS: SODIUM CHLORIDE 0.9% 1,000 ML IV SCH (11:00)
[2019-12-01 11:28] LABS: Glucose,Whole Blood 151 mg/dL (75-99)
--- NOTE | 2019-12-01 12:03 | P.PN ---
Subjective Progress Note Date: 11/29/19 Principal diagnosis: Altered mental status likely metabolic encephalopathy from dehydration volume depletion Dementia with behavioral disturbance. Patient is a 84-year-old male with a known history of hypertension, hyperlipidemia, osteoarthritis, diabetes type 2 chp-ixjawye-gumaahzmn, history of aortic stenosis, peripheral vascular disease, occasional back pain, hearing disorder/deafness, history of permanent pacemaker placement and mild cognitive impairment was brought to the hospital by his son. Patient is currently living in assisted living apartment when the son came to visit and he was altered mentally and felt very weak to stand. Patient himself is a poor historian and and also underlying deafness. Patient's son informed ER physician that according to facility staff patient did not have any fever or chills. No nausea vomiting or diarrhea. Patient was confused but denied any complaints. No history of recent fall. Laboratory data showed WBC 10.6, hemoglobin 11.8, platelets 126 BUN 29 creatinine 1.27 Blood sugar is 138 Troponin x1- Vitamin B12 level is 235 and TSH 1.53 UA negative for infection UDS is positive for benzodiazepines 11/29/2019 Patient is currently lying in the bed comfortable. Patient has not been eating very well. Awake alert but not communicative. Patient has been afebrile. No nausea vomiting or diarrhea. No chest pain or shortness of breath. Patient will be continued on B12 vitamin supplementation. complete review of systems could not be obtained from the patient. Objective - Vital Signs Vital signs: Vital Signs Temp 97.7 F 11/29/19 11:20 Pulse 61 11/29/19 11:20 Resp 18 11/29/19 11:20 BP 108/64 11/29/19 11:20 Pulse Ox 98 11/29/19 11:20 Intake & Output 11/29/19 11/29/19 11/30/19 06:59 18:59 06:59 Intake Total 400 Balance 400 Intake: Oral 400 Other: Voiding Method Diaper Diaper # Voids 1 2 - Exam PHYSICAL EXAMINATION: Patient is lying in the bed comfortably, no acute distress, awake alert and oriented. .. HEENT: Normocephalic. Neck is supple. Pupils reactive. Nostrils clear. Oral cavity is moist. Ears reveal no drainage. Neck reveals no JVD, carotid bruits, or thyromegaly. CHEST EXAMINATION: Trachea is central. Symmetrical expansion. Lung felton clear to auscultation and percussion. CARDIAC: Normal S1, S2 with no gallops. No murmurs ABDOMEN: Soft. Bowel sounds normal. No organomegaly. No abdominal bruits. Extremities: reveal no edema. No clubbing or cyanosis Neurologically awake, alert and oriented x 2-3,. well-coordinated movements. No gross focal deficits noted. deafness. Skin: No rash or skin lesions. Psychiatric: Coperative. could not be assesed completely. Musculoskeletal: No joint swelling or deformity. Normal range of motion. - Labs CBC & Chem 7: 11/30/19 10:34 11/30/19 10:34 Labs: Abnormal Lab Results - Last 24 Hours (Table) 11/29/19 Range/Units 11:07 POC Glucose (mg/dL) 112 H (75-99) mg/dL Assessment and Plan Assessment: Altered mental status likely metabolic encephalopathy from dehydration volume depletion Normocytic anemia with hemoglobin 11.8 Low normal vitamin B12 level Hypertension Diabetes type 2 pye-rmeynzy-iraxfphjb Hyperlipidemia Hearing disorder/deafness Osteoarthritis GERD History of heart murmur and aortic valve diseaseaortic stenosis History of permanent pacemaker placement Bioprosthetic Aortic valve. Currently on Eliquis. DVT prophylaxis with heparin subcu Patient was given IV hydration and continue to monitor renal function. TSH within normal limits. B12 level is in the low normal. Will continue with replacement. Blood pressure medications are on hold currently. Patient is on lisinopril/hydrochlorothiazide and Norvasc at home. Follow-up closely and further recommendations based on the clinical course. Time with Patient: Greater than 30
--- NOTE | 2019-12-01 12:04 | P.PN ---
Subjective Progress Note Date: 11/30/19 Principal diagnosis: Altered mental status likely metabolic encephalopathy from dehydration volume depletion Dementia with behavioral disturbance. Patient is a 84-year-old male with a known history of hypertension, hyperlipidemia, osteoarthritis, diabetes type 2 afq-xnqocyw-jeazbmwcy, history of aortic stenosis, peripheral vascular disease, occasional back pain, hearing disorder/deafness, history of permanent pacemaker placement and mild cognitive impairment was brought to the hospital by his son. Patient is currently living in assisted living apartment when the son came to visit and he was altered mentally and felt very weak to stand. Patient himself is a poor historian and and also underlying deafness. Patient's son informed ER physician that according to facility staff patient did not have any fever or chills. No nausea vomiting or diarrhea. Patient was confused but denied any complaints. No history of recent fall. Laboratory data showed WBC 10.6, hemoglobin 11.8, platelets 126 BUN 29 creatinine 1.27 Blood sugar is 138 Troponin x1- Vitamin B12 level is 235 and TSH 1.53 UA negative for infection UDS is positive for benzodiazepines 11/29/2019 Patient is currently lying in the bed comfortable. Patient has not been eating very well. Awake alert but not communicative. Patient has been afebrile. No nausea vomiting or diarrhea. No chest pain or shortness of breath. Patient will be continued on B12 vitamin supplementation. 11/30/2019 Patient is lying in the bed comfortably and more sleepy. Repeat laboratory data CBC and BMP and ammonia level was ordered Number patient has been afebrile. Not eating very well. Very minimal food intake. Patient was started on gentle hydration. complete review of systems could not be obtained from the patient. Objective - Vital Signs Vital signs: Vital Signs Temp 98.4 F 11/30/19 19:55 Pulse 80 11/30/19 19:55 Resp 16 11/30/19 19:55 BP 111/59 11/30/19 19:55 Pulse Ox 96 11/30/19 19:55 Intake & Output 11/30/19 11/30/19 12/01/19 06:59 18:59 06:59 Intake Total 100 Balance 100 Intake: Oral 100 Other: Voiding Method Diaper Diaper # Voids 1 2 - Exam PHYSICAL EXAMINATION: Patient is lying in the bed comfortably, no acute distress, awake alert and oriented. .. HEENT: Normocephalic. Neck is supple. Pupils reactive. Nostrils clear. Oral cavity is moist. Ears reveal no drainage. Neck reveals no JVD, carotid bruits, or thyromegaly. CHEST EXAMINATION: Trachea is central. Symmetrical expansion. Lung felton clear to auscultation and percussion. CARDIAC: Normal S1, S2 with no gallops. No murmurs ABDOMEN: Soft. Bowel sounds normal. No organomegaly. No abdominal bruits. Extremities: reveal no edema. No clubbing or cyanosis Neurologically awake, alert and oriented x 2-3,. well-coordinated movements. No gross focal deficits noted. deafness. Skin: No rash or skin lesions. Psychiatric: Coperative. could not be assesed completely. Musculoskeletal: No joint swelling or deformity. Normal range of motion. - Labs CBC & Chem 7: 11/30/19 10:34 11/30/19 10:34 Labs: Abnormal Lab Results - Last 24 Hours (Table) 11/30/19 11/30/19 11/30/19 Range/Units 10:34 10:34 19:59 RBC 3.97 L (4.30-5.90) m/uL Hgb 11.4 L (13.0-17.5) gm/dL Hct 35.6 L (39.0-53.0) % Plt Count 137 L (150-450) k/uL Chloride 108 H (98-107) mmol/L Glucose 118 H (74-99) mg/dL POC Glucose (mg/dL) 168 H (75-99) mg/dL Assessment and Plan Assessment: Altered mental status likely metabolic encephalopathy from dehydration volume depletion Normocytic anemia with hemoglobin 11.8 Low normal vitamin B12 level Hypertension Diabetes type 2 bwi-iwfkajf-kzgiqfxno Hyperlipidemia Hearing disorder/deafness Osteoarthritis GERD History of heart murmur and aortic valve diseaseaortic stenosis History of permanent pacemaker placement Bioprosthetic Aortic valve. Currently on Eliquis. DVT prophylaxis with heparin subcu Patient was given IV hydration.. I'll function normalized.l is in the low normal. Will continue with replacement. Blood pressure medications are on hold currently. Patient is on lisinopril/hydrochlorothiazide and Norvasc at home. Follow-up closely and further recommendations based on the clinical course. [facility] may need [facility].
[2019-12-01 17:38] LABS: Glucose,Whole Blood 83 mg/dL (75-99)
[2019-12-01] MEDS: FERROUS SULFATE 325 MG TAB PO SCH (19:28)
[2019-12-01] MEDS: ATORVASTATIN 20 MG TAB PO SCH (19:29)
[2019-12-01] MEDS: MIRTAZAPINE 15 MG TAB PO SCH (19:29)
[2019-12-01 21:13] LABS: Glucose,Whole Blood 124 mg/dL (75-99)
--- NOTE | 2019-12-02 00:34 | P.PN ---
Subjective Progress Note Date: 12/01/19 Principal diagnosis: Altered mental status likely metabolic encephalopathy from dehydration volume depletion Dementia with behavioral disturbance. Patient is a 84-year-old male with a known history of hypertension, hyperlipidemia, osteoarthritis, diabetes type 2 idi-nxpsbul-zzlqvzsec, history of aortic stenosis, peripheral vascular disease, occasional back pain, hearing disorder/deafness, history of permanent pacemaker placement and mild cognitive impairment was brought to the hospital by his son. Patient is currently living in assisted living apartment when the son came to visit and he was altered mentally and felt very weak to stand. Patient himself is a poor historian and and also underlying deafness. Patient's son informed ER physician that according to facility staff patient did not have any fever or chills. No nausea vomiting or diarrhea. Patient was confused but denied any complaints. No history of recent fall. Laboratory data showed WBC 10.6, hemoglobin 11.8, platelets 126 BUN 29 creatinine 1.27 Blood sugar is 138 Troponin x1- Vitamin B12 level is 235 and TSH 1.53 UA negative for infection UDS is positive for benzodiazepines 11/29/2019 Patient is currently lying in the bed comfortable. Patient has not been eating very well. Awake alert but not communicative. Patient has been afebrile. No nausea vomiting or diarrhea. No chest pain or shortness of breath. Patient will be continued on B12 vitamin supplementation. 11/30/2019 Patient is lying in the bed comfortably and more sleepy. Repeat laboratory data CBC and BMP and ammonia level was ordered Number patient has been afebrile. Not eating very well. Very minimal food intake. Patient was started on gentle hydration. 12/01/2019 Patient is currently lying in bed comfortably. Sometimes patient is more sleepy and confused. Possibly due to underlying dementia. Laboratory data including ammonia level within normal limits. Patient was encouraged with oral intake. No fever no chills. Saturating well on room air. No nausea vomiting or abdominal pain or diarrhea. No cough or sputum production. Anticipate discharge to rehab in the next 24 hours. complete review of systems could not be obtained from the patient. Objective - Vital Signs Vital signs: Vital Signs Temp 97.9 F 12/01/19 13:00 Pulse 60 12/01/19 13:00 Resp 16 12/01/19 13:00 BP 122/69 12/01/19 13:00 Pulse Ox 97 12/01/19 13:00 Intake & Output 11/30/19 12/01/19 12/01/19 18:59 06:59 18:59 Intake Total 200 400 Balance 200 400 Intake: Intake, IV Titration 200 400 Amount Sodium Chloride 0.9% 1, 200 400 000 ml @ 50 mls/hr IV . Q20H COUNT INCLUDES THE [facility] Rx#:[id number] Other: Voiding Method Diaper Diaper Diaper # Voids 2 2 2 - Exam PHYSICAL EXAMINATION: Patient is lying in the bed comfortably, no acute distress, awake alert and oriented x1-2. .. HEENT: Normocephalic. Neck is supple. Pupils reactive. Nostrils clear. Oral cavity is moist. Ears reveal no drainage. Neck reveals no JVD, carotid bruits, or thyromegaly. CHEST EXAMINATION: Trachea is central. Symmetrical expansion. Lung felton clear to auscultation and percussion. CARDIAC: Normal S1, S2 with no gallops. No murmurs ABDOMEN: Soft. Bowel sounds normal. No organomegaly. No abdominal bruits. Extremities: reveal no edema. No clubbing or cyanosis Neurologically awake, alert and oriented x 1-2,Noncommunicating.. well- coordinated movements. No gross focal deficits noted. deafness. Skin: No rash or skin lesions. Psychiatric: Coperative. could not be assesed completely. Musculoskeletal: No joint swelling or deformity. Normal range of motion. - Labs CBC & Chem 7: 11/30/19 10:34 11/30/19 10:34 Labs: Abnormal Lab Results - Last 24 Hours (Table) 11/30/19 12/01/19 Range/Units 19:59 11:27 POC Glucose (mg/dL) 168 H 151 H (75-99) mg/dL Assessment and Plan Assessment: Altered mental status likely metabolic encephalopathy from dehydration volume depletion.Back to baseline. Dementia. Normocytic anemia with hemoglobin 11.8 Low normal vitamin B12 level Hypertension Diabetes type 2 uxy-dwxgnfu-raxogzfsr Hyperlipidemia Hearing disorder/deafness Osteoarthritis GERD History of heart murmur and aortic valve diseaseaortic stenosis History of permanent pacemaker placement Bioprosthetic Aortic valve. Currently on Eliquis. DVT prophylaxis with heparin subcu Patient was given IV hydration.. renal function normalized.l is in the low normal. Will continue with b12 replacement. Blood pressure medications are on hold currently. Patient is on lisinopril/hydrochlorothiazide and Norvasc at home. Follow-up closely and further recommendations based on the clinical course. [facility] Time with Patient: Greater than 30
[2019-12-02] MEDS: SODIUM CHLORIDE 0.9% 1,000 ML IV SCH (05:35)
[2019-12-02 06:57] LABS: Glucose,Whole Blood 106 mg/dL (75-99)
[2019-12-02] MEDS: INSULIN ASPART (NovoLOG) 100 UNIT/ML VIAL SQ SCH ×4 (07:19→21:04)
[2019-12-02] MEDS: APIXABAN 2.5 MG TABLET PO SCH ×2 (07:50→19:28)
[2019-12-02] MEDS: PANTOPRAZOLE 40 MG TABLET PO SCH (07:50)
[2019-12-02] MEDS: CYANOCOBALAMIN 500 MCG TAB PO SCH (07:50)
[2019-12-02] MEDS: metFORMIN 500 MG TAB PO SCH ×2 (07:50→19:28)
[2019-12-02] MEDS: lisinopriL 10 MG TAB PO SCH (07:51)
[2019-12-02 11:22] LABS: Glucose,Whole Blood 109 mg/dL (75-99)
[2019-12-02] MEDS ORDERED: QUEtiapine 25 MG TAB PO PRN (14:10)
--- NOTE | 2019-12-02 16:30 | P.PN ---
Subjective Progress Note Date: 12/02/19 Principal diagnosis: Altered mental status likely metabolic encephalopathy from dehydration volume depletion Dementia with behavioral disturbance. Patient is a 84-year-old male with a known history of hypertension, hyperlipidemia, osteoarthritis, diabetes type 2 [id number], history of aortic stenosis, peripheral vascular disease, occasional back pain, hearing disorder/deafness, history of permanent pacemaker placement and mild cognitive impairment was brought to the hospital by his son. Patient is currently living in assisted living apartment when the son came to visit and he was altered mentally and felt very weak to stand. Patient himself is a poor historian and and also underlying deafness. Patient's son informed ER physician that according to facility staff patient did not have any fever or chills. No nausea vomiting or diarrhea. Patient was confused but denied any complaints. No history of recent fall. Laboratory data showed WBC 10.6, hemoglobin 11.8, platelets 126 BUN 29 creatinine 1.27 Blood sugar is 138 Troponin x1- Vitamin B12 level is 235 and TSH 1.53 UA negative for infection UDS is positive for benzodiazepines 11/29/2019 Patient is currently lying in the bed comfortable. Patient has not been eating very well. Awake alert but not communicative. Patient has been afebrile. No nausea vomiting or diarrhea. No chest pain or shortness of breath. Patient will be continued on B12 vitamin supplementation. 11/30/2019 Patient is lying in the bed comfortably and more sleepy. Repeat laboratory data CBC and BMP and ammonia level was ordered Number patient has been afebrile. Not eating very well. Very minimal food intake. Patient was started on gentle hydration. 12/01/2019 Patient is currently lying in bed comfortably. Sometimes patient is more sleepy and confused. Possibly due to underlying dementia. Laboratory data including ammonia level within normal limits. Patient was encouraged with oral intake. No fever no chills. Saturating well on room air. No nausea vomiting or abdominal pain or diarrhea. No cough or sputum production. Anticipate discharge to rehab in the next 24 hours. complete review of systems could not be obtained from the patient. 12/02/2019 Patient is seen and evaluated in follow-up with no acute overnight issues. Patient continues to be confused although per nursing staff was more alert today and ate 100% of his meals and had a large bowel movement today. Patient continues to need encouragement with oral intake but was eating meals today. No reports of nausea and vomiting noted. Patient is afebrile. Not in any respiratory distress. Case management and social work following and awaiting authorization for ECF placement. Will continue to monitor closely. Objective - Vital Signs Vital signs: Vital Signs Temp 97.9 F 12/02/19 12:08 Pulse 69 12/02/19 12:08 Resp 17 12/02/19 12:08 BP 137/67 12/02/19 12:08 Pulse Ox 99 12/02/19 12:08 Intake & Output 12/01/19 12/02/19 12/02/19 18:59 06:59 18:59 Intake Total 400 250 Balance 400 250 Intake: Intake, IV Titration 400 Amount Sodium Chloride 0.9% 1, 400 000 ml @ 50 mls/hr IV . Q20H [facility] Rx#:[id number] Oral 250 Other: Voiding Method Diaper Diaper Diaper Incontinent # Voids 2 2 # Bowel Movements 1 - Exam Patient is sitting up in the bed comfortably, no acute distress, awake alert and oriented x1-2. .. Hard of hearing HEENT: Normocephalic. Neck is supple. Pupils reactive. Nostrils clear. Oral cavity is moist. Ears reveal no drainage. Neck reveals no JVD, carotid bruits, or thyromegaly. CHEST EXAMINATION: Trachea is central. Symmetrical expansion. Lung felton clear to auscultation and percussion. CARDIAC: Normal S1, S2 with no gallops. No murmurs ABDOMEN: Soft. Bowel sounds normal. No organomegaly. No abdominal bruits. Extremities: reveal no edema. No clubbing or cyanosis Neurologically awake, alert and oriented x 1-2,. well-coordinated movements. No gross focal deficits noted. deafness. Skin: No rash or skin lesions. Psychiatric: Cooperative. could not be assesed completely. Musculoskeletal: No joint swelling or deformity. Normal range of motion. - Labs CBC & Chem 7: 11/30/19 10:34 11/30/19 10:34 Labs: Abnormal Lab Results - Last 24 Hours (Table) 12/01/19 12/02/19 12/02/19 Range/Units 21:03 06:55 11:21 POC Glucose (mg/dL) 124 H 106 H 109 H (75-99) mg/dL Assessment and Plan Assessment: Altered mental status likely metabolic encephalopathy from dehydration volume depletion.Back to baseline. Dementia. Normocytic anemia with hemoglobin 11.8 Low normal vitamin B12 level Hypertension Diabetes type 2 tnh-rinvdti-epaskyuin Hyperlipidemia Hearing disorder/deafness Osteoarthritis GERD History of heart murmur and aortic valve diseaseaortic stenosis History of permanent pacemaker placement Bioprosthetic Aortic valve. Currently on Eliquis. DVT prophylaxis with heparin subcu Plan: Continue current medications, management, and symptomatic treatment. Blood pressure medications currently on hold and will continue to monitor closely. Aw celeing authorization for insurance for ECF for continued PT/OT therapy. Further recommendations to follow. Possible discharge in 24 hours.
[2019-12-02 16:55] LABS: Glucose,Whole Blood 117 mg/dL (75-99)
[2019-12-02] MEDS: ATORVASTATIN 20 MG TAB PO SCH (19:28)
[2019-12-02] MEDS: FERROUS SULFATE 325 MG TAB PO SCH (19:28)
[2019-12-02] MEDS: MIRTAZAPINE 15 MG TAB PO SCH (19:28)
[2019-12-02 20:45] VITALS: RESP 16
[2019-12-02 21:05] LABS: Glucose,Whole Blood 152 mg/dL (75-99)
[2019-12-03] MEDS: SODIUM CHLORIDE 0.9% 1,000 ML IV SCH (03:15)
[2019-12-03 07:13] LABS: Glucose,Whole Blood 99 mg/dL (75-99)
[2019-12-03] MEDS: INSULIN ASPART (NovoLOG) 100 UNIT/ML VIAL SQ SCH ×3 (07:54→18:17)
[2019-12-03] MEDS: PANTOPRAZOLE 40 MG TABLET PO SCH (08:01)
[2019-12-03] MEDS: metFORMIN 500 MG TAB PO SCH (08:01)
[2019-12-03] MEDS: APIXABAN 2.5 MG TABLET PO SCH (08:01)
[2019-12-03] MEDS: lisinopriL 10 MG TAB PO SCH (08:01)
[2019-12-03] MEDS: CYANOCOBALAMIN 500 MCG TAB PO SCH (08:02)
[2019-12-03 12:07] LABS: Glucose,Whole Blood 103 mg/dL (75-99)
[2019-12-03 13:26] VITALS: BP 139/75; PULSE 64; TEMP 97.7
--- NOTE | 2019-12-03 15:12 | P.DS ---
Providers Date of admission: 12/01/19 15:46 Expected date of discharge: 12/03/19 Attending physician: Marvin Graves Primary care physician: Rudy Arce [facility] Course: Final diagnosis Altered mental status likely metabolic encephalopathy from dehydration volume depletion, improved Dementia Covid 19 ruled out, testing was negative Normocytic anemia with hemoglobin 11.8 Low normal vitamin B12 level Hypertension Diabetes type 2 rfm-lhplfxg-lydkbrnsq Hyperlipidemia Hearing disorder/deafness Osteoarthritis GERD History of heart murmur and aortic valve diseaseaortic stenosis History of permanent pacemaker placement Bioprosthetic Aortic valve. DVT prophylaxis Discharge disposition Patient is being discharged in a stable condition with guarded prognosis to [facility] . Patient will follow-up with Dr. Arce upon discharge. Total time taken is 35 minutes. History of present illness This is a 84-year-old male who was recently admitted with altered mental status and dehydration and was being closely monitored. Patient does have a history of dementia as well. Patient was initiated on IV fluids and improved. BMP improved. Patient continued to be weak and was evaluated by physical therapy recommended subacute rehab. Patient currently was living in assisted living and son felt that he needed more care. Patient will be discharged to [facility] today. Patient is extremely hard of hearing and does use hearing aids. Patient was tested for Covid 19 which was negative. Currently no reports of chest pain, shortness of breath, or palpitations. Patient is afebrile. No reports of nausea or vomiting and patient is tolerating diet. Guarded prognosis. On exam vital signs are stable. Temp is 97.7F, pulse is 64, respirations are 16, blood pressure is 139/75, oxygen saturation is 97% on room air. Cardio S1, S2 are muffled. Respiratory shows diminished breath sounds at the bases with no wheezing or rhonchi noted. Abdomen is soft and nontender. Nervous system shows no focal deficits. Please refer to medication reconciliation sheet for a list of medications. Patient Condition at Discharge: Stable Plan - Discharge Summary Discharge Rx Participant: No New Discharge Prescriptions: New Cyanocobalamin [Vitamin B-12] 1,000 mcg PO DAILY #30 tab QUEtiapine [SEROquel] 25 mg PO HS PRN tab PRN Reason: Agitation lisinopriL [Zestril] 10 mg PO DAILY tab Continue metFORMIN HCL [Glucophage] 500 mg PO BID@0930,1930 Omeprazole [PriLOSEC] 20 mg PO DAILY@929 Atorvastatin [Lipitor] 20 mg PO HS@1929 Mirtazapine [Remeron] 15 mg PO HS@1929 Ferrous Sulfate [Iron (65 MG Elemental)] 325 mg PO HS@1929 Apixaban [Eliquis] 2.5 mg PO BID@ Discontinued lisinopriL 40 mg PO DAILY@929 hydroCHLOROthiazide [Hydrodiuril] 12.5 mg PO DAILY@929 amLODIPine [Norvasc] 5 mg PO DAILY@929 Discharge Medication List Omeprazole [PriLOSEC] 20 mg PO DAILY@92905/10/14 [History] metFORMIN HCL [Glucophage] 500 mg PO BID@929,192905/10/14 [History] Atorvastatin [Lipitor] 20 mg PO HS@192905/17/18 [History] Ferrous Sulfate [Iron (65 MG Elemental)] 325 mg PO HS@192907/26/18 [History] Mirtazapine [Remeron] 15 mg PO HS@192907/26/18 [History] Apixaban [Eliquis] 2.5 mg PO BID@929,199911/27/19 [History] Cyanocobalamin [Vitamin B-12] 1,000 mcg PO DAILY #30 tab 11/29/19 [Rx] QUEtiapine [SEROquel] 25 mg PO HS PRN tab 12/03/19 [Rx] lisinopriL [Zestril] 10 mg PO DAILY tab 12/03/19 [Rx] Follow up Appointment(s)/Referral(s): Rudy Arce MD [Primary Care Provider] - 1-2 days Activity/Diet/Wound Care/Special Instructions: Patient is going to [facility] Activity as tolerated Continue current diet Follow-up with orthopedic surgery in the outpatient setting Discharge Disposition: TRANSFER TO SNF/F
== END 2019-12-03 18:57 | DRG 640 ==
LOC: EC 18:07 → 5NMEDONC 20:06 → OBSVTOIN 12-01 15:46
PROVIDERS: ADMIT Internal Medicine; ATTEND Internal Medicine
DX: E86.0 Dehydration (principal); G93.41 Metabolic encephalopathy; F03.91 Unspecified dementia, unspecified severity, with behavioral disturbance; E11.51 Type 2 diabetes mellitus with diabetic peripheral angiopathy without gangrene; D64.9 Anemia, unspecified; E78.5 Hyperlipidemia, unspecified; I10 Essential (primary) hypertension; I35.0 Nonrheumatic aortic (valve) stenosis; K21.9 Gastro-esophageal reflux disease without esophagitis; Z20.828 Contact with and (suspected) exposure to other viral communicable diseases; M19.90 Unspecified osteoarthritis, unspecified site; H91.93 Unspecified hearing loss, bilateral; R32 Unspecified urinary incontinence; Z79.84 Long term (current) use of oral hypoglycemic drugs; Z79.01 Long term (current) use of anticoagulants; Z79.899 Other long term (current) drug therapy; Z95.0 Presence of cardiac pacemaker; Z91.81 History of falling; Z96.1 Presence of intraocular lens; Z98.42 Cataract extraction status, left eye; Z98.41 Cataract extraction status, right eye; Z90.89 Acquired absence of other organs; Z98.890 Other specified postprocedural states; Z87.440 Personal history of urinary (tract) infections; Z86.14 Personal history of Methicillin resistant Staphylococcus aureus infection; Z95.2 Presence of prosthetic heart valve; Z81.1 Family history of alcohol abuse and dependence; Z80.9 Family history of malignant neoplasm, unspecified
CPT/HCPCS: 36415; 70450; 71046; 80048; 80053; 80306; 81001; 82140; 82607; 84443; 84484; 85025; 85610; 85730; 87635; 93005; 96360; 96361; 99285

== ENCOUNTER 2019-12-23 11:26 | Emergency (ER) | payer MEDICARE ==
[2019-12-23 11:42] LABS: Glucose,Whole Blood 123 mg/dL (75-99)
[2019-12-23 11:44] VITALS: RESP 18
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
--- NOTE | 2019-12-23 12:18 | CT ---
EXAMINATION TYPE: CT brain cspine wo con DATE OF EXAM: 12/23/2019 COMPARISON: Brain 11/27/2019 HISTORY: 84-year-old male with fall and pain after head injury CT DLP: 1321.1 mGycm Automated exposure control for dose reduction was used. Technique: Examination of the head was done in axial plane without intravenous contrast. Coronal and sagittal reconstructions performed. CT of the cervical spine was obtained in axial plane without intravenous injection of contrast mater ial. Coronal and sagittal reformatted images were obtained from the axial views for evaluation of f ractures, spinal alignment and canal. FINDINGS: Head: There is no evidence of acute intracranial hemorrhage, acute ischemic changes, mass, mass-effect, or extra-axial fluid collection. There is no effacement of cerebral sulci or basal subarachnoid cister ns. There is no midline shift. Duggan-white matter distinction is preserved. Moderate hydrocephalus, Payne ratio calculated at 0.4, similar to prior exam. Moderate patchy and con fluent white matter hypodensities in both cerebral hemispheres. Moderate mucosal thickening posterior right ethmoid air cells. Mild right frontal scalp contusion. No underlying calvarial fracture. Some trapped fluid inferior right mastoid air cells. Cervical spine: No craniocervical junction abnormality, predental space widening, or prevertebral soft tissue swellin g. Degenerative changes at the C1 dens articulation. Mild to moderate degenerative disc disease throughout. Scattered facet and uncovertebral joint arthro tia. Degenerative grade 1 anterolisthesis C3-C4 and C7-T1. No acute fracture seen of the cervical spine. No central spinal canal stenosis by CT. At C3-C4, severe left neural foraminal stenosis. At C5-C6, moderate right neuroforaminal stenosis. Degenerative change at the right AC joint and right shoulder. Biapical pleural-parenchymal scarring. Sagittal and coronal reformatted images confirm above findings. COMBINED IMPRESSION: 1. Similar moderate hydrocephalus likely in part due to central cerebral atrophy. However, given the degree of ventriculomegaly (Andrea's ratio 0.4), consideration should be given to NPH. 2. Mild right frontal scalp contusion. No acute intracranial abnormality seen. 3. Moderate multilevel spondylotic change with degenerative grade 1 anterolisthesis at C3-C4 and C7-T 1. No acute fracture of the cervical spine. 4. Some fluid within the inferior right mastoid air cells. Correlate for any mastoid pain to exclude mastoiditis.
--- NOTE | 2019-12-23 13:04 | XR ---
EXAMINATION TYPE: XR chest 1V DATE OF EXAM: 12/23/2019 COMPARISON: 11/27/2019 HISTORY: 84-year-old male with fall and pain TECHNIQUE: Single frontal view of the chest is obtained. FINDINGS: Left anterior chest wall pacemaker generator with right atrial and right ventricular leads. Endovascu lar aortic valve replacement. Advanced degenerative change right shoulder. Rightward patient rotation IS a normal cardiac and mediastinal contours. Heart upper limits of normal in size. Mild diffuse int erstitial density appears unchanged. No hood consolidation or pleural effusion. IMPRESSION: Rotated exam. Chronic appearing changes. No definite acute process.
--- NOTE | 2019-12-23 13:06 | XR ---
EXAMINATION TYPE: XR elbow complete RT DATE OF EXAM: 12/23/2019 COMPARISON: NONE HISTORY: 84-year-old male with elbow pain after fall TECHNIQUE: 3 views FINDINGS: Corticated osseous density at the medial epicondyle. No acute fracture, subluxation, dislocation. No evident elbow joint effusion. IMPRESSION: Some bony changes compatible with chronic tendinopathy of the common flexor tendon origin. No acute o sseous abnormality seen.
--- NOTE | 2019-12-23 13:09 | XR ---
EXAMINATION TYPE: AP view pelvis and 2 views bilateral hips DATE OF EXAM: 12/23/2019 COMPARISON: 07/26/2018 HISTORY: 84-year-old male with bilateral hip pain after fall FINDINGS: Degenerative changes lower lumbar spine. Mild degenerative change of both hips. Diffuse osteopenia. N o acute fracture seen at the left hip. Limited assessment of the right lower femoral neck due to external rotation at the hip during image a cquisition. No displaced fracture is seen. IMPRESSION: 1. Osteopenia. No displaced fracture seen. Particularly on the right, assessment of the lower right f emoral neck is limited due to external rotation of the hip during image acquisition. If the patient i s nonweightbearing, MRI can increase sensitivity for the detection of an occult osseous injury. 2. Mild bilateral hip OA. Degenerative changes lower lumbar spine.
[2019-12-23 14:32] VITALS: BP 138/64; PULSE 66; TEMP 98.6
== END 2019-12-23 14:20 | disposition home or self-care (01) ==
LOC: EC 11:26
DX: S01.81XA Laceration without foreign body of other part of head, initial encounter (principal); G91.9 Hydrocephalus, unspecified; E11.51 Type 2 diabetes mellitus with diabetic peripheral angiopathy without gangrene; E78.5 Hyperlipidemia, unspecified; I10 Essential (primary) hypertension; F03.90 Unspecified dementia, unspecified severity, without behavioral disturbance, psychotic disturbance, mood disturbance, and anxiety; I25.10 Atherosclerotic heart disease of native coronary artery without angina pectoris; K21.9 Gastro-esophageal reflux disease without esophagitis; Z79.01 Long term (current) use of anticoagulants; Z79.84 Long term (current) use of oral hypoglycemic drugs; Z79.899 Other long term (current) drug therapy; Z95.0 Presence of cardiac pacemaker; W19.XXXA Unspecified fall, initial encounter
CPT/HCPCS: 36415; 70450; 71045; 72125; 73521; 99285